=== PATIENT | female | born 1995 | race Caucasian/White ===

== ENCOUNTER 2016-10-22 15:27 | Emergency (ER) | payer MEDICAID ==
[~2016-10-22] VITALS: Ht 157.5 cm; Wt 85.3 kg
[~2016-10-22 15:27] MED LIST: ACHYD1T PO; AMOX-355 PO; AMOX500C2 PO; BCP PO; BIRTH CONTROL PO; CEPH-38 PO; DCS100C PO; FLC100T1 PO; FLUO20CA42 PO; IBP800T PO; IBUP-1780 PO; METR500T PO; NITR-65 PO; NITR100C44 PO; OXYC-202 PO; OXYC1TAB12 PO; PREN-93 PO; PREN1TAB39 PO; SULF1TAB35 PO
--- OUTSIDE RECORDS SUMMARY | 2016-10-22 15:32 | XMS REPORT | Continuity of Care Document ---
Author Author [facility] Organization [facility] Address Unknown Phone Unavailable Care Team Providers Care Transportation Department Head Name Role Phone NO, LOCAL PHYSICIAN PCP Unavailable Insurance Providers Payer Name Policy Number Subscriber Name Relationship [facility] [place] [facility] [employer] [id number] Irma Clark 17 Self / Same As Patient Advance Directives Directive Response Recorded Date/Time Advance Directives No 08/12/16 12:23am Health Care Power of Network Designer No 08/12/16 12:23am Organ Donor No 08/12/16 12:23am Resuscitation Status Full Code 08/12/16 12:23am Chief Complaint and Reason for Visit Chief Complaint Abdominal/GI Problems Reason for Visit Urinary tract infection Lower abdominal pain Constipation Problems Active Problems Medical Problem Onset Date Status Constipation Unknown Acute Lower abdominal pain Unknown Acute Menorrhagia Unknown Acute Threatened miscarriage in early Unknown Acute Threatened miscarriage in early Unknown Acute Urinary tract infection Unknown Acute Medications Current Home Medications Medication Dose Units Route Directions Days/Qty Instructions Start Date Sulfamethoxazole/Trimethoprim 1 Each 1 Each Oral Twice A Day 14 Past Home Medications Medication Directions Ordered Status Vits W-Ca,Fe,Fa(<1MG) 1 Each Tablet, 1 Each Oral 10/08/11 Discontinued Acetaminophen/Hydrocodone Bitart 1 Tab Tablet, 1 Tab Oral Every 6 Hours 12/03 Discontinued [ Control] , 1 Tab Oral Daily 09/30/12 Discontinued Amoxicillin 500 Mg Capsule, 1 Each Oral Three Times A Day 03/25/14 Discontinued Nitrofurantoin Macrocrystals 100 Mg Capsule, 1 Cap Oral Twice A Day 08/29/14 Discontinued Cephalexin Monohydrate 500 Mg Capsule, 1 Each Oral Three Times A Day Discontinued Vit/Fe Fumarate/Fa 1 Each Tablet, 1 Each Oral Daily 09/04/14 Discontinued Nitrofurantoin/Nitrofuran Mac 100 Mg Capsule, 100 Mg Oral Twice A Day Discontinued Metronidazole (Flagyl) 500 Mg Tablet, 1 Each Oral Twice A Day 12/15/14 Discontinued Docusate Sodium 100 Mg Cap, 100 Mg Oral Twice A Day 04/17/15 Discontinued Ibuprofen 800 Mg Tab, 800 Mg Oral Every 6 Hours 04/17/15 Discontinued Oxycodone Hcl/Acetaminophen 1 Tab Tablet, 1-2 Tab Oral Every 4HRS as needed for Pain 04/17/15 Discontinued Fluoxetine Hcl 20 Mg Capsule, 20 Mg Oral Daily 05/22/15 Discontinued [Bcp] , 1 Tab Oral Daily 06/17/15 Discontinued Oxycodone Hcl/Acetaminophen 1 Each Tablet, 1-2 Tab Oral Every 4HRS as needed for Pain 06/18/15 Discontinued Oxycodone Hcl/Acetaminophen 1 Each Tablet, 1-2 Tab Oral Every 4HRS as needed for Pain 07/07/15 Discontinued Ibuprofen 800 Mg Tablet, 800 Mg Oral Every 8HRS as needed for Pain 07/07/15 Discontinued Social History Social History Problem Response Recorded Date/Time Alcohol Use Denies Use 07/07/2015 6:20am Recreational Drug Use No 07/07/2015 6:20am Recent Foreign Travel No 08/12/2016 12:23am Recent Infectious Disease Exposure No 08/12/2016 12:23am Sexually Transmitted Disease No 08/12/2016 12:23am HIV/AIDS No 08/12/2016 12:23am Smoking Status Never a Smoker 08/12/2016 12:23am Do you dip or chew tobacco? No 07/07/2015 6:20am Recent Hopitalizations No 08/12/2016 12:23am Sexually Transmitted Disease No 08/12/2016 12:23am Hx Sexually Transmitted Disorders No 02/08/2013 12:46pm Query Response Start Date Stop Date Smoking Status Never a Smoker Hospital Discharge Instructions No hospital discharge instructions. Plan of Care Discharge Date 08/12/16 1:57am Disposition 01 HOME, SELF-CARE Condition at Discharge Improved Instructions/Education Provided Urinary Tract Infection, Adult (DC) Prescriptions See Medication Section Referrals NO,LOCAL PHYSICIAN - Primary Care Physician Additional Instructions/Education Drink plenty of clear liquids. Complete your antibiotics as prescribed. Follow-up on your urine culture results on Tuesday to ensure you are on appropriate antibiotics. Return to care if symptoms worsen. You may take Tylenol and ibuprofen for pain. You may use a stool softener or gentle laxative such as MiraLAX (polyethylene glycol) as needed for constipation. All discharge instructions reviewed with patient and/or family. Voiced understanding. Functional Status No functional status results. Allergies, Adverse Reactions, Alerts Allergen Type Severity Reaction Status Last Updated cefaclor ([id number]) Allergy Unknown Active 04/14/15 Levofloxacin Allergy Unknown Active 08/12/16 Immunizations No immunization records. Vital Signs Acute Vital Signs Vital Response Date/Time Temperature (Fahrenheit) 97.0 degrees F (97.6 - 99.5) 08/12/2016 12:23am Temperature (Calculated Celsius) 36.33059 degrees C (36.4 - 37.5) 08/12/2016 12:23am Temperature Source Temporal 08/12/2016 12:23am Pulse Rate (adult) 94 bpm (60 - 90) 08/12/2016 12:23am Respiratory Rate 18 bpm (12 - 24) 08/12/2016 12:23am O2 Sat by Pulse Oximetry 99 % (88 - 100) 08/12/2016 12:23am Blood Pressure 138/81 mm Hg 08/12/2016 12:23am Blood Pressure Mean 100 mm Hg 08/12/2016 12:23am Pain Numeric Pain Scale 9 08/12/2016 12:23am Height (Feet) 5 feet 08/12/2016 12:23am Height (Inches) 3 inches 08/12/2016 12:23am Height (Calculated Centimeters) 160.244636 cm 08/12/2016 12:23am Weight (Pounds) 186 pounds 08/12/2016 12:23am Weight (Ounces) 0.2 oz 08/12/2016 12:23am Weight (Calculated Grams) 75932.189 gm 08/12/2016 12:23am Weight (Calculated Kilograms) 84.592139 kilograms 08/12/2016 12:23am Calculated BMI 30.72 08/12/2016 12:23am Capillary Refill Capillary Refill Less Than 3 Seconds 08/12/2016 12:23am Results Laboratory Results Test Name Result Units Flags Reference Collection Date/Time Result Date/ Time Comments White Blood Count 9.4 10^3/uL 4.3-11.0 08/12/2016 12:35am 08/12/2016 12 :47am Red Blood Count 4.73 10^6/uL 4.35-5.85 08/12/2016 12:35am 08/12/2016 12 :47am Hemoglobin 14.5 G/DL 11.5-16.0 08/12/2016 12:35am 08/12/2016 12:47am Hematocrit 42 % 35-52 08/12/2016 12:35am 08/12/2016 12:47am Mean Corpuscular Volume 88 FL 80-99 08/12/2016 12:35am 08/12/2016 12: 47am Mean Corpuscular Hemoglobin 31 PG 25-34 08/12/2016 12:35am 08/12/2016 12:47am Mean Corpuscular Hemoglobin Concent 35 G/DL 32-36 08/12/2016 12:35am 12:47am Red Cell Distribution Width 12.7 % 10.0-14.5 08/12/2016 12:35am 2015 12:47am Platelet Count 339 10^3/uL 130-400 08/12/2016 12:35am 08/12/2016 12: 47am Mean Platelet Volume 10.7 FL H 7.4-10.4 08/12/2016 12:35am 08/12/2016 12: 47am Neutrophils (%) (Auto) 49 % 42-75 08/12/2016 12:35am 08/12/2016 12: 47am Lymphocytes (%) (Auto) 42 % 12-44 08/12/2016 12:35am 08/12/2016 12: 47am Monocytes (%) (Auto) 7 % 0-12 08/12/2016 12:35am 08/12/2016 12:47am Eosinophils (%) (Auto) 2 % 0-10 08/12/2016 12:35am 08/12/2016 12:47am Basophils (%) (Auto) 0 % 0-10 08/12/2016 12:35am 08/12/2016 12:47am Neutrophils # (Auto) 4.6 X 10^3 1.8-7.8 08/12/2016 12:35am 08/12/2016 12:47am Lymphocytes # (Auto) 3.9 X 10^3 1.0-4.0 08/12/2016 12:35am 08/12/2016 12:47am Monocytes # (Auto) 0.7 X 10^3 0.0-1.0 08/12/2016 12:35am 08/12/2016 12: 47am Eosinophils # (Auto) 0.2 10^3/uL 0.0-0.3 08/12/2016 12:35am 08/12/2016 12:47am Basophils # (Auto) 0.0 10^3/uL 0.0-0.1 08/12/2016 12:35am 08/12/2016 12 :47am Urine Color YELLOW 08/12/2016 12:28am 08/12/2016 12:46am Urine Clarity CLEAR 08/12/2016 12:28am 08/12/2016 12:46am Urine pH 5 5-9 08/12/2016 12:28am 08/12/2016 12:46am Urine Specific [place] 1.025 * 1.016-1.022 08/12/2016 12:28am 2015 12:46am Urine Protein NEGATIVE NEGATIVE 08/12/2016 12:28am 08/12/2016 12: 46am Urine Glucose (UA) NEGATIVE NEGATIVE 08/12/2016 12:28am 08/12/2016 12 :46am Urine RBC (Auto) 1+ * NEGATIVE 08/12/2016 12:28am 08/12/2016 12:46am Urine Ketones NEGATIVE NEGATIVE 08/12/2016 12:28am 08/12/2016 12: 46am Urine Nitrite NEGATIVE NEGATIVE 08/12/2016 12:28am 08/12/2016 12: 46am Urine Bilirubin NEGATIVE NEGATIVE 08/12/2016 12:28am 08/12/2016 12: 46am Urine Urobilinogen NORMAL MG/DL NORMAL 08/12/2016 12:28am 08/12/2016 12 :46am Urine Leukocyte Esterase 3+ * NEGATIVE 08/12/2016 12:28am 08/12/2016 12 :46am Urine RBC RARE /HPF 08/12/2016 12:28am 08/12/2016 12:46am Urine WBC 5-10 /HPF * 08/12/2016 12:28am 08/12/2016 12:46am Urine Bacteria FEW /HPF * 08/12/2016 12:28am 08/12/2016 12:46am Urine Squamous Epithelial Cells 5-10 /HPF 08/12/2016 12:28am 2015 12:46am Urine Crystals NONE /LPF 08/12/2016 12:28am 08/12/2016 12:46am Urine Casts NONE /LPF 08/12/2016 12:28am 08/12/2016 12:46am Urine Mucus SMALL /LPF * 08/12/2016 12:28am 08/12/2016 12:46am Urine Culture Indicated YES 08/12/2016 12:28am 08/12/2016 12:46am Sodium Level 141 MMOL/L 135-145 08/12/2016 12:35am 08/12/2016 1:02am Potassium Level 3.6 MMOL/L 3.6-5.0 08/12/2016 12:35am 08/12/2016 1: 02am Chloride Level 105 MMOL/L 98-107 08/12/2016 12:35am 08/12/2016 1:02am Carbon Dioxide Level 23 MMOL/L 21-32 08/12/2016 12:35am 08/12/2016 1: 02am Anion Gap 13 MMOL/L 5-14 08/12/2016 12:35am 08/12/2016 1:02am Blood Urea Nitrogen 8 MG/DL 7-18 08/12/2016 12:35am 08/12/2016 1:02am Creatinine 0.74 MG/DL 0.60-1.30 08/12/2016 12:35am 08/12/2016 1:02am BUN/Creatinine Ratio 08/12/2016 12:35am 08/12/2016 1:02am Estimat Glomerular Filtration Rate > 60 08/12/2016 12:35am 2015 1:02am GFR INTERPRETIVE DATA UNITS FOR ESTIMATED GFR (eGFR): mL/min/1.73 M2 REFERENCE RANGE FOR ESTIMATED GFR (eGFR) eGFR NORMAL eGFR >60 MODERATELY DECREASED eGFR 30-59 SEVERLY DECREASED eGFR 15-29 KIDNEY FAILURE <15 (OR DIALYSIS) Glucose Level 108 MG/DL H 70-105 08/12/2016 12:35am 08/12/2016 1:02am Calcium Level 9.6 MG/DL 8.5-10.1 08/12/2016 12:35am 08/12/2016 1:02am Total Bilirubin 0.4 MG/DL 0.1-1.0 08/12/2016 12:35am 08/12/2016 1:02am Alkaline Phosphatase 51 U/L 40-136 08/12/2016 12:35am 08/12/2016 1: 02am Aspartate Amino Transf (AST/SGOT) 11 U/L 5-34 08/12/2016 12:35am 2015 1:02am Alanine Aminotransferase (ALT/SGPT) 15 U/L 0-55 08/12/2016 12:35am 12/2015 1:02am Total Protein 6.6 G/DL 6.4-8.2 08/12/2016 12:35am 08/12/2016 1:02am Albumin 4.3 G/DL 3.2-4.5 08/12/2016 12:35am 08/12/2016 1:02am Procedures No known history of procedures. Encounters Encounter Location Arrival/Admit Date Discharge/Depart Date Attending Provider Registered Emergency Room [facility] 08/12/16 12:13am JOSS DAMON MD Recent Diagnosis
[2016-10-22] MEDS ORDERED: diphenhydrAMINE 50 MG/ML INJ (BENADRYL) IVP ONE (15:45)
[2016-10-22] MEDS ORDERED: KETOROLAC 30 MG/ML VIAL IVP ONE (15:45)
[2016-10-22 16:01] LABS: BASOPHILS % (AUTO) 0 % (0-10); EOSINOPHILS # (AUTO) 0.1 10^3/uL (0.0-0.3); EOSINOPHILS % (AUTO) 2 % (0-10); LYMPHOCYTES # (AUTO) 2.2 X 10^3 (1.0-4.0); LYMPHOCYTES % (AUTO) 32 % (12-44); MEAN CORPUSCULAR HEMOGLOBIN 30 PG (25-34); MEAN CORPUSCULAR HGB CONC 34 G/DL (32-36); MEAN CORPUSCULAR VOLUME 90 FL (80-99); MEAN PLATELET VOLUME 10.3 FL (7.4-10.4); MONOCYTES # (AUTO) 0.5 X 10^3 (0.0-1.0); MONOCYTES % (AUTO) 8 % (0-12); NEUTROPHILS % (AUTO) 59 % (42-75); PLATELET COUNT 369 10^3/uL (130-400); RED BLOOD COUNT 4.47 10^6/uL (4.35-5.85); WHITE BLOOD COUNT 6.9 10^3/uL (4.3-11.0)
--- NOTE | 2016-10-22 16:01 | ED General ---
General Chief Complaint: General Problems/Pain Stated Complaint: HEADACHE/SWOLLEN CALFS Nursing Triage Note: PT TO ED 9 W/ PARENT FOR C/O MARTINEZ X4-5 DAYS ET BILAT LOWER EXTREMITY SWELLING. DENIES INJURY Nursing Sepsis Screen: No Definite Risk Source of Information: Patient Exam Limitations: No Limitations History of Present Illness Time Seen by Provider: 16:00 Initial Comments To ER with an occipital and bilateral temporal headache for the past 4 days constant in nature with associated nausea but no vomiting. No photophobia. No fevers chills. No head injury. She also reports swelling to bilateral lower extremities. Denies any shortness of breath or cough. Timing/Duration: 4-5 Days Severity: Moderate Associated Systoms: Nausea/Vomiting Allergies and Home Medications Allergies Coded Allergies: cefaclor (Unverified Allergy, Unknown, 04/14/15) levofloxacin (Verified Allergy, Unknown, 08/12/16) Home Medications Amoxicillin/Potassium Clav 1 Each Tablet Unknown Dose PO (Reported) Constitutional: see HPI EENTM: see HPI Respiratory: no symptoms reported Cardiovascular: no symptoms reported Genitourinary: no symptoms reported Musculoskeletal: no symptoms reported Skin: no symptoms reported Psychiatric/Neurological: See HPI Headache Hematologic/Lymphatic: No Symptoms Reported Past Jvfyypj-Etgejy-Mwjlqa Hx Patient Social History Alcohol Use: Denies Use Recreational Drug Use: No Smoking Status: Never a Smoker Recent Foreign Travel: No Contact w/Someone Who Travel: No Recent Infectious Disease Expo: No Recent Hopitalizations: No Physical Abuse Screen: No Sexual Abuse: No Immunizations Up To Date Tetanus Booster (TDap): Unknown PED Vaccines UTD: Yes Date of Influenza Vaccine: Sep 12, 2014 Surgeries HX Surgeries: Yes (urethral stretch, d&c X2, hysteroscopy) Surgeries: Adenoidectomy, Section, Orthopedic, Tonsillectomy Respiratory Hx Respiratory Disorders: No Cardiovascular Hx Cardiac Disorders: No Neurological Hx Neurological Disorders: No Reproductive System Hx Reproductive Disorders: Yes (uterine fibroids, polp, endometroisis, ov cyst) Sexually Transmitted Disease: No HIV/AIDS: No Female Reproductive Disorders: Endometriosis, Ovarian Cyst, Polycystic Ovarian Dis 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 Genitourinary Hx Genitourinary Disorders: No Gastrointestinal Hx Gastrointestinal Disorders: No Musculoskeletal Hx Musculoskeletal Disorders: No Endocrine Hx Endocrine Disorders: No HEENT HX ENT Disorders: No Loss of Vision: Denies Hearing Impairment: Denies Cancer Hx Cancer: No Psychosocial Hx Psychiatric Problems: Yes Behavioral Health Disorders: Depression Integumentary HX Skin/Integumentary Disorder: No Blood Transfusions Hx Blood Disorders: No Adverse Reaction to a Blood Tr: No Family Medical History Significant Family History: No Pertinent Family Hx Family Medial History: Arthritis 19 FATHER, Onset:40's - 50 19 MOTHER, Onset:30's - 40 Asthma G8 BROTHER, Onset:Infancy Completed stroke 19 MOTHER, Onset:40's - 50 (4 strokes) Diabetes mellitus 19 MOTHER, Onset:40's - 50 Headache disorder 19 MOTHER, Onset:30's - 40 (migraines) Hypercholesterolemia 19 MOTHER, Onset:40's - 50 Hypertension 19 FATHER, Onset:40's - 50 19 MOTHER, Onset:30's - 40 G8 BROTHER, Onset:Adolescence Severe allergy 19 MOTHER, Onset:Childhood (PCN, EES) G8 BROTHER, Onset:Childhood (PCN) No Family History of: AIDS Abdominal aortic aneurysm Bleckley's disease Alcoholism Alzheimer's disease Aphasia Cancer of mouth Cardiovascular disease Cataracts Colon cancer Congenital disease Congenital heart disease Coronary thrombosis Cystic fibrosis Deafness or hearing loss Dementia Drug abuse Dysphasia Fibrocystic disease of breast Gastroenteritis Glaucoma Infertility Kidney disease Myocardial infarction Neoplasm Not obtainable due to adoption Osteoporosis Parkinson's disease Prostate cancer Psychosocial problem Respiratory disorder Seizure disorder Thyroid disease Tuberculosis Visual disorder Physical Exam Vital Signs Vital Sign - Last 12Hours 10/22/16 15:31 Temp 98.1 Pulse 68 Resp 20 B/P 115/76 Pulse Ox 98 O2 Delivery Room Air Capillary Refill : Less Than 3 Seconds General Appearance: No Apparent Distress WD/WN Eyes: Bilateral Eye EOMI, Bilateral Eye Normal Inspection, Bilateral Eye PERRL HEENT: PERRL/EOMI TMs Normal Neck: Full Range of Motion Normal Inspection Other (JVD) Respiratory: Lungs Clear Normal Breath Sounds No Accessory Muscle Use No Respiratory DistressNo Accessory Muscle Use, No Crackles, No Decreased Breath Sounds Cardiovascular: Regular Rate, Rhythm Normal Peripheral Pulses Gastrointestinal: Normal Bowel Sounds Non Tender Soft Extremity: Normal Capillary Refill Normal Inspection Other (there is absolutely no swelling to either lower extremity) Neurologic/Psychiatric: Alert Oriented x3 No Motor/Sensory Deficits Skin: Normal Color Warm/Dry Progress/Results/Core Measures Results/Orders Lab Results Laboratory Tests Test 10/22/16 15:52 10/22/16 16:12 Range/Units Alanine Aminotransferase (ALT/SGPT) 18 0-55 U/L Albumin 4.1 3.2-4.5 G/DL Alkaline Phosphatase 48 40-136 U/L Anion Gap 9 5-14 MMOL/L Aspartate Amino Transf (AST/SGOT) 14 5-34 U/L BUN/Creatinine Ratio 10 Basophils # (Auto) 0.0 0.0-0.1 10^3/uL Basophils (%) (Auto) 0 0-10 % Blood Urea Nitrogen 7 7-18 MG/DL Calcium Level 9.1 8.5-10.1 MG/DL Carbon Dioxide Level 24 21-32 MMOL/L Chloride Level 106 98-107 MMOL/L Creatinine 0.68 0.60-1.30 MG/DL Eosinophils # (Auto) 0.1 0.0-0.3 10^3/uL Eosinophils (%) (Auto) 2 0-10 % Estimat Glomerular Filtration Rate > 60 Glucose Level 98 70-105 MG/DL Hematocrit 40 35-52 % Hemoglobin 13.5 11.5-16.0 G/DL Lymphocytes # (Auto) 2.2 1.0-4.0 X 10^3 Lymphocytes (%) (Auto) 32 12-44 % Mean Corpuscular Hemoglobin 30 25-34 PG Mean Corpuscular Hemoglobin Concent 34 32-36 G/DL Mean Corpuscular Volume 90 80-99 FL Mean Platelet Volume 10.3 7.4-10.4 FL Monocytes # (Auto) 0.5 0.0-1.0 X 10^3 Monocytes (%) (Auto) 8 0-12 % Neutrophils # (Auto) 4.0 1.8-7.8 X 10^3 Neutrophils (%) (Auto) 59 42-75 % Platelet Count 369 130-400 10^3/uL Potassium Level 4.1 3.6-5.0 MMOL/L Red Blood Count 4.47 4.35-5.85 10^6/uL Red Cell Distribution Width 13.0 10.0-14.5 % Sodium Level 139 135-145 MMOL/L Total Bilirubin 0.8 0.1-1.0 MG/DL Total Protein 6.2 L 6.4-8.2 G/DL White Blood Count 6.9 4.3-11.0 10^3/uL Urine Bacteria LARGE H /HPF Urine Bilirubin 1+ H NEGATIVE Urine Casts NONE /LPF Urine Clarity VERY CLOUDY H Urine Color YELLOW Urine Crystals NONE /LPF Urine Culture Indicated YES Urine Glucose (UA) NEGATIVE NEGATIVE Urine Ketones 1+ H NEGATIVE Urine Leukocyte Esterase 3+ H NEGATIVE Urine Mucus LARGE H /LPF Urine Nitrite NEGATIVE NEGATIVE Urine Protein 2+ H NEGATIVE Urine RBC 0-2 /HPF Urine RBC (Auto) 1+ H NEGATIVE Urine Specific [place] 1.020 1.016-1.022 Urine Squamous Epithelial Cells 25-50 H /HPF Urine Urobilinogen 1 NORMAL MG/DL Urine WBC 10-25 H /HPF Urine pH 6 5-9 My Orders Orders-SELVIN BLANTON APRN Cbc With Automated Diff (10/22/16 15:44) Comprehensive Metabolic Panel (10/22/16 15:44) BNP (10/22/16 15:44) Ua Culture If Indicated (10/22/16 15:44) Urine Bedside (10/22/16 15:44) Saline Lock/Iv-Start (10/22/16 15:44) Diphenhydramine Injection (Benadryl Inje (10/22/16 15:45) Ketorolac Injection (Toradol Injection) (10/22/16 15:45) Thyroid Stimulating Hormone (10/22/16 16:35) Urine Culture (10/22/16 16:12) Medications Given in ED Current Medications Medications Dose Ordered Sig/Taras Route Start Time Stop Time Status Last Admin Dose Admin Diphenhydramine HCl 25 mg ONCE ONCE IVP 10/22/16 15:45 10/22/16 15:46 DC 10/22/16 16:17 25 MG Ketorolac Tromethamine 30 mg ONCE ONCE IVP 10/22/16 15:45 10/22/16 15:46 DC 10/22/16 16:17 30 MG Vital Signs/I&O Vital Sign - Last 12Hours 10/22/16 15:31 Temp 98.1 Pulse 68 Resp 20 B/P 115/76 Pulse Ox 98 O2 Delivery Room Air Blood Pressure Mean: 89 Departure Impression Impression: Primary Impression: Headache Qualified Code: R51 - Headache Additional Impression: Urinary tract infection Qualified Code: N30.00 - Acute cystitis without hematuria Disposition: 01 HOME, SELF-CARE Condition: Stable Departure-Patient Inst. Decision time for Depature: 16:35 Referrals: NO,LOCAL PHYSICIAN (PCP/Family) Primary Care Physician Patient Instructions: HEADACHE, Urinary Tract Infection, Adult (DC) Add. Discharge Instructions: 1. Return to ER for any concerns 2. Keep your feet elevated as much as possible 3. Follow-up with your doctor next week. All discharge instructions reviewed with patient and/or family. Voiced understanding. Scripts Sulfamethoxazole/Trimethoprim (Bactrim Ds Tablet)1 Each Tablet1 Each PO BID #10 TAB Prov:SELVIN BLANTON APRN 10/22/16 SELVIN BLANTON APRN Oct 22, 2016 16:01
[2016-10-22 16:20] LABS: KETONES,URINE 1+ (NEGATIVE); LEUKOCYTE ESTERASE ,URINE 3+ (NEGATIVE); NITRITE,URINE NEGATIVE (NEGATIVE); PH,URINE 6 (5-9); PROTEIN,URINE 2+ (NEGATIVE); UROBILINOGEN,URINE 1 MG/DL (NORMAL)
[2016-10-22 16:31] LABS: ALANINE AMINOTRANSFERASE 18 U/L (0-55); ALBUMIN 4.1 G/DL (3.2-4.5); ANION GAP 9 MMOL/L (5-14); ASPARTATE AMINO TRANSFERASE 14 U/L (5-34); BILIRUBIN,TOTAL 0.8 MG/DL (0.1-1.0); BLOOD UREA NITROGEN 7 MG/DL (7-18); BUN/CREATININE RATIO 10; CALCIUM 9.1 MG/DL (8.5-10.1); CARBON DIOXIDE 24 MMOL/L (21-32); CHLORIDE 106 MMOL/L (98-107); CREATININE SERUM 0.68 MG/DL (0.60-1.30); GFR ESTIMATED > 60; GLUCOSE 98 MG/DL (70-105); POTASSIUM 4.1 MMOL/L (3.6-5.0); SODIUM 139 MMOL/L (135-145); TOTAL PROTEIN 6.2 G/DL (6.4-8.2)
[2016-10-22 16:35] LABS: BILIRUBIN,URINE 1+ (NEGATIVE); SQUAMOUS EPITHELIAL CELL,UR 25-50 /HPF
[2016-10-22] MEDS ORDERED: SULF1TAB35 PO (16:38)
[2016-10-22 16:56] VITALS: BP 113/65
== END 2016-10-22 16:56 | disposition home or self-care (01) ==
LOC: EDUNIT# 15:27 → ER 15:28
DX: R51 Headache (principal); N39.0 Urinary tract infection, site not specified
CPT/HCPCS: 36415; 80053; 81000; 83880; 84443; 84703; 85025; 87088; 96374; 96375

== ENCOUNTER → 2016-11-26 | Outpatient (CLI) | payer MEDICAID ==
--- OUTSIDE RECORDS SUMMARY | 2016-11-26 13:20 | XMS REPORT | Continuity of Care Document ---
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 Vital Signs Acute Vital Signs Vital Response Date/Time Temperature (Fahrenheit) 97.0 degrees F (97.6 - 99.5) 08/12/2016 12:23am Temperature (Calculated Celsius) 36.72263 degrees C (36.4 - 37.5) 08/12/2016 12:23am [...] 3 inches 08/12/2016 12:23am Height (Calculated Centimeters) 160.882927 cm 08/12/2016 12:23am Weight (Pounds) 186 pounds 08/12/2016 12:23am Weight (Ounces) 0.2 oz 08/12/2016 12:23am Weight (Calculated Grams) 10748.189 gm 08/12/2016 12:23am Weight (Calculated Kilograms) 84.851257 kilograms 08/12/2016 12:23am Calculated BMI 30.72 08/12/2016 [...] 5-9 08/12/2016 12:28am 08/12/2016 12:46am Urine Specific [place] 1.025 * 1.016-1.022 08/12/2016 12:28am 2015 12:46am [...] Date Attending Provider Registered Emergency Room [facility] 08/12/16 12:13am JOSS DAMON MD Recent Diagnosis
--- NOTE | 2016-11-26 17:47 | Diagnostic Imaging Report ---
INDICATION: History of endometriosis and polycystic ovary syndrome. FINDINGS: The uterus measures 7.6 x 4.4 x 4.3 cm. IUD is present within the uterine cavity. There is a 5 mm hypoechoic well-circumscribed lesion in the fundus of the myometrium. The right ovary measures 3.7 x 2.2 x 1.7 cm. The left ovary measures 3.6 x 2.6 x 2.4 cm. The ovaries were not identified in the transvaginal images. No significant cystic changes are noted of the ovaries. There was blood flow to the ovaries bilaterally. IMPRESSION: 1. IUD appearing in good position. There is a small 5 mm hypoechoic lesion in the myometrium of the fundus of the uterus. This could represent a small fibroid. 2. Ovaries are visualized and symmetrical with no significant cyst demonstrated on transabdominal imaging. Dictated by: Dictated on workstation # [id number]
== END ==
LOC: RAD 13:17
PROVIDERS: ATTEND Nurse Practitioner Family
DX: Z87.42 Personal history of other diseases of the female genital tract (principal)
CPT/HCPCS: 76830; 76856

== ENCOUNTER 2017-03-15 23:02 | Emergency (ER) | payer MEDICAID ==
[~2017-03-15] VITALS: Ht 157.5 cm; Wt 85.7 kg
[2017-03-15] MEDS ORDERED: DEXAMETHASONE PF 10 MG/ML (DECADRON) VIAL IM STA (23:39)
[2017-03-15] MEDS ORDERED: diphenhydrAMINE 25 MG TAB (BENADRYL) PO ONE (23:45)
--- NOTE | 2017-03-15 23:49 | ED Integumentary General ---
General Chief Complaint: Allergic Reaction Stated Complaint: POSS ALLERGIC RXN Nursing Triage Note: TO ED AMB REPORTING RASH DEVELOPPED AT 1900. PT REPORTS FINE RASH WITH ITCHING DEVELOPED AND REPORTS ON AMOXICILLIN. PRIOR HX OF ALLERGY TO AUGMENTIN Source: patient Exam Limitations: no limitations History of Present Illness Time seen by provider: 23:32 Initial Comments Here with report of rash that started on the arms and trunk and was noted tonight. She is on her second day of amoxicillin. She has reported allergy of Augmentin. She is on the amoxicillin for mild swelling although this appears to be trauma related and not infection. Denies breathing problems, swallowing problems or abdominal pain. Timing/Duration: this evening Severity: mild Location: torso, extremities Possible Cause: no cause identified Associated Symptoms: No fever, No hives, rash Allergies and Home Medications Allergies Coded Allergies: cefaclor (Unverified Allergy, Unknown, 04/14/15) levofloxacin (Verified Allergy, Unknown, 08/12/16) Home Medications Amoxicillin/Potassium Clav 1 Each Tablet, Unknown Dose PO, (Reported) Sulfamethoxazole/Trimethoprim 1 Each Tablet, 1 EACH PO BID, #10 Prescribed by: SELVIN BLANTON on 10/22/16 1638 Constitutional: see HPI, No chills, No fever EENTM: no symptoms reported Respiratory: no symptoms reported Cardiovascular: no symptoms reported Gastrointestinal: no symptoms reported Genitourinary: no symptoms reported Musculoskeletal: no symptoms reported Skin: see HPI, rash Psychiatric/Neurological: No Symptoms Reported Past Bbzczwh-Mgeiic-Utzeel Hx Patient Social History Alcohol Use: Denies Use Recreational Drug Use: No Smoking Status: Never a Smoker 2nd Hand Smoke Exposure: No Recent Foreign Travel: No Contact w/Someone Who Travel: No Recent Infectious Disease Expo: No Recent Hopitalizations: No Immunizations Up To Date Tetanus Booster (TDap): Unknown PED Vaccines UTD: Yes Date of Influenza Vaccine: Sep 12, 2014 Seasonal Allergies Seasonal Allergies: No Surgeries HX Surgeries: Yes (urethral stretch, d&c X2, hysteroscopy) Surgeries: Adenoidectomy, Section, Orthopedic, Tonsillectomy Respiratory Hx Respiratory Disorders: No Cardiovascular Hx Cardiac Disorders: No Neurological Hx Neurological Disorders: No Reproductive System Hx Reproductive Disorders: Yes (uterine fibroids, polp, endometroisis, ov cyst) Sexually Transmitted Disease: No HIV/AIDS: No Female Reproductive Disorders: Endometriosis, Ovarian Cyst, Polycystic Ovarian Dis WELLNESS RN History: IUD Genitourinary Hx Genitourinary Disorders: No Gastrointestinal Hx Gastrointestinal Disorders: No Musculoskeletal Hx Musculoskeletal Disorders: No Endocrine Hx Endocrine Disorders: No HEENT HX ENT Disorders: No Loss of Vision: Denies Hearing Impairment: Denies Cancer Hx Cancer: No Psychosocial Hx Psychiatric Problems: Yes Behavioral Health Disorders: Depression Integumentary HX Skin/Integumentary Disorder: No Blood Transfusions Hx Blood Disorders: No Adverse Reaction to a Blood Tr: No Reviewed Nursing Assessment Reviewed/Agree w Nursing PMH: Yes Family Medical History Significant Family History: No Pertinent Family Hx Family Medial History: Arthritis 19 FATHER, Onset:40's - 50 19 MOTHER, Onset:30's - 40 Asthma G8 BROTHER, Onset:Infancy Completed stroke 19 MOTHER, Onset:40's - 50 (4 strokes) Diabetes mellitus 19 MOTHER, Onset:40's - 50 Headache disorder 19 MOTHER, Onset:30 - 40 (migraines) Hypercholesterolemia 19 MOTHER, Onset:40s - 50 Hypertension 19 FATHER, Onset:40's - 50 19 MOTHER, Onset:30s - 40 G8 BROTHER, Onset:Adolescence Severe allergy 19 MOTHER, Onset:Childhood (PCN, EES) G8 BROTHER, Onset:Childhood (PCN) No Family History of: AIDS Abdominal aortic aneurysm Vladimir's disease Alcoholism Alzheimer's disease Aphasia Cancer of mouth Cardiovascular disease Cataracts Colon cancer Congenital disease Congenital heart disease Coronary thrombosis Cystic fibrosis Deafness or hearing loss Dementia Drug abuse Dysphasia Fibrocystic disease of breast Gastroenteritis Glaucoma Infertility Kidney disease Myocardial infarction Neoplasm Not obtainable due to adoption Osteoporosis Parkinson's disease Prostate cancer Psychosocial problem Respiratory disorder Seizure disorder Thyroid disease Tuberculosis Visual disorder Physical Exam Vital Signs Vital Sign - Last 12Hours 03/15/17 23:12 Temp 98.6 Pulse 84 Resp 20 B/P (MAP) 143/81 Pulse Ox 100 O2 Delivery Room Air Capillary Refill : Less Than 3 Seconds General Appearance: WD/WN, no apparent distress HEENT: PERRL/EOMI, normal ENT inspection, TMs normal, pharynx normal, other ( popping sound and sensation to the right TMJ) Neck: full range of motion, supple Cardiovascular: regular rate, rhythm, no murmur Respiratory: lungs clear Gastrointestinal: non tender, soft Extremities: non-tender, normal inspection Skin: warm/dry, rash (fine rash noted to trunk and a lesser extent the upper extremities) Skin Problem Character: rash Progress/Results/Core Measures Results/Orders My Orders Orders - DANIELLE LOPEZ MD Dexamethasone Pf Injection (Decadron Pf (03/15/17 23:39) Diphenhydramine Tablet (Benadryl Tablet) (03/15/17 23:45) Vital Signs/I&O Vital Sign - Last 12Hours 03/15/17 23:12 Temp 98.6 Pulse 84 Resp 20 B/P (MAP) 143/81 Pulse Ox 100 O2 Delivery Room Air Blood Pressure Mean: 101 Progress Note : Progress Note Seen and evaluated. Decadron 10 mg IM and Benadryl 25 mg by mouth. Discharged home with return precautions. Patient verbalize understanding instructions and agreement with plan. Departure Impression Impression: Primary Impression: Antibiotic rash Disposition: HOME, SELF-CARE Condition: Improved Departure-Patient Inst. Decision time for Depature: 23:47 Referrals: BARRETT CHEN DO (PCP/Family) Primary Care Physician Patient Instructions: Skin Rash (DC) Add. Discharge Instructions: All discharge instructions reviewed with patient and/or family. Voiced understanding. Stop the amoxicillin. You may take thrill or the generic diphenhydramine 25 mg every 6 hours as needed for itching. You may take ibuprofen 800 mg every 8 hours as needed for the swelling and pain to your jaw. Follow-up with your doctor later this week for recheck and further evaluation. Return for worsening , fever, vomiting, weakness, breathing problems, swelling of your mouth or throat or other concerns as needed. DANIELLE LOPEZ MD Mar 15, 2017 23:49
[2017-03-15 23:51] VITALS: BP 143/81
== END 2017-03-15 23:51 | disposition home or self-care (01) ==
LOC: EDUNIT# 23:02 → ER 23:06
DX: L27.0 Generalized skin eruption due to drugs and medicaments taken internally (principal); Z88.1 Allergy status to other antibiotic agents
CPT/HCPCS: 99282

== ENCOUNTER 2017-05-19 13:03 | Outpatient (CLI) | payer MEDICAID ==
[~2017-05-19] VITALS: Ht 157.5 cm; Wt 87.5 kg
[2017-05-19 13:13] VITALS: BP 122/82
[2017-05-19] MEDS ORDERED: FLUO20CA42 PO (13:17)
[2017-05-19] MEDS ORDERED: TRAM50TA2 PO (13:17)
[2017-05-19 13:44] LABS: BASOPHILS % (AUTO) 0 % (0-10); EOSINOPHILS # (AUTO) 0.2 10^3/uL (0.0-0.3); EOSINOPHILS % (AUTO) 2 % (0-10); LYMPHOCYTES # (AUTO) 2.5 X 10^3 (1.0-4.0); LYMPHOCYTES % (AUTO) 30 % (12-44); MEAN CORPUSCULAR HEMOGLOBIN 31 PG (25-34); MEAN CORPUSCULAR HGB CONC 34 G/DL (32-36); MEAN CORPUSCULAR VOLUME 90 FL (80-99); MEAN PLATELET VOLUME 10.7 FL (7.4-10.4); MONOCYTES # (AUTO) 0.6 X 10^3 (0.0-1.0); MONOCYTES % (AUTO) 8 % (0-12); NEUTROPHILS # (AUTO) 4.9 X 10^3 (1.8-7.8); NEUTROPHILS % (AUTO) 60 % (42-75); PLATELET COUNT 344 10^3/uL (130-400); RED BLOOD COUNT 4.57 10^6/uL (4.35-5.85); RED CELL DISTRIBUTION WIDTH 12.7 % (10.0-14.5); WHITE BLOOD COUNT 8.2 10^3/uL (4.3-11.0)
== END 2017-05-19 13:30 | disposition home or self-care (01) ==
LOC: PREOP 13:03
PROVIDERS: ATTEND Obstetrics & Gynecology
DX: Z01.812 Encounter for preprocedural laboratory examination (principal); Z11.2 Encounter for screening for other bacterial diseases; N93.8 Other specified abnormal uterine and vaginal bleeding; N92.1 Excessive and frequent menstruation with irregular cycle; D64.9 Anemia, unspecified; R10.2 Pelvic and perineal pain
CPT/HCPCS: 36415; 85025; 86850; 86900; 86901; 87081

== ENCOUNTER 2017-05-27 11:32 | Day surgery (SDC) | payer MEDICAID ==
[~2017-05-27] VITALS: Ht 157.5 cm; Wt 87.5 kg
[~2017-05-27 11:32] MED LIST changes: +TRAM50TA2 PO
[2017-05-27 11:45] VITALS: BP 121/69
[2017-05-27] MEDS ORDERED: metroNIDAZOLE 500 MG/100 ML IVPB (PRE-MIX) IV ONE (11:45)
[2017-05-27] MEDS ORDERED: LEVOFLOXACIN 250 MG/D5W 50 ML (PRE-MIX) IV ONE (11:45)
[2017-05-27] MEDS ORDERED: BUP/EPI 0.5% 1:200,000 (MARCAINE) 10ML VIAL IJ ONE (11:49)
[2017-05-27] MEDS ORDERED: SCOPOLAMINE 1.5 MG (TRANSDERM-SCOP) PATCH ONE (12:10)
[2017-05-27] MEDS ORDERED: FAMOTIDINE 20MG/2ML IV (PEPCID) ONE (12:10)
[2017-05-27] MEDS ORDERED: ONDANSETRON 4 MG/2 ML (SDV) Z0FRAN ONE ×3 (12:10→14:03)
[2017-05-27] MEDS ORDERED: SCOPOLAMINE 1.5 MG (TRANSDERM-SCOP) PATCH TOP ONE (12:15)
[2017-05-27] MEDS ORDERED: ONDANSETRON 4 MG/2 ML (SDV) Z0FRAN IV ONE (12:15)
[2017-05-27] MEDS ORDERED: FAMOTIDINE 20MG/2ML IV (PEPCID) IV ONE (12:15)
[2017-05-27] MEDS: LACTATED RINGERS 1,000 ML IV PRN ×2 (12:24→14:10)
[2017-05-27] MEDS ORDERED: ROCURONIUM 50 MG/5 ML (ZEMURON) VIAL IV ONE (12:26)
[2017-05-27] MEDS ORDERED: proPOfol 200 MG/20 ML (DIPRIVAN) VIAL IV ONE (12:26)
[2017-05-27] MEDS ORDERED: LACTATED RINGERS 1,000 ML IV ONE ×2 (12:26→14:08)
[2017-05-27] MEDS ORDERED: LIDOCAINE PF 2% 5 ML (XYLOCAINE) VIAL ONE (12:26)
[2017-05-27] MEDS ORDERED: DEXAMETHASONE 10 MG/ML (DECADRON) 1 ML VIAL ONE (12:26)
[2017-05-27] MEDS ORDERED: SEVOFLURANE (ULTANE) 15 ML INHAL SOLN ONE ×5 (12:26→14:09)
[2017-05-27] MEDS ORDERED: fentaNYL INJECTION 100 MCG/2 ML AMP ONE (12:27)
[2017-05-27] MEDS ORDERED: MIDAZOLAM 2 MG/2 ML (VERSED) VIAL ONE (12:27)
[2017-05-27] MEDS ORDERED: FAMO-119 PO (12:31)
[2017-05-27] MEDS ORDERED: ATRACURIUM 50 MG/5 ML (TRACRIUM) IV ONE (12:49)
[2017-05-27] MEDS ORDERED: NS (IVPB) 250 ML ONE (12:58)
[2017-05-27] MEDS ORDERED: VANCOMYCIN 1000 MG/VIAL ONE (12:58)
[2017-05-27] MEDS ORDERED: D5 LR IV SOLUTION 1,000 ML IV SCH (13:03)
--- NOTE | 2017-05-27 13:03 | Progress Note-Pre Operative ---
Pre-Operative Progress Note H&P Reviewed The H&P was reviewed, patient examined and no changes noted. Date Seen by Provider: May 27, 2017 Time Seen by Provider: 13:03 Date H&P Reviewed: May 27, 2017 Time H&P Reviewed: 13:03 Pre-Operative Diagnosis: MACY/chronic pelvic pain/history of endometriosis/ menorrhagia/prolapse SANDRA KAPLAN MD May 27, 2017 1:03 pm
[2017-05-27] MEDS ORDERED: WATER (STERILE) FOR INJ 10 ML BTL INJ ONE (13:15)
[2017-05-27] MEDS ORDERED: ESTROGENS CONJ IV 25 MG/5 ML (PREMARIN) VIAL IVP ONE (13:15)
[2017-05-27] MEDS ORDERED: KETOROLAC 30 MG/ML VIAL IVP SCH ×2 (13:15→21:00)
[2017-05-27] MEDS ORDERED: fentaNYL INJECTION 100 MCG/2 ML AMP IVP PRN (13:15)
[2017-05-27] MEDS ORDERED: VANCOMYCIN INJECTION 1,000 MG in NS (IVPB) 250 ML IV ONE ×4 (13:15)
[2017-05-27] MEDS ORDERED: BENZOCAINE/MENTHOL (DERMOPLAST) 56 ML CAN TP PRN (13:15)
[2017-05-27] MEDS ORDERED: oxyCODONE/APAP 10/325MG (PERCOCET 10) TABLET PO PRN (13:15)
[2017-05-27] MEDS ORDERED: ONDANSETRON 4 MG/2 ML (SDV) Z0FRAN IVP PRN ×2 (13:15→15:00)
[2017-05-27] MEDS ORDERED: ESMOLOL 100 MG/10 ML (BREVIBLOC) VIAL ONE (13:29)
[2017-05-27] MEDS ORDERED: ESTROGENS CONJ IV 25 MG/5 ML (PREMARIN) VIAL ONE (14:02)
[2017-05-27] MEDS ORDERED: WATER (STERILE) FOR INJECTION 10 ML ONE (14:02)
[2017-05-27] MEDS ORDERED: morphine INJ 10 MG/ML 1ML (SYR OR VIAL) ONE (14:02)
[2017-05-27] MEDS ORDERED: MEPERIDINE (DEMEROL) INJ 50 MG/ML ONE (14:33)
[2017-05-27] MEDS ORDERED: MEPERIDINE (DEMEROL) INJ 50 MG/ML IVP PRN (15:00)
[2017-05-27] MEDS ORDERED: morphine INJ 10 MG/ML 1ML (SYR OR VIAL) IVP PRN (15:00)
[2017-05-27] MEDS ORDERED: HYDROmorphone (DILAUDID) 2 MG/ML VIAL IVP PRN (15:00)
[2017-05-27 15:40] VITALS: BP 121/80
[2017-05-27] MEDS ORDERED: NEOSTIGMINE (BLOXIVERZ ) 1 MG/1ML 10 ML VIAL ONE (15:58)
[2017-05-27] MEDS ORDERED: GLYCOPYRROLATE 0.2 MG/ML (ROBINUL) 2 ML VIAL ONE (15:58)
[2017-05-27 16:49] VITALS: BP 123/77
[2017-05-27] MEDS ORDERED: IBUP-1780 PO (19:42)
[2017-05-27] MEDS ORDERED: DOCU100C37 PO (19:42)
[2017-05-27] MEDS ORDERED: OXYC-465 PO (19:42)
[2017-05-27] MEDS ORDERED: NORG1TAB14 PO (19:42)
--- NOTE | 2017-05-27 19:43 | Discharge Instructions ---
Discharge Instructions Discharge Medications New, Converted or Re-Newed RX: RX on Chart Patient Instructions Patient Instructions: as directed Return to The Hospital For: as directed Activity & Diet Discharge Diet: No Restrictions Activity as Tolerated: No Orders-Post D/C & Referrals Follow Up Appt: return to clinic on Tuesday, May 30, 2017 at 930 a.m. for staple removal Call to make follow up appt. for patient in 4 weeks. Activity: Rest for 24 hours, than as tolerated. Wound Care: May remove Band-Aid tomorrow. Replace as desired. Keep incisions clean and dry. Wash daily with soap and water. Please call in RX to patient pharmacy. Diet: As tolerated-Clear Liquids only if nauseated. Tomorrow, may shower or tub bathe as desired. No driving for 24 hours, no alcoholic beverages for 24 hours, and nothing per vagina (no tampons, douching, or intercourse) for 8 weeks. Patient to return to the clinic as soon as possible for: Temperature greater than 101F, Severe Pain, Foul discharge from incision or vagina, Excessive Bleeding (more than a period). SANDRA KAPLAN MD May 27, 2017 7:43 pm
[2017-05-27 20:05] VITALS: BP 141/89
--- NOTE | 2017-05-28 00:27 | OPERATIVE REPORT ---
DATE OF SERVICE: 05/27/2017 PREOPERATIVE DIAGNOSES: Dysfunctional uterine bleeding, chronic pelvic pain, endometriosis and menometrorrhagia. POSTOPERATIVE DIAGNOSES: Dysfunctional uterine bleeding, chronic pelvic pain, endometriosis and menometrorrhagia, with pathology pending. OPERATIVE PROCEDURE: Total laparoscopic hysterectomy with bilateral salpingo-oophorectomy. OPERATIVE DESCRIPTION: With the patient in the supine position under satisfactory general anesthesia, she was repositioned in the dorsal lithotomy position in the [facility] and prepped and draped in the usual fashion for abdominal and vaginal surgery. The urinary bladder was drained via Bain catheter to dependent drainage. A weighted speculum was placed in the posterior fornix of the vagina. The cervix mucosa grasped anteriorly with a single-toothed tenaculum. Uterus was sounded to 11 cm with the uterine sound and the cervix was then serially dilated with Wm dilators to accommodate a uterine manipulator using a Allyn II with a 6 mm x 8 cm uterine probe and a 30 mm colpotomy ring. The instrument was affixed to the cervix with 2 sutures of #1 Vicryl placed one at 3 o'clock and one at 9 o'clock. The patient was now brought into low dorsal lithotomy position. A 12 mm incision was made 4 cm superior to the umbilicus. Veress needle was placed through that incision into the abdominal cavity. Correct placement confirmed with the water drop test. The abdomen was insufflated with 2.4 liters of carbon dioxide and then the Veress needle was removed and a 12 mm Optiview laparoscopic port placed under direct vision. The abdominal wall was transilluminated and ports of 8 mm were placed 9 cm lateral to the umbilicus on each side. All port sites were infiltrated with 0.25% Marcaine with epinephrine prior to incision. The laparoscope was placed through the umbilical port. The abdominal wall transilluminated and ports of 8 mm were placed through the incisions at those sites. The patient placed in Trendelenburg allowing the bowel to spill up out of the pelvis. There were some adhesions of the sigmoid to the left pelvic brim and the left IP ligament. There was extensive mottling of the uterus consistent with adenomyosis. There were endometriosis implants on the uterus and on both fallopian tubes. There appeared to be possibly some on the ovaries and in the ovarian fossae bilaterally. Laparoscope was rotated. The appendix was surgically absent and the upper abdomen examined and there was no abnormal pathology noted there. Using a vessel sealer on the right and a bipolar fenestrated grasper on the left, the procedure was initiated by grasping and elevating the right fallopian tube and ovary and then clamping, cauterizing, dividing first the IP ligament, then the mesovarium, the round ligament, the broad ligament and eventually the cardinal ligament. This allowed for removal of the right tube and ovary eventually with the uterus. The same procedure was performed on the left. There were some adhesions that were taken down first to free the sigmoid from its adhesions on the left pelvic brim and then the adnexa was in the same manner as the right. The anterior lower uterine segment peritoneum was exposed by retroverting the uterus. The bipolar fenestrated grasper remained in place and the other instrument was replaced with the monopolar shear. The anterior lower uterine segment peritoneum was carefully divided and then the bladder dissected bluntly down off the lower uterine segment, exposing the colpotomy ring through the vaginal wall. Colpotomy incision was made at the 12 o'clock position onto the colpotomy ring. That incision was extended circumferentially until the entire colpotomy ring was exposed, sealing all blood vessels as they were encountered. With the colpotomy complete, the uterus with the tubes and ovaries still attached was delivered through the vagina. The vaginal cuff was then closed, replacing the monopolar shear with a marychuy cut needle mixer driver and using 2 sutures of V-Loc Barbed suture starting first from the right angle of the vagina and continuing to just past the mid portion of the vaginal cuff and then doing the same thing on the left and ensuring inclusion of the uterine vessel pedicles into the closure on their respective sides. The bladder peritoneum was brought back down onto the vaginal cuff with the last couple stitches from the left side. The pelvis was then irrigated and examined for hemostasis which was complete. Both ureters were seen to peristalsis. There was no remaining abnormal pathology and no bleeding. The procedure at this point was terminated. Both operative instruments were removed under direct vision. The patient was brought out of Trendelenburg. The abdomen was evacuated of the insufflating gas in the process of removing the ports from the patient. The skin incisions were closed with neel. The fascia at the umbilical incision was closed with a hnyqax-ln-prqcd suture of 2-0 Vicryl. The speculum was replaced in the vagina. The vaginal cuff was examined and was found to be completely reapproximated and closed and completely hemostatic. Sponge and needle counts were correct at the end of the procedure. Estimated blood loss for the procedure was minimal. The patient tolerated the procedure well and was uneventfully awakened from her general anesthesia and transferred to the recovery room in stable condition with plans for discharge home after 23-hour observation. Job ID: [id number] DocumentID: [id number] Dictated Date: 05/27/2017 14:27:12 Infantryman Date: 05/28/2017 00:26:25 Dictated By: SANDRA KAPLAN MD
[2017-05-28] MEDS ORDERED: ESTRADIOL 1 MG TAB (ESTRACE) PO SCH (09:00)
[2017-05-28] MEDS ORDERED: DOCUSATE SODIUM 100 MG (COLACE) CAP PO SCH (09:00)
[2017-05-28] MEDS ORDERED: VANCOMYCIN INJECTION 1,000 MG in NS (IVPB) 250 ML IV ONE (13:15)
[2017-05-28] MEDS ORDERED: IBUPROFEN 800 MG (MOTRIN) TAB PO SCH (15:00)
== END 2017-05-27 20:15 | disposition home or self-care (01) ==
LOC: SDC 11:32 → WS 15:40 → SDC 20:15
PROVIDERS: ATTEND Obstetrics & Gynecology
DX: N93.8 Other specified abnormal uterine and vaginal bleeding (principal); N92.1 Excessive and frequent menstruation with irregular cycle; N80.0 Endometriosis of uterus; N80.2 Endometriosis of fallopian tube; D25.1 Intramural leiomyoma of uterus; N83.201 Unspecified ovarian cyst, right side; N83.202 Unspecified ovarian cyst, left side; N73.6 Female pelvic peritoneal adhesions (postinfective); R10.2 Pelvic and perineal pain; F32.9 Major depressive disorder, single episode, unspecified; K21.9 Gastro-esophageal reflux disease without esophagitis; Z79.899 Other long term (current) drug therapy
CPT/HCPCS: 84703; 94664; 96361; 96375

== ENCOUNTER 2017-09-04 18:06 | Emergency (ER) | payer SELFPAY ==
[~2017-09-04] VITALS: Ht 157.5 cm; Wt 88.9 kg
[~2017-09-04 18:06] MED LIST changes: +DOCU100C37 PO; +FAMO-119 PO; +NORG1TAB14 PO; +OXYC-465 PO
--- OUTSIDE RECORDS SUMMARY | 2017-09-04 18:11 | XMS REPORT ---
Author Author CHAMBERSRASHARD Green Organization [facility] Address [address] [place] [address] Care Team Providers Care Substation Operator Chief Name Role Phone RASHARD CHAMBERS Unavailable PROBLEMS Type Condition ICD9-CM Code [id number] Code Onset Dates Condition Status SNOMED Code Problem Encounter to establish care with new doctor Z71.89 Active 264936339 Problem Leiomyoma D21.9 Active 060814873242856 Problem Psoriasis L40.9 Active 8544814 Problem Moderate episode of recurrent major depressive disorder F33.1 Active 352143393 Problem Seasonal allergic rhinitis due to pollen J30.1 Active 00414416 Problem Recurrent major depressive disorder, in full remission F33.42 Active 884889831 Problem Obesity (BMI 30-39.9) E66.9 Active 821255664 Problem Endometriosis N80.9 Active 258759910 ALLERGIES Substance Reaction Event Type Date Status Tamiflu Unknown Drug Allergy Nov, Active Levaquin Unknown Drug Allergy Nov, Active Cefaclor Unknown Drug Allergy Nov, Active Augmentin Unknown Drug Allergy Nov, Active SOCIAL HISTORY Never Assessed PLAN OF CARE Activity Details Follow Up 2 Weeks Reason:already scheduled VITAL SIGNS Height 62 in 2016-11-30 Weight 192.4 lbs 2016-11-30 Temperature 98.2 degrees Fahrenheit 2016-11-30 Heart Rate 76 bpm 2016-11-30 Respiratory Rate 18 2016-11-30 BMI 35.19 kg/m2 2016-11-30 Blood pressure systolic 112 mmHg 2016-11-30 Blood pressure diastolic 80 mmHg 2016-11-30 MEDICATIONS No Known Medications RESULTS Name Result Date Reference Range MAGNESIUM, SERUM 2016-11-30 Magnesium, Serum 2.0 1.6-2.3 Xray : Chest (IN HOUSE) 2016-11-30 PROCEDURES Procedure Date Ordered Result Body Site EKG, TRACING (IN-HOUSE) 2016-11-30 N/A LAB NOT BILLED BY [facility] Nov 30, 2016 ELECTROCARDIOGRAM, TRACING Nov 30, 2016 CHEST X-RAY Nov 30, 2016 VENIPUNCT, ROUTINE* Nov 30, 2016 IMMUNIZATIONS No Known Immunizations MEDICAL (GENERAL) HISTORY Type Description Date Medical History depression Medical History PCOS (Polycystic Ovary Syndrome) Medical History endometriosis Medical History fibroids and Polyps Medical History Family history of heart disease Medical History History of PCOS Medical History Family history of CVA Surgical History dilatation and curettage x2 Surgical History tonsillectomy and adenoidectomy Surgical History section Surgical History hysteroscopy Surgical History urethra stretched Surgical History Glass in foot removed as a child Surgical History states Gale removed a cancerous cyst from right ovary Surgical History total hysterectomy 05/2017 Hospitalization History Surgery(s)/Childbirth(s) only
--- OUTSIDE RECORDS SUMMARY | 2017-09-04 18:11 | XMS REPORT ---
Author Author CHAMBERSRASHARD Green Organization [facility] Address [address] [place] [address] Care Team Providers Care Institutional Commodity Analyst Name Role Phone CHAMBESRRASHARD Green Unavailable PROBLEMS Type Condition ICD9-CM Code LXS61-HH Code Onset Dates Condition Status SNOMED Code Problem Encounter to establish care with new doctor Z71.89 Active 141258218 Problem Leiomyoma D21.9 Active 662138377956703 Problem Psoriasis L40.9 Active 6010809 Problem Moderate episode of recurrent major depressive disorder F33.1 Active 866706764 Problem Seasonal allergic rhinitis due to pollen J30.1 Active 59404130 Problem Recurrent major depressive disorder, in full remission F33.42 Active 247586044 Problem Obesity (BMI 30-39.9) E66.9 Active 228653263 Problem Endometriosis N80.9 Active 894072159 ALLERGIES No Information SOCIAL HISTORY Never Assessed PLAN OF CARE VITAL SIGNS MEDICATIONS No Known Medications RESULTS No Results PROCEDURES No Known procedures IMMUNIZATIONS No Known Immunizations MEDICAL (GENERAL) HISTORY [...]
--- OUTSIDE RECORDS SUMMARY | 2017-09-04 18:11 | XMS REPORT ---
Author Author ANA WATSON Organization [facility] Address [address] [place] [address] Care Team Providers Care Livestock Trucker Name Role Phone ANA WATSON Unavailable PROBLEMS Type Condition ICD9-CM Code BMT56-PY Code Onset Dates Condition Status SNOMED Code Problem Encounter to establish care with new doctor Z71.89 Active 481527547 Problem Leiomyoma D21.9 Active 437345410326812 Problem Psoriasis L40.9 Active 8359009 Problem Moderate episode of recurrent major depressive disorder F33.1 Active 430353676 Problem Seasonal allergic rhinitis due to pollen J30.1 Active 62839644 Problem Recurrent major depressive disorder, in full remission F33.42 Active 066662932 Problem Obesity (BMI 30-39.9) E66.9 Active 910985472 Problem Endometriosis N80.9 Active 977910458 ALLERGIES Substance Reaction Event Type Date Status Tamiflu Unknown Drug Allergy February, Active Levaquin Unknown Drug Allergy February, Active Cefaclor Unknown Drug Allergy February, Active Augmentin Unknown Drug Allergy February, Active SOCIAL HISTORY Never Assessed PLAN OF CARE Activity Details Follow Up prn Reason: VITAL SIGNS Height 62 in 2017-03-03 Weight 192.0 lbs 2017-03-03 Temperature 97.7 degrees Fahrenheit 2017-03-03 Heart Rate 80 bpm 2017-03-03 Respiratory Rate 20 2017-03-03 BMI 35.11 kg/m2 2017-03-03 Blood pressure systolic 122 mmHg 2017-03-03 Blood pressure diastolic 78 mmHg 2017-03-03 MEDICATIONS Medication Instructions Dosage Frequency Start Date End Date Duration Status Keyannaa () Active PredniSONE 20 MG Orally Once a day 2 tablet 24h February, February, 5 days Active Zyrtec Allergy 10 MG Orally Once a day 1 tablet 24h February, Mar, 30 day(s) Active Fluoxetine HCl 20 mg Orally Once a day 1 capsule in the morning 24h Jan 90 days Active Triamcinolone Acetonide 0.025 % Externally Twice a day 1 application to affected area 12h 19 Feb, 2017 12 months Active RESULTS No Results PROCEDURES No Known procedures [...]
--- OUTSIDE RECORDS SUMMARY | 2017-09-04 18:12 | XMS REPORT ---
Author Author CHAMBERSRASHARD Green Organization [facility] Address [address] [place] [address] Care Team Providers Care Snack Bar Cashier Name Role Phone CHAMBERSRASHARD Green Unavailable PROBLEMS Type Condition ICD9-CM Code DNK37-IZ Code Onset Dates Condition Status SNOMED Code Problem Encounter to establish care with new doctor Z71.89 Active 445090456 Problem Leiomyoma D21.9 Active 051883611834076 Problem Psoriasis L40.9 Active 3350028 Problem Moderate episode of recurrent major depressive disorder F33.1 Active 839853683 Problem Seasonal allergic rhinitis due to pollen J30.1 Active 47205813 Problem Recurrent major depressive disorder, in full remission F33.42 Active 380087060 Problem Obesity (BMI 30-39.9) E66.9 Active 200174574 Problem Endometriosis N80.9 Active 180909447 ALLERGIES No Information SOCIAL HISTORY Never Assessed [...]
--- OUTSIDE RECORDS SUMMARY | 2017-09-04 18:12 | XMS REPORT ---
Author Author CHAMBERSRASHARD Green Organization [facility] Address [address] [place] [address] Care Team Providers Care Help Desk Consultant Name Role Phone RASHARD CHAMBERS Unavailable PROBLEMS Type Condition ICD9-CM Code DFB13-DP Code Onset Dates Condition Status SNOMED Code Problem Encounter to establish care with new doctor Z71.89 Active 479145643 Problem Leiomyoma D21.9 Active 075989799436333 Problem Psoriasis L40.9 Active 7198569 Problem Moderate episode of recurrent major depressive disorder F33.1 Active 498354170 Problem Seasonal allergic rhinitis due to pollen J30.1 Active 29421129 Problem Recurrent major depressive disorder, in full remission F33.42 Active 945384188 Problem Obesity (BMI 30-39.9) E66.9 Active 584711643 Problem Endometriosis N80.9 Active 315956193 ALLERGIES No Information SOCIAL HISTORY Never Assessed PLAN OF CARE Activity Details Pending Test Ultrasound : Pelvic, COMPLETE (REFLEX CPT-08749) VITAL SIGNS MEDICATIONS No Known Medications RESULTS [...]
--- OUTSIDE RECORDS SUMMARY | 2017-09-04 18:12 | XMS REPORT ---
Author Author TRISH RASHARD Organization [facility] Address [address] [place] [address] Care Team Providers Care Shovel Operator Name Role Phone CHAMBERSRASHARD Green Unavailable PROBLEMS Type Condition ICD9-CM Code XKF25-NA Code Onset Dates Condition Status SNOMED Code Problem Encounter to establish care with new doctor Z71.89 Active 862205756 Problem Leiomyoma D21.9 Active 310737471032122 Problem Psoriasis L40.9 Active 7909505 Problem Moderate episode of recurrent major depressive disorder F33.1 Active 228555742 Problem Seasonal allergic rhinitis due to pollen J30.1 Active 92331814 Problem Recurrent major depressive disorder, in full remission F33.42 Active 117158306 Problem Obesity (BMI 30-39.9) E66.9 Active 445599120 Problem Endometriosis N80.9 Active 119951680 ALLERGIES Substance Reaction Event Type Date Status Tamiflu Unknown Drug Allergy Nov, Active Levaquin Unknown Drug Allergy Nov, Active Cefaclor Unknown Drug Allergy Nov, Active Augmentin Unknown Drug Allergy Nov, Active SOCIAL HISTORY No smoking Hx information available PLAN OF CARE VITAL SIGNS MEDICATIONS Medication Instructions Dosage Frequency Start Date End Date Duration Status Fluoxetine HCl (PMDD) 20 MG 1 capsule in the morning Active RESULTS No Results PROCEDURES No Known procedures IMMUNIZATIONS No Known Immunizations
--- OUTSIDE RECORDS SUMMARY | 2017-09-04 18:12 | XMS REPORT ---
Author Author CHAMBERSRASHARD Green Organization [facility] Address [address] [place] [address] Care Team Providers Care House Decorator Name Role Phone CHAMBERSRASHARD Green Unavailable PROBLEMS Type Condition ICD9-CM Code ITZ66-AQ Code Onset Dates Condition Status SNOMED Code Problem Encounter to establish care with new doctor Z71.89 Active 635071454 Problem Leiomyoma D21.9 Active 607268490435849 Problem Psoriasis L40.9 Active 6420859 Problem Moderate episode of recurrent major depressive disorder F33.1 Active 575996232 Problem Seasonal allergic rhinitis due to pollen J30.1 Active 76926284 Problem Recurrent major depressive disorder, in full remission F33.42 Active 360918347 Problem Obesity (BMI 30-39.9) E66.9 Active 694884185 Problem Endometriosis N80.9 Active 849795308 ALLERGIES No Information SOCIAL HISTORY Never Assessed [...]
--- OUTSIDE RECORDS SUMMARY | 2017-09-04 18:12 | XMS REPORT ---
Author Author CHAMBERSRASHARD Green Organization [facility] Address [address] [place] [address] Care Team Providers Care Coagulation Operator Name Role Phone CHAMBERSRASHARD Green Unavailable PROBLEMS Type Condition ICD9-CM Code [id number]-SL Code Onset Dates Condition Status SNOMED Code Problem Encounter to establish care with new doctor Z71.89 Active 244981353 Problem Leiomyoma D21.9 Active 343025240632567 Problem Psoriasis L40.9 Active 7978824 Problem Moderate episode of recurrent major depressive disorder F33.1 Active 938925517 Problem Seasonal allergic rhinitis due to pollen J30.1 Active 53580708 Problem Recurrent major depressive disorder, in full remission F33.42 Active 218693542 Problem Obesity (BMI 30-39.9) E66.9 Active 874321889 Problem Endometriosis N80.9 Active 027633611 ALLERGIES No Information SOCIAL HISTORY Never Assessed [...]
--- OUTSIDE RECORDS SUMMARY | 2017-09-04 18:12 | XMS REPORT ---
Author Author ANA WATSON Organization [facility] Address [address] [place] [address] Care Team Providers Care Dermatology Specialist Name Role Phone WALTER ANA Unavailable PROBLEMS Type Condition ICD9-CM Code NZZ76-[id number] Code Onset Dates Condition Status SNOMED Code Problem Encounter to establish care with new doctor Z71.89 Active 768521535 Problem Leiomyoma D21.9 Active 555929331344596 Problem Psoriasis L40.9 Active 5722118 Problem Moderate episode of recurrent major depressive disorder F33.1 Active 361221100 Problem Seasonal allergic rhinitis due to pollen J30.1 Active 85015061 Problem Recurrent major depressive disorder, in full remission F33.42 Active 624362734 Problem Obesity (BMI 30-39.9) E66.9 Active 321992501 Problem Endometriosis N80.9 Active 857612223 ALLERGIES Substance Reaction Event Type Date Status Tamiflu Unknown Drug Allergy Dec, Active Levaquin Unknown Drug Allergy Dec, Active Cefaclor Unknown Drug Allergy Dec, Active Augmentin Unknown Drug Allergy Dec, Active SOCIAL HISTORY Never Assessed PLAN OF CARE Activity Details Follow Up prn Reason: VITAL SIGNS Height 62 in 2016-12-19 Weight 198.8 lbs 2016-12-19 Temperature 98.6 degrees Fahrenheit 2016-12-19 Heart Rate 84 bpm 2016-12-19 Respiratory Rate 18 2016-12-19 BMI 36.36 kg/m2 2016-12-19 Blood pressure systolic 128 mmHg 2016-12-19 Blood pressure diastolic 68 mmHg 2016-12-19 MEDICATIONS Medication Instructions Dosage Frequency Start Date End Date Duration Status Diflucan 150 MG Orally Take one tablet today and repeat in 72 hours as directed Dec, Dec, 4 days Active RESULTS Name Result Date Reference Range PAP TEST, HPV IF ASCUS 2016-12-20 DIAGNOSIS: Specimen adequacy: Clinician provided ICD10: Performed by: . . Note: . TRICHOMONAS (IN HOUSE) 2016-12-19 TRICHOMONAS negative Control + Lot # [id number] Exp date 2017-04 UA LONG DIP (IN HOUSE) 2016-12-19 Lot # [id number] Exp date 2017-11-09 Clarity clear Color yellow Odor none GLU negative KEVYN negative KET negative SG >=1.030 BLO trace- intact pH 6.5 Protein 1+ URO 0.2 NIT negative DARLEEN negative Lot # [id number] Exp date 2017-11 PDF Report 2016-12-20 PDF Report1 LCLS BACTERIAL VAGINOSIS (IN HOUSE) 2016-12-19 RESULTS negative Control + Lot # [id number] Exp date 2017-06 CULTURE, GENITAL 2016-12-20 Genital Culture, Routine Final report Result 1 PROCEDURES Procedure Date Ordered Result Body Site GARCIA VAG, DNA, DIR PROBE December 19, 2016 CULTURE, BACTERIA, OTHER December 19, 2016 TRICHOMONAS ASSAY W/OPTIC December 19, 2016 URINALYSIS, AUTO, W/O SCOPE December 19, 2016 SPECIMEN HANDLING December 19, 2016 IMMUNIZATIONS No Known Immunizations MEDICAL (GENERAL) [...]
--- OUTSIDE RECORDS SUMMARY | 2017-09-04 18:12 | XMS REPORT ---
Author Author CHAMBERSRASHARD Green Organization [facility] Address [address] [place] [address] Care Team Providers Care Vegetable Preparer Name Role Phone RASHARD CHAMBERS Unavailable PROBLEMS Type Condition ICD9-CM Code RZZ05-MQ Code Onset Dates Condition Status SNOMED Code Problem Encounter to establish care with new doctor Z71.89 Active 908073030 Problem Leiomyoma D21.9 Active 529071732917809 Problem Psoriasis L40.9 Active 9628866 Problem Moderate episode of recurrent major depressive disorder F33.1 Active 565222665 Problem Seasonal allergic rhinitis due to pollen J30.1 Active 99118034 Problem Recurrent major depressive disorder, in full remission F33.42 Active 077866050 Problem Obesity (BMI 30-39.9) E66.9 Active 433219816 Problem Endometriosis N80.9 Active 781507741 ALLERGIES Substance Reaction Event Type Date Status Tamiflu Unknown Drug Allergy February, Active Levaquin Unknown Drug Allergy February, Active Cefaclor Unknown Drug Allergy February, Active Augmentin Unknown Drug Allergy February, Active SOCIAL HISTORY Never Assessed PLAN OF CARE Activity Details Follow Up 3 Months Reason:[facility] VITAL SIGNS Height 62 in 2017-02-25 Weight 195.5 lbs 2017-02-25 Temperature 98.0 degrees Fahrenheit 2017-02-25 Heart Rate 88 bpm 2017-02-25 Respiratory Rate 18 2017-02-25 BMI 35.75 kg/m2 2017-02-25 Blood pressure systolic 118 mmHg 2017-02-25 Blood pressure diastolic 74 mmHg 2017-02-25 MEDICATIONS Medication Instructions Dosage Frequency Start Date End Date Duration Status Fluoxetine HCl 20 mg Orally Once a day 1 capsule in the morning 24h Jan 90 days Active Triamcinolone Acetonide 0.025 % Externally Twice a day 1 application to affected area 12h February, 12 months Active Zovia (28) Active RESULTS No Results PROCEDURES No Known [...]
--- OUTSIDE RECORDS SUMMARY | 2017-09-04 18:12 | XMS REPORT ---
Author Author CHAMBERSRASHARD Green Organization [facility] Address [address] [place] [address] Care Team Providers Care Intercell Connector Placer Name Role Phone RASHARD CHAMBERS Unavailable PROBLEMS Type Condition ICD9-CM Code [id number]-[id number] Code Onset Dates Condition Status SNOMED Code Problem Encounter to establish care with new doctor Z71.89 Active 665612686 Problem Leiomyoma D21.9 Active 747601885679115 Problem Psoriasis L40.9 Active 6452168 Problem Moderate episode of recurrent major depressive disorder F33.1 Active 463330013 Problem Seasonal allergic rhinitis due to pollen J30.1 Active 25262816 Problem Recurrent major depressive disorder, in full remission F33.42 Active 064981314 Problem Obesity (BMI 30-39.9) E66.9 Active 130289867 Problem Endometriosis N80.9 Active 826707775 ALLERGIES No Information SOCIAL HISTORY Never Assessed PLAN OF CARE VITAL SIGNS MEDICATIONS No Known Medications RESULTS Name Result Date Reference Range Ultrasound : Pelvic, COMPLETE (REFLEX CPT-[id number]) 2016-11-26 PROCEDURES No Known procedures IMMUNIZATIONS No Known [...]
--- OUTSIDE RECORDS SUMMARY | 2017-09-04 18:13 | XMS REPORT ---
Author Author AMILCAR SHERMAN Organization [facility] Address [address] [place] [address] Care Team Providers Care Fiscal Clerk Name Role Phone AMILCAR SHERMAN Unavailable PROBLEMS Type Condition ICD9-CM Code YRY18-AD Code Onset Dates Condition Status SNOMED Code Problem Encounter to establish care with new doctor Z71.89 Active 111255424 Problem Leiomyoma D21.9 Active 771713653554509 Problem Psoriasis L40.9 Active 2206485 Problem Moderate episode of recurrent major depressive disorder F33.1 Active 022155311 Problem Recurrent major depressive disorder, in full remission F33.42 Active 953011363 Problem Seasonal allergic rhinitis due to pollen J30.1 Active 27357096 Problem Obesity (BMI 30-39.9) E66.9 Active 654358697 Problem Endometriosis N80.9 Active 273042824 ALLERGIES Substance Reaction Event Type Date Status Tamiflu Unknown Drug Allergy Sep, Active Levaquin Unknown Drug Allergy Sep, Active Cefaclor Unknown Drug Allergy Sep, Active Augmentin Unknown Drug Allergy Sep, Active SOCIAL HISTORY No smoking Hx information available PLAN OF CARE Activity Details Follow Up prn Reason: VITAL SIGNS Height 62 in 2016-10-05 Weight 191.8 lbs 2016-10-05 Temperature 97.2 degrees Fahrenheit 2016-10-05 Heart Rate 74 bpm 2016-10-05 Respiratory Rate 20 2016-10-05 BMI 35.08 kg/m2 2016-10-05 Blood pressure systolic 110 mmHg 2016-10-05 Blood pressure diastolic 72 mmHg 2016-10-05 MEDICATIONS Medication Instructions Dosage Frequency Start Date End Date Duration Status Zyrtec Allergy 10 MG Orally Once a day 1 tablet 24h Sep, Oct, 30 day(s) Active Cortisporin 3.5-02643-5 Otic Three times a day 4 drops into affected ear 8h Sep, 7 days Active Flonase Allergy Relief 50 MCG/ACT Nasally Once a day 1 spray in each nostril 24h Sep, 30 day(s) Active RESULTS No Results PROCEDURES Procedure Date Ordered Related Diagnosis Body Site Office Visit, Est Pt., Level 3 Oct 05, 2016 IMMUNIZATIONS No Known Immunizations
--- OUTSIDE RECORDS SUMMARY | 2017-09-04 18:13 | XMS REPORT ---
Author Author TRISH RASHARD Organization [facility] Address [address] [place] [address] Care Team Providers Care Procedure Tech Name Role Phone CHAMBERSRASHARD Green Unavailable PROBLEMS Type Condition ICD9-CM Code WCT61-SA Code Onset Dates Condition Status SNOMED Code Problem Encounter to establish care with new doctor Z71.89 Active 801027483 Problem Leiomyoma D21.9 Active 361714540525497 Problem Psoriasis L40.9 Active 7999626 Problem Moderate episode of recurrent major depressive disorder F33.1 Active 362949245 Problem Seasonal allergic rhinitis due to pollen J30.1 Active 42989829 Problem Recurrent major depressive disorder, in full remission F33.42 Active 207661194 Problem Obesity (BMI 30-39.9) E66.9 Active 585895042 Problem Endometriosis N80.9 Active 124229574 ALLERGIES Substance Reaction Event Type Date Status Tamiflu Unknown Drug Allergy Nov, Active Levaquin Unknown Drug Allergy Nov, Active Cefaclor Unknown Drug Allergy Nov, Active Augmentin Unknown Drug Allergy Nov, Active SOCIAL HISTORY Never Assessed PLAN OF CARE Activity Details Follow Up 4 Weeks Reason:f/u labs- VITAL SIGNS Height 62 in 2016-11-19 Weight 191 lbs 2016-11-19 Temperature 98.4 degrees Fahrenheit 2016-11-19 Heart Rate 80 bpm 2016-11-19 Respiratory Rate 20 2016-11-19 BMI 34.93 kg/m2 2016-11-19 Blood pressure systolic 104 mmHg 2016-11-19 Blood pressure diastolic 60 mmHg 2016-11-19 MEDICATIONS Medication Instructions Dosage Frequency Start Date End Date Duration Status Cetirizine HCl 10 mg Orally Once a day 1 tablet 24h Nov, Aug, 90 days Active Fluoxetine HCl (PMDD) 20 MG 1 capsule in the morning Active RESULTS Name Result Date Reference Range THYROID ANALYZER 2016-11-19 TSH 1.530 0.450-4.500 A1C 2016-11-19 Hemoglobin A1c 5.4 4.8-5.6 INSULIN LEVEL 2016-11-19 Insulin 18.5 2.6-24.9 CBC 2016-11-19 WBC 7.7 3.4-10.8 RBC 4.63 3.77-5.28 Hemoglobin 13.9 11.1-15.9 Hematocrit 41.1 34.0-46.6 MCV 89 79-97 MCH 30.0 26.6-33.0 MCHC 33.8 31.5-35.7 RDW 13.2 12.3-15.4 Platelets 392 150-379 Neutrophils 56 Lymphs 34 Monocytes 8 Eos 2 Basos 0 Neutrophils (Absolute) 4.3 1.4-7.0 Lymphs (Absolute) 2.6 0.7-3.1 Monocytes(Absolute) 0.6 0.1-0.9 Eos (Absolute) 0.1 0.0-0.4 Baso (Absolute) 0.0 0.0-0.2 Immature Granulocytes 0 Immature Grans (Abs) 0.0 0.0-0.1 LIPID PANEL 2016-11-19 Cholesterol, Total 139 100-199 Triglycerides 115 0-149 HDL Cholesterol 46 >39 VLDL Cholesterol Messi 23 5-40 LDL Cholesterol Calc 70 0-99 CMP 2016-11-19 Glucose, Serum 83 65-99 BUN 7 6-20 Creatinine, Serum 0.56 0.57-1.00 eGFR If NonAfricn Am 133 >59 eGFR If Africn Am 153 >59 BUN/Creatinine Ratio 13 8-20 Sodium, Serum 142 134-144 Potassium, Serum 4.2 3.5-5.2 Chloride, Serum 101 96-106 Carbon Dioxide, Total 23 18-29 Calcium, Serum 9.5 8.7-10.2 Protein, Total, Serum 6.2 6.0-8.5 Albumin, Serum 4.0 3.5-5.5 Globulin, Total 2.2 1.5-4.5 A/G Ratio 1.8 1.1-2.5 Bilirubin, Total 0.3 0.0-1.2 Alkaline Phosphatase, S 50 39-117 AST (SGOT) 12 0-40 ALT (SGPT) 16 0-32 PROCEDURES Procedure Date Ordered Result Body Site GLYCATED HEMOGLOBIN TEST Nov 19, 2016 [facility] Nov 19, 2016 VENIPUNCT, ROUTINE* Nov 19, 2016 IMMUNIZATIONS No Known Immunizations MEDICAL [...]
--- NOTE | 2017-09-04 18:29 | ED General ---
General Chief Complaint: Oral/Throat Problems Stated Complaint: RASH/THROAT PAIN Source of Information: Patient Exam Limitations: No Limitations History of Present Illness Time Seen by Provider: 18:27 Initial Comments To ER with a diffuse itchy rash for 3 days. No known cause. Sore throat since this morning. No fevers. Timing/Duration: 2-3 Days Severity: Moderate Allergies and Home Medications Allergies Coded Allergies: Penicillins (Verified Allergy, Unknown, HIVES, 05/19/17) amoxicillin (Verified Allergy, Unknown, HIVES, 05/19/17) cefaclor (Unverified Allergy, Unknown, 04/14/15) clavulanic acid (Verified Allergy, Unknown, HIVES, 05/19/17) levofloxacin (Verified Allergy, Unknown, 08/12/16) Home Medications Docusate Sodium 100 Mg Capsule, 100 MG PO BID, #60 Prescribed by: SANDRA MARTINEZ on 05/27/171941 Famotidine 20 Mg Tablet, 20 MG PO PRN, (Reported) Fluoxetine HCl 20 Mg Capsule, 20 MG PO DAILY, (Reported) Ibuprofen 800 Mg Tablet, 800 MG PO Q6H, #60 Prescribed by: SANDRA MARTINEZ on 05/27/171941 Norgestimate-Ethinyl Estradiol 1 Each Tablet, 1 EACH PO DAILY for 90 Days, #90 Ref 4 Prescribed by: SANDRA MARTINEZ on 05/27/171941 Oxycodone HCl/Acetaminophen 1 Each Tablet, 1-2 TAB PO Q4HR PRN for PAIN- MODERATE TO SEVERE, #60 Prescribed by: SANDRA MARTINEZ on 05/27/171941 Tramadol HCl 50 Mg Tablet, 50 MG PO Q6H PRN for PAIN-MILD TO MODERATE, (Reported ) Constitutional: see HPI, No chills, No fever EENTM: see HPI Respiratory: no symptoms reported, No cough Cardiovascular: no symptoms reported Genitourinary: no symptoms reported Musculoskeletal: no symptoms reported Skin: see HPI, pruritus, rash Psychiatric/Neurological: No Symptoms Reported Hematologic/Lymphatic: No Symptoms Reported Past [place]-Owygbk-Oqcvub Hx Patient Social History 2nd Hand Smoke Exposure: No Recent Foreign Travel: No Contact w/Someone Who Travel: No Recent Hopitalizations: No Immunizations Up To Date Tetanus Booster (TDap): Unknown PED Vaccines UTD: Yes Date of Influenza Vaccine: Sep 12, 2014 Seasonal Allergies Seasonal Allergies: No Surgeries History of Surgeries: Yes (urethral stretch, d&c X2, hysteroscopy) Surgeries: Adenoidectomy, Section, Orthopedic, Tonsillectomy Respiratory History of Respiratory Disorde: No Cardiovascular History of Cardiac Disorders: No Neurological History of Neurological Disord: No Reproductive System Hx Reproductive Disorders: Yes (uterine fibroids, polp, endometroisis, ov cyst) Sexually Transmitted Disease: No HIV/AIDS: No Female Reproductive Disorders: Endometriosis, Ovarian Cyst, Polycystic Ovarian Dis PRETZEL TWISTER History: IUD Genitourinary History of Genitourinary Disor: Yes (urethral stricture) Gastrointestinal History of Gastrointestinal Di: No Musculoskeletal History of Musculoskeletal Dis: No Endocrine History of Endocrine Disorders: No HEENT Loss of Vision: Denies Hearing Impairment: Denies Cancer History of Cancer: No Psychosocial History of Psychiatric Problem: Yes Behavioral Health Disorders: Depression Integumentary History of Skin or Integumenta: No Skin/Integumentary Disorders: Psoriasis Blood Transfusions History of Blood Disorders: No Adverse Reaction to a Blood Tr: No Family Medical History Significant Family History: No Pertinent Family Hx Family Medial History: Arthritis 19 FATHER, Onset:40's - 50 19 MOTHER, Onset:30's - 40 Asthma G8 BROTHER, Onset:Infancy Completed stroke 19 MOTHER, Onset:40's - 50 (4 strokes) Diabetes mellitus 19 MOTHER, Onset:40's - 50 Headache disorder 19 MOTHER, Onset:30's - 40 (migraines) Hypercholesterolemia 19 MOTHER, Onset:40's - 50 Hypertension 19 FATHER, Onset:40's - 50 19 MOTHER, Onset:30's - 40 G8 BROTHER, Onset:Adolescence Severe allergy 19 MOTHER, Onset:Childhood (PCN, EES) G8 BROTHER, Onset:Childhood (PCN) No Family History of: AIDS Abdominal aortic aneurysm Vladimir's disease Alcoholism Alzheimer's disease Aphasia Cancer of mouth Cardiovascular disease Cataracts Colon cancer Congenital disease Congenital heart disease Coronary thrombosis Cystic fibrosis Deafness or hearing loss Dementia Drug abuse Dysphasia Fibrocystic disease of breast Gastroenteritis Glaucoma Infertility Kidney disease Myocardial infarction Neoplasm Not obtainable due to adoption Osteoporosis Parkinson's disease Prostate cancer Psychosocial problem Respiratory disorder Seizure disorder Thyroid disease Tuberculosis Visual disorder Physical Exam Vital Signs Vital Sign - Last 12Hours 09/04/17 18:27 Temp 97.5 Pulse 94 Resp 18 B/P (MAP) 120/80 Pulse Ox 100 Capillary Refill : General Appearance: No Apparent Distress, WD/WN Eyes: Bilateral Eye Normal Inspection, Bilateral Eye PERRL, Bilateral Eye EOMI HEENT: PERRL/EOMI, TMs Normal, Other (there is some mild cobblestoning of the oropharynx. There is no adenopathy. Tonsils are absent.) Neck: Full Range of Motion, Normal Inspection Respiratory: No Accessory Muscle Use, No Respiratory Distress Cardiovascular: Regular Rate, Rhythm, Normal Peripheral Pulses Gastrointestinal: Normal Bowel Sounds, Non Tender, Soft Extremity: Normal Capillary Refill, Normal Inspection Neurologic/Psychiatric: Alert, Oriented x3, No Motor/Sensory Deficits, Normal Mood/Affect Skin: Normal Color, Warm/Dry, Other (diffuse faint maculopapular rash) Progress/Results/Core Measures Suspected Sepsis SIRS Temperature: Pulse: Respiratory Rate: Blood Pressure / Mean: Results/Orders Lab Results Laboratory Tests Test 09/04/17 18:22 Range/Units Group A Streptococcus Screen NEGATIVE NEGATIVE My Orders Orders - SELVIN BLANTON APRN Diphenhydramine Injection (Benadryl Inje (09/04/17 18:30) Dexamethasone Injection (Decadron Inject (09/04/17 18:30) Rapid Strep A Screen (09/04/17 18:31) Medications Given in ED Current Medications Medications Dose Ordered Sig/Taras Route Start Time Stop Time Status Last Admin Dose Admin Dexamethasone Sodium Phosphate 10 mg ONCE ONCE IM 09/04/17 18:30 09/04/17 18:31 DC 09/04/17 18:46 10 MG Diphenhydramine HCl 25 mg ONCE ONCE IM 09/04/17 18:30 09/04/17 18:31 DC 09/04/17 18:46 25 MG Vital Signs/I&O Vital Sign - Last 12Hours 09/04/17 18:27 Temp 97.5 Pulse 94 Resp 18 B/P (MAP) 120/80 Pulse Ox 100 Capillary Refill : Departure Impression Impression: Primary Impression: Viral pharyngitis Additional Impression: Rash and nonspecific skin eruption Disposition: 01 HOME, SELF-CARE Condition: Stable Departure-Patient Inst. Referrals: BARRETT CHEN DO (PCP) Primary Care Physician RASHARD CHAMBERS APRN (Family) Primary Care Physician Patient Instructions: Viral Pharyngitis (DC) SELVIN BLANTON AMBULATORY TECHNOLOGIST Sep 04, 2017 18:29
[2017-09-04] MEDS ORDERED: diphenhydrAMINE 50 MG/ML INJ (BENADRYL) IM ONE (18:30)
[2017-09-04] MEDS ORDERED: DEXAMETHASONE 10 MG/ML (DECADRON) 1 ML VIAL IM ONE (18:30)
[2017-09-04 19:06] VITALS: BP 0/0
== END 2017-09-04 19:06 | disposition home or self-care (01) ==
LOC: EDUNIT# 18:06 → ER 18:07
DX: J02.8 Acute pharyngitis due to other specified organisms (principal); R21 Rash and other nonspecific skin eruption; F32.9 Major depressive disorder, single episode, unspecified; Z87.59 Personal history of other complications of pregnancy, childbirth and the puerperium; Z87.2 Personal history of diseases of the skin and subcutaneous tissue; Z90.89 Acquired absence of other organs
CPT/HCPCS: 87430; 99284

== ENCOUNTER 2017-09-08 22:41 | Emergency (ER) | payer SELFPAY ==
[~2017-09-08] VITALS: Ht 160 cm; Wt 86.6 kg
--- NOTE | 2017-09-09 00:13 | ED EENT ---
History of Present Illness General Chief Complaint: Allergic Reaction Stated Complaint: RASH Nursing Triage Note: PATIENT C/O RASH COVERING BILAT ARMS, BACK, ABD, AND THIGHS OVER THE PAST WEEK. PATIENT WAS SEEN IN ED ABOUT A WEEK AGO IN THIS ER WHEN RASH FIRST STARTED. Source: patient, spouse Exam Limitations: no limitations History of Present Illness Time seen by provider: 00:40 Initial Comments Patient present to ER by private conveyance with chief complaint that for over a week now she's been experiencing a red itchy rash. She was seen in the ER at that time when it started and was given a shot of dexamethasone and told to take Benadryl which she did but the itching continued. She has not gotten any better the itching. Her rash is over her trunk and all 4 extremities sparing her face, genitalia, hands and feet. She's had this before but has never notified any reason why it started. She is change none of her personal hygiene items, detergents, perfumes, etc. Patient said she saw her PCP and was told to continue taking the Benadryl which she has been doing. She occasionally takes Pepcid for heartburn. She's not had any new medication changes. She has a history of psoriasis and her primary care doctor told her to use her triamcinolone on the rash but it has not made any difference in the past 3 days. Allergies and Home Medications Allergies Coded Allergies: Penicillins (Verified Allergy, Unknown, HIVES, 05/19/17) amoxicillin (Verified Allergy, Unknown, HIVES, 05/19/17) cefaclor (Unverified Allergy, Unknown, 04/14/15) clavulanic acid (Verified Allergy, Unknown, HIVES, 05/19/17) levofloxacin (Verified Allergy, Unknown, 08/12/16) Home Medications Docusate Sodium 100 Mg Capsule, 100 MG PO BID, #60 Prescribed by: SANDRA MARTINEZ on 05/27/171941 Famotidine 20 Mg Tablet, 20 MG PO PRN, (Reported) Fluoxetine HCl 20 Mg Capsule, 20 MG PO DAILY, (Reported) Ibuprofen 800 Mg Tablet, 800 MG PO Q6H, #60 Prescribed by: SANDRA MARTINEZ on 05/27/171941 Norgestimate-Ethinyl Estradiol 1 Each Tablet, 1 EACH PO DAILY for 90 Days, #90 Ref 4 Prescribed by: SANDRA MARTINEZ on 05/27/171941 Oxycodone HCl/Acetaminophen 1 Each Tablet, 1-2 TAB PO Q4HR PRN for PAIN- MODERATE TO SEVERE, #60 Prescribed by: SANDRA MARTINEZ on 05/27/171941 Tramadol HCl 50 Mg Tablet, 50 MG PO Q6H PRN for PAIN-MILD TO MODERATE, (Reported ) Review of Systems Constitutional: No chills, No diaphoresis, No fever, No malaise Eyes: Denies Blurred Vision, Denies Drainage Ears: Denies Dizziness, Denies Pain Nose: denies congestion Mouth: denies pain, denies swelling, denies bloody discharge, denies clear discharge, denies purulent discharge, denies previous injury Throat: denies pain, denies swelling Respiratory: No cough, No short of breath Cardiovascular: No chest pain, No palpitations Gastrointestinal: No abdominal pain, No constipation, No diarrhea, No nausea, No vomiting Skin: see HPI, pruritus, rash Neurological: Denies Headache, Denies Numbness, Denies Paresthesia Past [id number]-Onwtxl Hx Patient Social History 2nd Hand Smoke Exposure: No Recent Foreign Travel: No Contact w/Someone Who Travel: No Recent Infectious Disease Expo: No Recent Hopitalizations: No Immunizations Up To Date Tetanus Booster (TDap): Unknown PED Vaccines UTD: Yes Date of Influenza Vaccine: Sep 12, 2014 Seasonal Allergies Seasonal Allergies: No Surgeries History of Surgeries: Yes (urethral stretch, d&c X2, hysteroscopy) Surgeries: Adenoidectomy, Section, Hysterectomy, Orthopedic, Tonsillectomy Respiratory History of Respiratory Disorde: No Cardiovascular History of Cardiac Disorders: No Neurological History of Neurological Disord: No Reproductive System Hx Reproductive Disorders: Yes (uterine fibroids, polp, endometroisis, ov cyst) Sexually Transmitted Disease: No HIV/AIDS: No Female Reproductive Disorders: Endometriosis, Ovarian Cyst, Polycystic Ovarian Dis 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 Genitourinary History of Genitourinary Disor: Yes (urethral stricture) Gastrointestinal History of Gastrointestinal Di: No Musculoskeletal History of Musculoskeletal Dis: No Endocrine History of Endocrine Disorders: No HEENT Loss of Vision: Denies Hearing Impairment: Denies Cancer History of Cancer: No Psychosocial History of Psychiatric Problem: Yes Behavioral Health Disorders: Depression Integumentary History of Skin or Integumenta: Yes Skin/Integumentary Disorders: Psoriasis Blood Transfusions History of Blood Disorders: No Adverse Reaction to a Blood Tr: No Family Medical History Significant Family History: No Pertinent Family Hx Family Medial History: Arthritis 19 FATHER, Onset:40's - 50 19 MOTHER, Onset:30's - 40 Asthma G8 BROTHER, Onset:Infancy Completed stroke 19 MOTHER, Onset:40's - 50 (4 strokes) Diabetes mellitus 19 MOTHER, Onset:40s - 50 Headache disorder 19 MOTHER, Onset:30's - 40 (migraines) Hypercholesterolemia 19 MOTHER, Onset:40's - 50 Hypertension 19 FATHER, Onset:40's - 50 19 MOTHER, Onset:30's - 40 G8 BROTHER, Onset:Adolescence Severe allergy 19 MOTHER, Onset:Childhood (PCN, EES) G8 BROTHER, Onset:Childhood (PCN) No Family History of: AIDS Abdominal aortic aneurysm Vladimir's disease Alcoholism Alzheimer's disease Aphasia Cancer of mouth Cardiovascular disease Cataracts Colon cancer Congenital disease Congenital heart disease Coronary thrombosis Cystic fibrosis Deafness or hearing loss Dementia Drug abuse Dysphasia Fibrocystic disease of breast Gastroenteritis Glaucoma Infertility Kidney disease Myocardial infarction Neoplasm Not obtainable due to adoption Osteoporosis Parkinson's disease Prostate cancer Psychosocial problem Respiratory disorder Seizure disorder Thyroid disease Tuberculosis Visual disorder Physical Exam Vital Signs Vital Sign - Last 12Hours 09/08/17 23:23 Temp 98.1 Pulse 91 Resp 20 B/P (MAP) 143/99 (114) Pulse Ox 98 O2 Delivery Room Air General Appearance: WD/WN, no apparent distress Eyes: bilateral eye normal inspection, bilateral eye PERRL, bilateral eye EOMI Ears: bilateral ear auricle normal, bilateral ear canal normal Nose: normal inspection, No active bleeding Mouth/Throat: normal mouth inspection, pharynx normal Neck: non-tender, supple, normal inspection Respiratory: chest non-tender, lungs clear, normal breath sounds Gastrointestinal: normal bowel sounds, non tender, soft Neurologic/Psychiatric: alert, oriented x 3 Skin: rash (fine erythematous macular patches over the trunk and upper and lower extremities. A few small papular spots scattered throughout the trunk. Intensely pruritic) Progress/Results/Core Measures Results/Orders My Orders Orders - NICOLLE LINN Epinephrine 1 Mg Injection (Adrenalin I (09/09/17 00:15) Famotidine Injection (Pepcid Injection) (09/09/17 00:15) Vital Signs/I&O Vital Sign - Last 12Hours 09/08/17 23:23 Temp 98.1 Pulse 91 Resp 20 B/P (MAP) 143/99 (114) Pulse Ox 98 O2 Delivery Room Air Blood Pressure Mean: 114 Progress Note : Time: 00:52 Progress Note We'll give her a dose of Solu-Medrol and put her on a longer steroid taper. Encourage her to continue H2 antagonist as well as the second generation antihistamine. Departure Impression Impression: Primary Impression: Rash and nonspecific skin eruption Disposition: HOME, SELF-CARE Condition: Stable Departure-Patient Inst. Decision time for Depature: 00:55 Referrals: BARRETT CHEN DO (PCP) Primary Care Physician RASHARD CHAMBERS APRN (Family) Primary Care Physician Patient Instructions: Skin Rash (DC) Add. 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 Then take 3 tablets for 3 days. Then take 2 tablets for 3 days. Finally finish out 3 days of one tablet daily. Take one tablet of Zyrtec twice a day until your itching is under control. You may also take Pepcid once or twice a day in addition to the Zyrtec to help with your itching. If you're not seeing improvement by the end of your steroid taper follow-up with your primary care physician. All discharge instructions reviewed with patient and/or family. Voiced understanding. Scripts Prednisone (Prednisone) 20 Mg Tab 80 MG PO DAILY for 12 Days, #30 TAB 0 Refills 4 tablets for 3 days 3 tablets for 3 days 2 tablets for 3 days 1 tablet for 3 days Prov: NICOLLE LINN 09/09/17 Copy Copies To 1: BARRETT CHEN TITUS J Sep 09, 2017 00:12
[2017-09-09] MEDS ORDERED: FAMOTIDINE 20MG/2ML IV (PEPCID) IVP ONE (00:15)
[2017-09-09] MEDS ORDERED: EPINEPHrine INJECTION 1 MG/ML AMP IM ONE (00:15)
[2017-09-09] MEDS ORDERED: PRD20T PO (00:59)
[2017-09-09] MEDS ORDERED: methylPREDNISolone 125 MG (Solu-MEDROL) VIAL IM ONE (01:00)
[2017-09-09 01:19] VITALS: BP 153/90
== END 2017-09-09 01:19 | disposition home or self-care (01) ==
LOC: EDUNIT# 22:41 → ER 22:42
DX: R21 Rash and other nonspecific skin eruption (principal); F32.9 Major depressive disorder, single episode, unspecified; Z90.710 Acquired absence of both cervix and uterus; Z90.89 Acquired absence of other organs; Z87.448 Personal history of other diseases of urinary system; Z97.5 Presence of (intrauterine) contraceptive device

== ENCOUNTER 2017-10-16 20:43 | Emergency (ER) | payer SELFPAY ==
[~2017-10-16] VITALS: Ht 157.5 cm; Wt 90.7 kg
[~2017-10-16 20:43] MED LIST changes: +PRD20T PO
--- OUTSIDE RECORDS SUMMARY | 2017-10-16 20:51 | XMS REPORT | Continuity of Care Document ---
Author Author [facility] Organization [facility] Address Unknown Phone Unavailable Allergies Active Description Code Type Severity Reaction Onset Reported/Identified Relationship to Patient Clinical Status Yes cefaclor [id number] Drug Allergy Unknown N/A 04/14/2015 Yes levofloxacin [id number] Drug Allergy Unknown N/A 08/12/2016 Yes amoxicillin [id number] Drug Allergy Unknown HIVES 05/19/2017 Yes clavulanic acid [id number] Drug Allergy Unknown HIVES 05/19/2017 Yes Penicillins [id number] Drug Allergy Unknown HIVES 05/19/2017 Medications There is no data. Problems Date Dx Coded Attending Type Code Diagnosis Diagnosed By 10/09/2011 Ot 625.9 FEM GENITAL SYMPTOMS NOS 10/09/2011 Ot 648.93 OTH CURR COND-ANTEPARTUM 10/10/2011 Ot 640.03 THREATEN ABORT-ANTEPART 09/30/2012 Ot 276.50 VOLUME DEPLETION, UNSPECIFIED 09/30/2012 Ot 787.03 VOMITING ALONE 09/30/2012 Ot 787.91 DIARRHEA 09/30/2012 Ot 791.9 ABN URINE FINDINGS NEC 03/25/2014 SELVIN BLANTON APRN Ot 382.9 OTITIS MEDIA NOS 08/29/2014 Ot 530.81 08/29/2014 Ot 780.79 08/29/2014 Ot 786.50 08/29/2014 Ot 787.01 08/29/2014 Ot 787.91 08/29/2014 Ot 789.06 08/29/2014 Ot 640.03 08/29/2014 Ot 649.63 08/29/2014 Ot 649.63 08/29/2014 Ot 285.9 08/29/2014 Ot 632 08/29/2014 Ot 626.0 08/29/2014 Ot 626.4 08/29/2014 Ot 729.81 08/29/2014 Ot 959.5 08/29/2014 Ot E000.8 08/29/2014 Ot E928.9 08/29/2014 SANDRA KAPLAN MD Ot V72.84 08/29/2014 J LUIS GARRISON, СВЕТЛАНА Gold Ot 611.71 08/29/2014 J LUIS GARRISON, СВЕТЛАНА Gold Ot 611.72 08/29/2014 DANIELLE LOPEZ MD Ot 599.0 URIN TRACT INFECTION NOS 08/29/2014 DANIELLE LOPEZ MD Ot 640.03 THREATEN ABORT-ANTEPART 08/29/2014 DANIELLE LOPEZ MD Ot 646.63 INFECTION-ANTEPARTUM 09/04/2014 SAMEER ESCALONA Ot 640.03 THREATEN ABORT-ANTEPART 09/04/2014 SAMEER ESCALONA Ot 649.53 SPOTTING COMP , ANTEPARTUM COND 09/06/2014 SAMEER ESCALONA Ot 640.03 09/06/2014 SAMEER ESCALONA Ot 649.53 09/11/2014 Ot 530.81 09/11/2014 Ot 780.79 09/11/2014 Ot 786.50 09/11/2014 Ot 787.01 09/11/2014 Ot 787.91 09/11/2014 Ot 789.06 09/11/2014 Ot 640.03 09/11/2014 Ot 649.63 09/11/2014 Ot 649.63 09/11/2014 Ot 285.9 09/11/2014 Ot 632 09/11/2014 Ot 626.0 09/11/2014 Ot 626.4 09/11/2014 Ot 729.81 09/11/2014 Ot 959.5 09/11/2014 Ot E000.8 09/11/2014 Ot E928.9 09/11/2014 SANDRA KAPLAN MD Ot V72.84 09/11/2014 J LUIS GARRISON, СВЕТЛАНА Gold Ot 611.71 09/11/2014 J LUIS GARRISON, ВСЕТЛАНА Gold Ot 611.72 10/01/2014 СВЕТЛАНА DIETZ MD Ot 640.03 10/24/2014 СВЕТЛАНА DIETZ MD Ot 640.03 12/15/2014 Ot 646.83 PREG COMPL NEC-ANTEPART 12/15/2014 Ot 788.1 DYSURIA 04/17/2015 SANDRA KAPLAN MD Ot 621.8 DISORDERS OF UTERUS NEC 04/17/2015 SANDRA KAPLAN MD Ot 648.91 OTH CURR COND-DELIVERED 04/17/2015 SANDRA KAPLAN MD Ot 653.21 INLET CONTRACTION-DELIV 04/17/2015 SANDRA KAPLAN MD Ot 653.41 FETOPELV DISPROPOR-DELIV 04/17/2015 SANDRA KAPLAN MD Ot 660.11 BONY PELV OBSTRUCT-DELIV 04/17/2015 SANDRA KAPLAN MD Ot V06.1 [id number], COMBINED [ 04/17/2015 SANDRA KAPLAN MD Ot V27.0 DELIVER-SINGLE LIVEBORN 05/22/2015 SAMEER ESCALONA Ot 626.2 EXCESSIVE MENSTRUATION 05/22/2015 SAMEER ESCALONA Ot 648.94 OTH CURR COND- 05/22/2015 SAMEER ESCALONA Ot V45.51 PRESENCE OF INTRAUTERINE CONTRACEPTIVE D 05/23/2015 Ot 530.81 05/23/2015 Ot 780.79 05/23/2015 Ot 786.50 05/23/2015 Ot 787.01 05/23/2015 Ot 787.91 05/23/2015 Ot 789.06 05/23/2015 Ot 640.03 05/23/2015 Ot 649.63 05/23/2015 Ot 649.63 05/23/2015 Ot 285.9 05/23/2015 Ot 632 05/23/2015 Ot 626.0 05/23/2015 Ot 626.4 05/23/2015 Ot 729.81 05/23/2015 Ot 959.5 05/23/2015 Ot E000.8 05/23/2015 Ot E928.9 05/23/2015 SANDRA KAPLAN MD Ot V72.84 05/23/2015 J LUIS GARRISON, СВЕТЛАНА Gold Ot 611.71 05/23/2015 J LUIS GARRISON, СВЕТЛАНА Gold Ot 611.72 05/23/2015 J LUIS GARRISON, СВЕТЛАНА Gold Ot 640.03 06/24/2015 SANDRA KAPLAN MD Ot 625.8 06/24/2015 SANDRA KAPLAN MD Ot 626.8 06/30/2015 SANDRA KAPLAN MD Ot 285.9 06/30/2015 EUSEBIO GARRISON, SANDRA Loya Ot 625.8 06/30/2015 EUSEBIO GARRISON, SANDRA Loya Ot V72.63 06/30/2015 EUSEBIO GARRISON, SANDRA Loya Ot V74.8 06/30/2015 EUSEBIO GARRISON, SANDRA Loya Ot 625.8 06/30/2015 EUSEBIO GARRISON, SANDRA Loya Ot 626.8 07/07/2015 EUSEBIO GARRISON, SANDRA Loya Ot 218.9 UTERINE LEIOMYOMA NOS 07/07/2015 EUSEBIO GARRISON, SANDRA Loya Ot 540.9 ACUTE APPENDICITIS NOS 07/07/2015 EUSEBIO GARRISON, SANDRA Loya Ot 617.9 ENDOMETRIOSIS NOS 07/07/2015 EUSEBIO GARRISON, SANDRA Loya Ot 620.8 NONINFL DIS OVA/ADNX NEC 07/07/2015 EUSEBIO GARRISON, SANDRA Loya Ot V74.8 SCREEN-BACTERIAL DIS NEC 11/17/2015 Ot 640.03 11/17/2015 Ot 649.63 11/17/2015 Ot 649.63 11/17/2015 Ot 285.9 11/17/2015 Ot 632 11/17/2015 Ot 626.0 11/17/2015 Ot 626.4 11/17/2015 Ot 729.81 11/17/2015 Ot 959.5 11/17/2015 Ot E000.8 11/17/2015 Ot E928.9 11/17/2015 EUSEBIO GARRISON, SANDRA Loya Ot V72.84 11/17/2015 J LUIS GARRISON, СВЕТЛАНА Gold Ot 611.71 11/17/2015 J LUIS GARRISON, СВЕТЛАНА Gold Ot 611.72 11/17/2015 J LUIS GARRISON, СВЕТЛАНА Gold Ot 640.03 11/17/2015 EUSEBIO GARRISON, SANDRA Loya Ot 285.9 11/17/2015 EUSEBIO GARRISON, SANDRA Loya Ot 625.8 11/17/2015 EUSEBIO GARRISON, SANDRA Loya Ot V72.63 11/17/2015 EUSEBIO GARRISON, SANDRA Loya Ot V74.8 11/17/2015 EUSEBIO GARRISON, SANDRA Loya Ot 625.8 11/17/2015 EUSEBIO GARRISON, SANDRA Loya Ot 626.8 11/17/2015 SANDRA KAPLAN MD Ot 625.9 11/17/2015 SANDRA KAPLAN MD Ot V72.84 12/03/2015 J LUIS GARRISON, СВЕТЛАНА Gold Ot R53.83 12/03/2015 СВЕТЛАНА DIETZ MD Ot R63.5 12/03/2015 J LUIS GARRISON, СВЕТЛАНА Gold Ot S70.11XA 12/03/2015 J LUIS GARRISON, СВЕТЛАНА Gold Ot X58.XXXA 12/03/2015 J LUIS GARRISON, СВЕТАЛНА Gold Ot Y99.8 2016 Ot S99.922A 2016 Ot X58.XXXA 01/15/2016 Ot S99.922A 01/15/2016 Ot X58.XXXA 01/28/2016 Ot S99.922A UNSPECIFIED INJURY OF LEFT FOOT, INITIAL 01/28/2016 Ot X58.XXXA EXPOSURE TO OTHER SPECIFIED FACTORS, INI 08/12/2016 Ot 640.03 THREATEN ABORT-ANTEPART 08/12/2016 Ot 649.63 UTERINE SIZE DATE DISCREPANCY, ANTEPARTU 08/12/2016 Ot 649.63 UTERINE SIZE DATE DISCREPANCY, ANTEPARTU 08/12/2016 Ot 285.9 ANEMIA NOS 08/12/2016 Ot 632 MISSED 08/12/2016 Ot 626.0 ABSENCE OF MENSTRUATION 08/12/2016 Ot 626.4 IRREGULAR MENSTRUATION 08/12/2016 Ot 729.81 SWELLING OF LIMB 08/12/2016 Ot 959.5 FINGER INJURY NOS 08/12/2016 Ot E000.8 OTHER EXTERNAL CAUSE STATUS 08/12/2016 Ot E928.9 ACCIDENT NOS 08/12/2016 EUSEBIO GARRISON, SANDRA Loya Ot V72.84 EXAM PRE-OPERATIVE NOS 08/12/2016 J LUIS GARRISON, СВЕТЛАНА Gold Ot 611.71 MASTODYNIA 08/12/2016 СВЕТЛАНА DIETZ MD Ot 611.72 LUMP OR MASS IN BREAST 08/12/2016 СВЕТЛАНА DIETZ MD Ot 640.03 THREATEN ABORT-ANTEPART 08/12/2016 SANDRA KAPLAN MD Ot 285.9 ANEMIA NOS 08/12/2016 SANDRA KAPLAN MD Ot 625.8 FEM GENITAL SYMPTOMS NEC 08/12/2016 SANDRA KAPLAN MD Ot V72.63 PRE-PROCEDURAL LABORATORY EXAMINATION 08/12/2016 SANDRA KAPLAN MD Ot V74.8 SCREEN-BACTERIAL DIS NEC 08/12/2016 SANDRA KAPLAN MD Ot 625.8 FEM GENITAL SYMPTOMS NEC 08/12/2016 SANDRA KAPLAN MD Ot 626.8 MENSTRUAL DISORDER NEC 08/12/2016 SANDRA KAPLAN MD Ot 625.9 FEM GENITAL SYMPTOMS NOS 08/12/2016 SANDRA KAPLAN MD Ot V72.84 EXAM PRE-OPERATIVE NOS 08/12/2016 СВЕТЛАНА DIETZ MD Ot R53.83 OTHER FATIGUE 08/12/2016 СВЕТЛАНА DIETZ MD Ot R63.5 ABNORMAL WEIGHT GAIN 08/12/2016 СВЕТЛАНА DIETZ MD Ot S70.11XA CONTUSION OF RIGHT THIGH, INITIAL ENCOUN 08/12/2016 J LUIS GARRISON, СВЕТЛАНА Gold Ot X58.XXXA EXPOSURE TO OTHER SPECIFIED FACTORS, INI 08/12/2016 СВЕТЛАНА DIETZ MD Ot Y99.8 OTHER EXTERNAL CAUSE STATUS 08/12/2016 Ot S99.922A UNSPECIFIED INJURY OF LEFT FOOT, INITIAL 08/12/2016 Ot X58.XXXA EXPOSURE TO OTHER SPECIFIED FACTORS, INI 08/12/2016 Ot 640.03 THREATEN ABORT-ANTEPART 08/12/2016 Ot 649.63 UTERINE SIZE DATE DISCREPANCY, ANTEPARTU 08/12/2016 Ot 649.63 UTERINE SIZE DATE DISCREPANCY, ANTEPARTU 08/12/2016 Ot 285.9 ANEMIA NOS 08/12/2016 Ot 632 MISSED 08/12/2016 Ot 626.0 ABSENCE OF MENSTRUATION 08/12/2016 Ot 626.4 IRREGULAR MENSTRUATION 08/12/2016 Ot 729.81 SWELLING OF LIMB 08/12/2016 Ot 959.5 FINGER INJURY NOS 08/12/2016 Ot E000.8 OTHER EXTERNAL CAUSE STATUS 08/12/2016 Ot E928.9 ACCIDENT NOS 08/12/2016 SANDRA KAPLAN MD Ot V72.84 EXAM PRE-OPERATIVE NOS 08/12/2016 J LUIS GARRISON, СВЕТЛАНА Gold Ot 611.71 MASTODYNIA 08/12/2016 СВЕТЛАНА DIETZ MD Ot 611.72 LUMP OR MASS IN BREAST 08/12/2016 J LUIS GARRISON, СВЕТЛАНА Gold Ot 640.03 THREATEN ABORT-ANTEPART 08/12/2016 SANDRA KAPLAN MD Ot 285.9 ANEMIA NOS 08/12/2016 SANDRA KAPLAN MD Ot 625.8 FEM GENITAL SYMPTOMS NEC 08/12/2016 SANDRA KAPLAN MD Ot V72.63 PRE-PROCEDURAL LABORATORY EXAMINATION 08/12/2016 SANDRA KAPLAN MD, Ot V74.8 SCREEN-BACTERIAL DIS NEC 08/12/2016 SANDRA KAPLAN MD Ot 625.8 FEM GENITAL SYMPTOMS NEC 08/12/2016 SANDRA KAPLAN MD Ot 626.8 MENSTRUAL DISORDER NEC 08/12/2016 SANDRA KAPLAN MD Ot 625.9 FEM GENITAL SYMPTOMS NOS 08/12/2016 SANDRA KAPLAN MD Ot V72.84 EXAM PRE-OPERATIVE NOS 08/12/2016 J LUIS GARRISON, СВЕТЛАНА Gold Ot R53.83 OTHER FATIGUE 08/12/2016 J LUIS GARRISON, СВЕТЛАНА Gold Ot R63.5 ABNORMAL WEIGHT GAIN 08/12/2016 J LUIS GARRISON, СВЕТЛАНА Gold Ot S70.11XA CONTUSION OF RIGHT THIGH, INITIAL ENCOUN 08/12/2016 J LUIS GARRISON, СВЕТЛАНА Gold Ot X58.XXXA EXPOSURE TO OTHER SPECIFIED FACTORS, INI 08/12/2016 J LUIS GARRISON, СВЕТЛАНА Gold Ot Y99.8 OTHER EXTERNAL CAUSE STATUS 08/12/2016 Ot S99.922A UNSPECIFIED INJURY OF LEFT FOOT, INITIAL 08/12/2016 Ot X58.XXXA EXPOSURE TO OTHER SPECIFIED FACTORS, INI 08/12/2016 NELSON GARRISON, JOSS Nj Ot K59.00 CONSTIPATION, UNSPECIFIED 08/12/2016 NELSON GARRISON, JOSS Nj Ot M54.5 LOW BACK PAIN 08/12/2016 NELSON GARRISON, JOSS Nj Ot N39.0 URINARY TRACT INFECTION, SITE NOT SPECIF 08/12/2016 JOSS DAMON MD Ot R10.32 LEFT LOWER QUADRANT PAIN 08/12/2016 NELSON GARRISON, JOSS Nj Ot Z97.5 PRESENCE OF (INTRAUTERINE) CONTRACEPTIVE 08/13/2016 JOSS DAMON MD Ot K59.00 CONSTIPATION, UNSPECIFIED 08/13/2016 JOSS DAMON MD Ot M54.5 LOW BACK PAIN 08/13/2016 NELSON GARRISON, JOSS Nj Ot N39.0 URINARY TRACT INFECTION, SITE NOT SPECIF 08/13/2016 JOSS DAMON MD Ot R10.32 LEFT LOWER QUADRANT PAIN 08/13/2016 JOSS DAMON MD Ot Z97.5 PRESENCE OF (INTRAUTERINE) CONTRACEPTIVE 09/11/2016 SELVIN BLANTON MICROFABRICATION ENGINEER MANAGER Ot B34.9 VIRAL INFECTION, UNSPECIFIED 09/11/2016 SELVIN BLANTON MICROFABRICATION ENGINEER MANAGER Ot R59.0 LOCALIZED ENLARGED LYMPH NODES 09/13/2016 SELVIN BLANTON MICROFABRICATION ENGINEER MANAGER Ot B34.9 VIRAL INFECTION, UNSPECIFIED 09/13/2016 SELVIN BLANTON MICROFABRICATION ENGINEER MANAGER Ot R59.0 LOCALIZED ENLARGED LYMPH NODES 10/22/2016 SELVIN BLANTON APRN Ot N39.0 URINARY TRACT INFECTION, SITE NOT SPECIF 10/22/2016 SELVIN BLANTON APRN Ot R51 HEADACHE 11/29/2016 RASHARD CHAMBERS MICROFABRICATION ENGINEER MANAGER Ot Z87.42 PERSONAL HISTORY OF OTH DISEASES OF THE 11/29/2016 RASHARD CHAMBERS MICROFABRICATION ENGINEER MANAGER Ot Z87.42 PERSONAL HISTORY OF OTH DISEASES OF THE 12/13/2016 RASHARD CHAMBERS MICROFABRICATION ENGINEER MANAGER Ot Z87.42 PERSONAL HISTORY OF OTH DISEASES OF THE 03/15/2017 DANIELLE LOPEZ MD, Ot L27.0 GEN SKIN ERUPTION DUE TO DRUGS AND MEDS 03/15/2017 DANIELLE LOPEZ MD, Ot R21 RASH AND OTHER NONSPECIFIC SKIN ERUPTION 03/15/2017 DANIELLE LOPEZ MD, Ot Z88.1 ALLERGY STATUS TO OTHER ANTIBIOTIC AGENT 03/17/2017 DANIELLE LOPEZ MD, Ot L27.0 GEN SKIN ERUPTION DUE TO DRUGS AND MEDS 03/17/2017 DANIELLE LOPEZ MD, Ot R21 RASH AND OTHER NONSPECIFIC SKIN ERUPTION 03/17/2017 DANIELLE LOPEZ MD, Ot Z88.1 ALLERGY STATUS TO OTHER ANTIBIOTIC AGENT 05/19/2017 SANDRA KAPLAN MD, Ot D64.9 ANEMIA, UNSPECIFIED 05/19/2017 SANDRA KAPLAN MD, Ot N92.1 EXCESSIVE AND FREQUENT MENSTRUATION WITH 05/19/2017 SANDRA KAPLAN MD, Ot N93.8 OTHER SPECIFIED ABNORMAL UTERINE AND VAG 05/19/2017 SANDRA KAPLAN MD, Ot R10.2 PELVIC AND PERINEAL PAIN 05/19/2017 SANDRA KAPLAN MD, Ot Z01.812 ENCOUNTER FOR PREPROCEDURAL LABORATORY E 05/19/2017 SANDRA KAPLAN MD, Ot Z11.2 ENCOUNTER FOR SCREENING FOR OTHER BACTER 05/20/2017 SANDRA KAPLAN MD, Ot D64.9 ANEMIA, UNSPECIFIED 05/20/2017 SANDRA KAPLAN MD, Ot N92.1 EXCESSIVE AND FREQUENT MENSTRUATION WITH 05/20/2017 SANDRA KAPLAN MD, Ot N93.8 OTHER SPECIFIED ABNORMAL UTERINE AND VAG 05/20/2017 SANDRA KAPLAN MD, Ot R10.2 PELVIC AND PERINEAL PAIN 05/20/2017 SANDRA KAPLAN MD, Ot Z01.812 ENCOUNTER FOR PREPROCEDURAL LABORATORY E 05/20/2017 SANDRA KAPLAN MD, Ot Z11.2 ENCOUNTER FOR SCREENING FOR OTHER BACTER 05/27/2017 SANDRA KAPLAN MD, Ot D25.1 INTRAMURAL LEIOMYOMA OF UTERUS 05/27/2017 SANDRA KAPLAN MD, Ot F32.9 MAJOR DEPRESSIVE DISORDER, SINGLE EPISOD 05/27/2017 SANDRA KAPLAN MD, Ot K21.9 GASTRO-ESOPHAGEAL REFLUX DISEASE WITHOUT 05/27/2017 SANDRA KAPLAN MD Ot N73.6 FEMALE PELVIC PERITONEAL ADHESIONS (POST 05/27/2017 SANDRA KAPLAN MD, Ot N80.0 ENDOMETRIOSIS OF UTERUS 05/27/2017 SANDRA KAPLAN MD, Ot N80.2 ENDOMETRIOSIS OF FALLOPIAN TUBE 05/27/2017 SANDRA KAPLAN MD, Ot N83.201 UNSPECIFIED OVARIAN CYST, RIGHT SIDE 05/27/2017 SANDRA KAPLAN MD, Ot N83.202 UNSPECIFIED OVARIAN CYST, LEFT SIDE 05/27/2017 SANDRA KAPLAN MD, Ot N92.1 EXCESSIVE AND FREQUENT MENSTRUATION WITH 05/27/2017 SANDRA KAPLAN MD, Ot N93.8 OTHER SPECIFIED ABNORMAL UTERINE AND VAG 05/27/2017 SANDRA KAPLAN MD, Ot R10.2 PELVIC AND PERINEAL PAIN 05/27/2017 SANDRA KAPLAN MD, Ot Z79.899 OTHER HALFWAY (CURRENT) DRUG THERAPY 05/31/2017 SANDRA KAPLAN MD, Ot D25.1 INTRAMURAL LEIOMYOMA OF UTERUS 05/31/2017 SANDRA KAPLAN MD, Ot F32.9 MAJOR DEPRESSIVE DISORDER, SINGLE EPISOD 05/31/2017 SANDRA KAPLAN MD, Ot K21.9 GASTRO-ESOPHAGEAL REFLUX DISEASE WITHOUT 05/31/2017 SANDRA KAPLAN MD, Ot N73.6 FEMALE PELVIC PERITONEAL ADHESIONS (POST 05/31/2017 SANDRA KAPLAN MD, Ot N80.0 ENDOMETRIOSIS OF UTERUS 05/31/2017 SANDRA KAPLAN MD, Ot N80.2 ENDOMETRIOSIS OF FALLOPIAN TUBE 05/31/2017 SANDRA KAPLAN MD, Ot N83.201 UNSPECIFIED OVARIAN CYST, RIGHT SIDE 05/31/2017 SANDRA KAPLAN MD, Ot N83.202 UNSPECIFIED OVARIAN CYST, LEFT SIDE 05/31/2017 SANDRA KAPLAN MD, Ot N92.1 EXCESSIVE AND FREQUENT MENSTRUATION WITH 05/31/2017 SANDRA KAPLAN MD, Ot N93.8 OTHER SPECIFIED ABNORMAL UTERINE AND VAG 05/31/2017 SANDRA KAPLAN MD, Ot R10.2 PELVIC AND PERINEAL PAIN 05/31/2017 SANDRA KAPLAN MD, Ot Z79.899 OTHER APPLIED STATISTICIAN (CURRENT) DRUG THERAPY 09/04/2017 SELVIN BLANTON APRN Ot F32.9 MAJOR DEPRESSIVE DISORDER, SINGLE EPISOD 09/04/2017 SELVIN BLANTON APRN Ot J02.8 ACUTE PHARYNGITIS DUE TO OTHER SPECIFIED 09/04/2017 SELVIN BLANTON APRN Ot J02.9 ACUTE PHARYNGITIS, UNSPECIFIED 09/04/2017 SELVIN BLANTON APRN Ot R21 RASH AND OTHER NONSPECIFIC SKIN ERUPTION 09/04/2017 SELVIN BLANTON APRN Ot Z87.2 PERSONAL HISTORY OF DISEASES OF THE SKIN 09/04/2017 SELVIN BLANTON APRN Ot Z87.59 PERSONAL HISTORY OF COMP OF PREG, CHLDBR 09/04/2017 SELVIN BLANTON APRN Ot Z90.89 ACQUIRED ABSENCE OF OTHER ORGANS 09/09/2017 NICOLLE LINN MD Ot F32.9 MAJOR DEPRESSIVE DISORDER, SINGLE EPISOD 09/09/2017 NICOLLE LINN MD Ot R21 RASH AND OTHER NONSPECIFIC SKIN ERUPTION 09/09/2017 NICOLLE LINN MD Ot Z87.448 PERSONAL HISTORY OF OTHER DISEASES OF UR 09/09/2017 NICOLLE LINN MD Ot Z90.710 ACQUIRED ABSENCE OF BOTH CERVIX AND UTER 09/09/2017 NICOLLE LINN MD Ot Z90.89 ACQUIRED ABSENCE OF OTHER ORGANS 09/09/2017 NICOLLE LINN MD Ot Z97.5 PRESENCE OF (INTRAUTERINE) CONTRACEPTIVE 09/12/2017 NICOLLE LINN MD Ot F32.9 MAJOR DEPRESSIVE DISORDER, SINGLE EPISOD 09/12/2017 NICOLLE LINN MD Ot R21 RASH AND OTHER NONSPECIFIC SKIN ERUPTION 09/12/2017 NICOLLE LINN MD Ot Z87.448 PERSONAL HISTORY OF OTHER DISEASES OF UR 09/12/2017 NICOLLE LINN MD Ot Z90.710 ACQUIRED ABSENCE OF BOTH CERVIX AND UTER 09/12/2017 NICOLLE LINN MD Ot Z90.89 ACQUIRED ABSENCE OF OTHER ORGANS 09/12/2017 NICOLLE LINN MD Ot Z97.5 PRESENCE OF (INTRAUTERINE) CONTRACEPTIVE 09/14/2017 NICOLLE LINN MD Ot F32.9 MAJOR DEPRESSIVE DISORDER, SINGLE EPISOD 09/14/2017 NICOLLE LINN MD Ot R21 RASH AND OTHER NONSPECIFIC SKIN ERUPTION 09/14/2017 NICOLLE LINN MD Ot Z87.448 PERSONAL HISTORY OF OTHER DISEASES OF UR 09/14/2017 NICOLLE LINN MD Ot Z90.710 ACQUIRED ABSENCE OF BOTH CERVIX AND UTER 09/14/2017 NICOLLE LINN MD Ot Z90.89 ACQUIRED ABSENCE OF OTHER ORGANS 09/14/2017 NICOLLE LINN MD Ot Z97.5 PRESENCE OF (INTRAUTERINE) CONTRACEPTIVE Procedures Code Description Performed By Performed On 74.1 04/15/2015 Results Test Result Range Complete urinalysis with reflex to culture - 08/12/16 00:28 Urine color determination YELLOW NRG Urine clarity determination CLEAR NRG Urine pH measurement by test strip 5 5-9 Specific gravity of urine by test strip 1.025 1.016- 1.022 Urine protein assay by test strip, semi-quantitative NEGATIVE NEGATIVE Urine glucose detection by automated test strip NEGATIVE NEGATIVE Erythrocytes detection in urine sediment by light microscopy 1+ NEGATIVE Urine ketones detection by automated test strip NEGATIVE NEGATIVE Urine nitrite detection by test strip NEGATIVE NEGATIVE Urine total bilirubin detection by test strip NEGATIVE NEGATIVE Urine urobilinogen measurement by automated test strip (mass/volume) NORMAL NORMAL Urine leukocyte esterase detection by dipstick 3+ NEGATIVE Automated urine sediment erythrocyte count by microscopy (number/high power field) RARE NRG Automated urine sediment leukocyte count by microscopy (number/high power field ) [HPF] NRG Bacteria detection in urine sediment by light microscopy FEW NRG Squamous epithelial cells detection in urine sediment by light microscopy 5-10 NRG Crystals detection in urine sediment by light microscopy NONE NRG Casts detection in urine sediment by light microscopy NONE NRG Mucus detection in urine sediment by light microscopy SMALL NRG Complete urinalysis with reflex to culture YES NRG Bacterial urine culture - 08/12/16 00:28 URINE CULTURE RESULTS <10,000/ML NRG Complete blood count (CBC) with automated white blood cell (WBC) differential - 08/12/16 00:35 Blood leukocytes automated count (number/volume) 9.4 10*3/uL 4.3-11.0 Blood erythrocytes automated count (number/volume) 4.73 10*6/uL 4.35-5.85 Venous blood hemoglobin measurement (mass/volume) 14.5 g/dL 11.5-16.0 Blood hematocrit (volume fraction) 42 % 35-52 Automated erythrocyte mean corpuscular volume 88 [foz_us] 80-99 Automated erythrocyte mean corpuscular hemoglobin (mass per erythrocyte) 31 pg 25-34 Automated erythrocyte mean corpuscular hemoglobin concentration measurement ( mass/volume) 35 g/dL 32-36 Automated erythrocyte distribution width ratio 12.7 % 10.0-14.5 Automated blood platelet count (count/volume) 339 10*3/uL 130-400 Automated blood platelet mean volume measurement 10.7 [foz_us] 7.4-10.4 Automated blood neutrophils/100 leukocytes 49 % 42-75 Automated blood lymphocytes/100 leukocytes 42 % 12-44 Blood monocytes/100 leukocytes 7 % 0-12 Automated blood eosinophils/100 leukocytes 2 % 0-10 Automated blood basophils/100 leukocytes 0 % 0-10 Blood neutrophils automated count (number/volume) 4.6 10*3 1.8-7.8 Blood lymphocytes automated count (number/volume) 3.9 10*3 1.0-4.0 Blood monocytes automated count (number/volume) 0.7 10*3 0.0-1.0 Automated eosinophil count 0.2 10*3/uL 0.0-0.3 Automated blood basophil count (count/volume) 0.0 10*3/uL 0.0-0.1 Comprehensive metabolic panel - 08/12/16 00:35 Serum or plasma sodium measurement (moles/volume) 141 mmol/L 135-145 Serum or plasma potassium measurement (moles/volume) 3.6 mmol/L 3.6-5.0 Serum or plasma chloride measurement (moles/volume) 105 mmol/L 98-107 Carbon dioxide 23 mmol/L 21-32 Serum or plasma anion gap determination (moles/volume) 13 mmol/L 5-14 Serum or plasma urea nitrogen measurement (mass/volume) 8 mg/dL 7-18 Serum or plasma creatinine measurement (mass/volume) 0.74 mg/dL 0.60-1.30 Serum or plasma urea nitrogen/creatinine mass ratio 11 NRG Serum or plasma creatinine measurement with calculation of estimated glomerular filtration rate > NRG Serum or plasma glucose measurement (mass/volume) 108 mg/dL 70-105 Serum or plasma calcium measurement (mass/volume) 9.6 mg/dL 8.5-10.1 Serum or plasma total bilirubin measurement (mass/volume) 0.4 mg/dL 0.1-1.0 Serum or plasma alkaline phosphatase measurement (enzymatic activity/volume) 51 U/L 40-136 Serum or plasma aspartate aminotransferase measurement (enzymatic activity/ volume) 11 U/L 5-34 Serum or plasma alanine aminotransferase measurement (enzymatic activity/volume ) 15 U/L 0-55 Serum or plasma protein measurement (mass/volume) 6.6 g/dL 6.4-8.2 Serum or plasma albumin measurement (mass/volume) 4.3 g/dL 3.2-4.5 Complete blood count (CBC) with automated white blood cell (WBC) differential - 09/11/16 16:48 Blood leukocytes automated count (number/volume) 9.6 10*3/uL 4.3-11.0 Blood erythrocytes automated count (number/volume) 4.78 10*6/uL 4.35-5.85 Venous blood hemoglobin measurement (mass/volume) 14.5 g/dL 11.5-16.0 Blood hematocrit (volume fraction) 42 % 35-52 Automated erythrocyte mean corpuscular volume 88 [foz_us] 80-99 Automated erythrocyte mean corpuscular hemoglobin (mass per erythrocyte) 30 pg 25-34 Automated erythrocyte mean corpuscular hemoglobin concentration measurement ( mass/volume) 34 g/dL 32-36 Automated erythrocyte distribution width ratio 12.9 % 10.0-14.5 Automated blood platelet count (count/volume) 367 10*3/uL 130-400 Automated blood platelet mean volume measurement 10.5 [foz_us] 7.4-10.4 Automated blood neutrophils/100 leukocytes 66 % 42-75 Automated blood lymphocytes/100 leukocytes 27 % 12-44 Blood monocytes/100 leukocytes 6 % 0-12 Automated blood eosinophils/100 leukocytes 1 % 0-10 Automated blood basophils/100 leukocytes 0 % 0-10 Blood neutrophils automated count (number/volume) 6.3 10*3 1.8-7.8 Blood lymphocytes automated count (number/volume) 2.6 10*3 1.0-4.0 Blood monocytes automated count (number/volume) 0.6 10*3 0.0-1.0 Automated eosinophil count 0.1 10*3/uL 0.0-0.3 Automated blood basophil count (count/volume) 0.0 10*3/uL 0.0-0.1 Serum heterophile antibody titer - 09/11/16 16:48 Serum heterophile antibody titer NEGATIVE NEGATIVE Complete blood count (CBC) with automated white blood cell (WBC) differential - 10/22/16 15:52 Blood leukocytes automated count (number/volume) 6.9 10*3/uL 4.3-11.0 Blood erythrocytes automated count (number/volume) 4.47 10*6/uL 4.35-5.85 Venous blood hemoglobin measurement (mass/volume) 13.5 g/dL 11.5-16.0 Blood hematocrit (volume fraction) 40 % 35-52 Automated erythrocyte mean corpuscular volume 90 [foz_us] 80-99 Automated erythrocyte mean corpuscular hemoglobin (mass per erythrocyte) 30 pg 25-34 Automated erythrocyte mean corpuscular hemoglobin concentration measurement ( mass/volume) 34 g/dL 32-36 Automated erythrocyte distribution width ratio 13.0 % 10.0-14.5 Automated blood platelet count (count/volume) 369 10*3/uL 130-400 Automated blood platelet mean volume measurement 10.3 [foz_us] 7.4-10.4 Automated blood neutrophils/100 leukocytes 59 % 42-75 Automated blood lymphocytes/100 leukocytes 32 % 12-44 Blood monocytes/100 leukocytes 8 % 0-12 Automated blood eosinophils/100 leukocytes 2 % 0-10 Automated blood basophils/100 leukocytes 0 % 0-10 Blood neutrophils automated count (number/volume) 4.0 10*3 1.8-7.8 Blood lymphocytes automated count (number/volume) 2.2 10*3 1.0-4.0 Blood monocytes automated count (number/volume) 0.5 10*3 0.0-1.0 Automated eosinophil count 0.1 10*3/uL 0.0-0.3 Automated blood basophil count (count/volume) 0.0 10*3/uL 0.0-0.1 Comprehensive metabolic panel - 10/22/16 15:52 Serum or plasma sodium measurement (moles/volume) 139 mmol/L 135-145 Serum or plasma potassium measurement (moles/volume) 4.1 mmol/L 3.6-5.0 Serum or plasma chloride measurement (moles/volume) 106 mmol/L 98-107 Carbon dioxide 24 mmol/L 21-32 Serum or plasma anion gap determination (moles/volume) 9 mmol/L 5-14 Serum or plasma urea nitrogen measurement (mass/volume) 7 mg/dL 7-18 Serum or plasma creatinine measurement (mass/volume) 0.68 mg/dL 0.60-1.30 Serum or plasma urea nitrogen/creatinine mass ratio 10 NRG Serum or plasma creatinine measurement with calculation of estimated glomerular filtration rate > NRG Serum or plasma glucose measurement (mass/volume) 98 mg/dL 70-105 Serum or plasma calcium measurement (mass/volume) 9.1 mg/dL 8.5-10.1 Serum or plasma total bilirubin measurement (mass/volume) 0.8 mg/dL 0.1-1.0 Serum or plasma alkaline phosphatase measurement (enzymatic activity/volume) 48 U/L 40-136 Serum or plasma aspartate aminotransferase measurement (enzymatic activity/ volume) 14 U/L 5-34 Serum or plasma alanine aminotransferase measurement (enzymatic activity/volume ) 18 U/L 0-55 Serum or plasma protein measurement (mass/volume) 6.2 g/dL 6.4-8.2 Serum or plasma albumin measurement (mass/volume) 4.1 g/dL 3.2-4.5 Serum or plasma lithium measurement (moles/volume) - 10/22/16 15:52 BNP level 17.5 pg/mL <100.0 THYROID STIMULATING HORMONE - 10/22/16 15:52 THYROID STIMULATING HORMONE 0.32 u[iU]/mL 0.35-4.94 Complete urinalysis with reflex to culture - 10/22/16 16:12 Urine color determination YELLOW NRG Urine clarity determination VERY CLOUDY NRG Urine pH measurement by test strip 6 5-9 Specific gravity of urine by test strip 1.020 1.016- 1.022 Urine protein assay by test strip, semi-quantitative 2+ NEGATIVE Urine glucose detection by automated test strip NEGATIVE NEGATIVE Erythrocytes detection in urine sediment by light microscopy 1+ NEGATIVE Urine ketones detection by automated test strip 1+ NEGATIVE Urine nitrite detection by test strip NEGATIVE NEGATIVE Urine total bilirubin detection by test strip 1+ NEGATIVE Urine urobilinogen measurement by automated test strip (mass/volume) 1 mg/dL NORMAL Urine leukocyte esterase detection by dipstick 3+ NEGATIVE Automated urine sediment erythrocyte count by microscopy (number/high power field) [HPF] NRG Automated urine sediment leukocyte count by microscopy (number/high power field ) [HPF] NRG Bacteria detection in urine sediment by light microscopy LARGE NRG Squamous epithelial cells detection in urine sediment by light microscopy 25-50 NRG Crystals detection in urine sediment by light microscopy NONE NRG Casts detection in urine sediment by light microscopy NONE NRG Mucus detection in urine sediment by light microscopy LARGE NRG Complete urinalysis with reflex to culture YES NRG Bacterial urine culture - 10/22/16 16:12 URINE CULTURE RESULTS <10,000/ML NRG Methicillin resistant Staphylococcus aureus (MRSA) screening culture - 13:24 Methicillin resistant Staphylococcus aureus (MRSA) screening culture NEG NRG Complete blood count (CBC) with automated white blood cell (WBC) differential - 05/19/17 13:25 Blood leukocytes automated count (number/volume) 8.2 10*3/uL 4.3-11.0 Blood erythrocytes automated count (number/volume) 4.57 10*6/uL 4.35-5.85 Venous blood hemoglobin measurement (mass/volume) 14.0 g/dL 11.5-16.0 Blood hematocrit (volume fraction) 41 % 35-52 Automated erythrocyte mean corpuscular volume 90 [foz_us] 80-99 Automated erythrocyte mean corpuscular hemoglobin (mass per erythrocyte) 31 pg 25-34 Automated erythrocyte mean corpuscular hemoglobin concentration measurement ( mass/volume) 34 g/dL 32-36 Automated erythrocyte distribution width ratio 12.7 % 10.0-14.5 Automated blood platelet count (count/volume) 344 10*3/uL 130-400 Automated blood platelet mean volume measurement 10.7 [foz_us] 7.4-10.4 Automated blood neutrophils/100 leukocytes 60 % 42-75 Automated blood lymphocytes/100 leukocytes 30 % 12-44 Blood monocytes/100 leukocytes 8 % 0-12 Automated blood eosinophils/100 leukocytes 2 % 0-10 Automated blood basophils/100 leukocytes 0 % 0-10 Blood neutrophils automated count (number/volume) 4.9 10*3 1.8-7.8 Blood lymphocytes automated count (number/volume) 2.5 10*3 1.0-4.0 Blood monocytes automated count (number/volume) 0.6 10*3 0.0-1.0 Automated eosinophil count 0.2 10*3/uL 0.0-0.3 Automated blood basophil count (count/volume) 0.0 10*3/uL 0.0-0.1 Blood type T Indirect antibody screen panel - 05/19/17 13:25 ABO+Rh group AP NRG Blood group antibody screen NEGATIVE NRG Urine beta human chorionic gonadotropin (hCG) measurement - 05/27/17 11:33 Urine beta human chorionic gonadotropin (hCG) measurement NEGATIVE NEGATIVE Blood type T Indirect antibody screen panel - 05/27/17 11:45 ABO+Rh group AP NRG Transfusion band number [id number] NRG Blood group antibody screen NEGATIVE NRG Streptococcus pyogenes antigen detection - 09/04/17 18:22 Streptococcus pyogenes antigen detection NEGATIVE NEGATIVE Bacterial throat culture - 09/04/17 18:22 Bacterial throat culture NBS NRG Encounters ACCT No. Visit Date/Time Discharge Status Pt. 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 [facility] ER RASH/THROAT PAIN [id number] 05/27/2017 11:32:00 05/27/2017 20:15:00 DIS Outpatient [facility] DYSFUNCTIONAL UTERINE BLEEDING CHRONIC PELVIC PAIN [id number] 05/19/2017 13:03:00 05/19/2017 13:30:00 DIS Outpatient SANDRA KAPLAN MD [facility] PREOP DYSFUNCTIONAL UTERINE BLEEDING CHRONIC PELVIC PAIN [id number] 03/15/2017 23:06:00 03/15/2017 23:51:00 DIS Emergency DANIELLE LOPEZ MD [facility] ER POSS ALLERGIC RXN [id number] 11/26/2016 13:17:00 11/26/2016 23:59:59 CLS Outpatient RASHARD CHAMBERS MICROFABRICATION ENGINEER MANAGER [facility] RAD HX OF PCOS [id number] 10/22/2016 15:28:00 10/22/2016 16:56:00 DIS Emergency SELVIN BLANTON MICROFABRICATION ENGINEER MANAGER [facility] ER HEADACHE/SWOLLEN CALFS [id number] 09/11/2016 16:34:00 09/11/2016 17:38:00 DIS Emergency SELVIN BLATNON MICROFABRICATION ENGINEER MANAGER [facility] ER GLANDS SWOLLEN/LETHARGIC/ RASH [id number] 08/12/2016 00:13:00 08/12/2016 01:57:00 DIS Emergency JOSS DAMON MD [facility] ER ABD PAIN,OVARY PAIN [id number] 11/17/2015 11:07:00 11/17/2015 23:59:59 CLS Outpatient СВЕТЛАНА DIETZ MD [facility] RAD RIGHT THIGH BRUISING, WEIGHT GAIN,FATIGUE [id number] 07/07/2015 06:04:00 07/07/2015 12:42:00 DIS Outpatient SANDRA KAPLAN MD [facility] CHRONIC PELVIC PAIN [id number] 07/04/2015 05:53:00 07/04/2015 23:59:59 CLS Outpatient SANDRA KAPLAN MD [facility] PREOP CHRONIC PELVIC PAIN [id number] 06/18/2015 09:50:00 06/18/2015 23:59:59 CLS Outpatient SANDRA KAPLAN MD [facility] CHRONIC PELVIC PAIN/PELVIC MASS [id number] 06/17/2015 08:09:00 06/17/2015 23:59:59 CLS Outpatient SANDRA KAPLAN MD [facility] PREOP CHRONIC PELVIC PAIN/PELVIC MASS [id number] 05/22/2015 14:37:00 05/22/2015 16:50:00 DIS Emergency SAMEER ESCALONA [facility] ER VAG BLEEDING [id number] 04/14/2015 21:09:00 04/17/2015 12:20:00 DIS Inpatient SANDRA KAPLAN MD [facility] LDRP LABOR [id number] 09/11/2014 14:39:00 09/11/2014 23:59:59 CLS Outpatient СВЕТЛАНА DIETZ MD [facility] RAD THREATENED MISCARRIAGE [id number] 09/04/2014 18:54:00 09/04/2014 23:00:00 DIS Emergency SAMEER ESCALONA [facility] ER PASSING MUCUS AT 7 WEEKS [id number] 08/29/2014 20:09:00 08/29/2014 22:41:00 DIS Emergency DANIELLE LOPEZ MD [facility] ER ABD CRAMPING, VAGINAL BLEEDING AT 5 WEEKS [id number] 03/25/2014 20:16:00 03/25/2014 20:34:00 DIS Emergency SELVIN BLANTON APRN [facility] ER R EAR PAIN,DRAINAGE, SWELLING [id number] 05/01/2013 10:38:00 05/01/2013 23:59:59 CLS Outpatient СВЕТЛАНА DIETZ MD [facility] RAD PAINFUL LUMP IN RT BREAST -MID OUTER AREA [id number] 02/08/2013 09:49:00 02/08/2013 23:59:59 CLS Outpatient EUSEBIO GARRISON, SANDRA Loya [facility] PREOP DUB [id number] 01/09/2016 12:57:00 Document Registration [id number] 12/14/2014 23:26:00 Document Registration [id number] 12/05/2012 12:28:00 Document Registration [id number] 09/30/2012 13:46:00 Document Registration [id number] 08/16/2012 17:01:00 Document Registration [id number] 12/03/2011 16:28:00 Document Registration [id number] 12/02/2011 14:10:00 Document Registration [id number] 11/03/2011 15:06:00 Document Registration [id number] 10/12/2011 14:54:00 Document Registration [id number] 10/09/2011 23:48:00 Document Registration [id number] 10/08/2011 21:35:00 Document Registration [id number] 12/29/2009 08:13:00 Document Registration [id number] 12/26/2009 11:29:00 Document Registration
[2017-10-16] MEDS ORDERED: CODE118S2 PO (21:07)
--- NOTE | 2017-10-16 21:07 | ED Cough/URI ---
General Stated Complaint: COUGH Source: patient Exam Limitations: no limitations History of Present Illness Time seen by provider: 21:05 Initial Comments To ER with a three-day history of a nonproductive cough and general malaise. No fevers. Severity/Quality: moderate Associated Symptoms: cough Allergies and Home Medications Allergies Coded Allergies: Penicillins (Verified Allergy, Unknown, HIVES, 05/19/17) amoxicillin (Verified Allergy, Unknown, HIVES, 05/19/17) cefaclor (Unverified Allergy, Unknown, 04/14/15) clavulanic acid (Verified Allergy, Unknown, HIVES, 05/19/17) levofloxacin (Verified Allergy, Unknown, 08/12/16) Home Medications Docusate Sodium 100 Mg Capsule, 100 MG PO BID, #60 Prescribed by: SANDRA MARTINEZ on 05/27/171941 Famotidine 20 Mg Tablet, 20 MG PO PRN, (Reported) Fluoxetine HCl 20 Mg Capsule, 20 MG PO DAILY, (Reported) Ibuprofen 800 Mg Tablet, 800 MG PO Q6H, #60 Prescribed by: SANDRA MARTINEZ on 05/27/171941 Norgestimate-Ethinyl Estradiol 1 Each Tablet, 1 EACH PO DAILY for 90 Days, #90 Ref 4 Prescribed by: SANDRA MARTINEZ on 05/27/171941 Oxycodone HCl/Acetaminophen 1 Each Tablet, 1-2 TAB PO Q4HR PRN for PAIN- MODERATE TO SEVERE, #60 Prescribed by: SANDRA MARTINEZ on 05/27/171941 Prednisone 20 Mg Tab, 80 MG PO DAILY for 12 Days, #30 Ref 0 4 tablets for 3 days 3 tablets for 3 days 2 tablets for 3 days 1 tablet for 3 days Prescribed by: NICOLLE LINN on 09/09/17 0059 Promethazine HCl/Codeine 118 Ml Syrup, 5 ML PO Q6H PRN for COUGH, #60 Prescribed by: SELVIN BLANTON on 10/16/172106 Tramadol HCl 50 Mg Tablet, 50 MG PO Q6H PRN for PAIN-MILD TO MODERATE, (Reported ) Constitutional: see HPI, No chills, No fever EENTM: see HPI Respiratory: see HPI, cough, No short of breath Cardiovascular: no symptoms reported Genitourinary: no symptoms reported Musculoskeletal: no symptoms reported Skin: no symptoms reported Psychiatric/Neurological: No Symptoms Reported Past Ldbwtrb-Ukdmfw-Nbegoa Hx Patient Social History 2nd Hand Smoke Exposure: No Recent Foreign Travel: No Contact w/Someone Who Travel: No Recent Hopitalizations: No Immunizations Up To Date Tetanus Booster (TDap): Unknown PED Vaccines UTD: Yes Date of Influenza Vaccine: Sep 12, 2014 Seasonal Allergies Seasonal Allergies: No Surgeries History of Surgeries: Yes (urethral stretch, d&c X2, hysteroscopy) Surgeries: Adenoidectomy, Section, Hysterectomy, Orthopedic, Tonsillectomy Respiratory History of Respiratory Disorde: No Cardiovascular History of Cardiac Disorders: No Neurological History of Neurological Disord: No Reproductive System Hx Reproductive Disorders: Yes (uterine fibroids, polp, endometroisis, ov cyst) Sexually Transmitted Disease: No HIV/AIDS: No Female Reproductive Disorders: Endometriosis, Ovarian Cyst, Polycystic 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 Dis 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 Genitourinary History of Genitourinary Disor: Yes (urethral stricture) Gastrointestinal History of Gastrointestinal Di: No Musculoskeletal History of Musculoskeletal Dis: No Endocrine History of Endocrine Disorders: No HEENT Loss of Vision: Denies Hearing Impairment: Denies Cancer History of Cancer: No Psychosocial History of Psychiatric Problem: Yes Behavioral Health Disorders: Depression Integumentary History of Skin or Integumenta: Yes Skin/Integumentary Disorders: Psoriasis Blood Transfusions History of Blood Disorders: No Adverse Reaction to a Blood Tr: No Family Medical History Significant Family History: No Pertinent Family Hx Family Medial History: Arthritis 19 FATHER, Onset:40's - 50 19 MOTHER, Onset:30's - 40 Asthma G8 BROTHER, Onset:Infancy Completed stroke 19 MOTHER, Onset:40's - 50 (4 strokes) Diabetes mellitus 19 MOTHER, Onset:40's - 50 Headache disorder 19 MOTHER, Onset:30's - 40 (migraines) Hypercholesterolemia 19 MOTHER, Onset:40's - 50 Hypertension 19 FATHER, Onset:40's - 50 19 MOTHER, Onset:30's - 40 G8 BROTHER, Onset:Adolescence Severe allergy 19 MOTHER, Onset:Childhood (PCN, EES) G8 BROTHER, Onset:Childhood (PCN) No Family History of: AIDS Abdominal aortic aneurysm [place]'s disease Alcoholism Alzheimer's disease Aphasia Cancer of mouth Cardiovascular disease Cataracts Colon cancer Congenital disease Congenital heart disease Coronary thrombosis Cystic fibrosis Deafness or hearing loss Dementia Drug abuse Dysphasia Fibrocystic disease of breast Gastroenteritis Glaucoma Infertility Kidney disease Myocardial infarction Neoplasm Not obtainable due to adoption Osteoporosis Parkinson's disease Prostate cancer Psychosocial problem Respiratory disorder Seizure disorder Thyroid disease Tuberculosis Visual disorder Physical Exam Vital Signs Vital Sign - Last 12Hours 10/16/17 21:05 Temp 97.1 Pulse 88 Resp 18 B/P (MAP) 134/78 (96) Pulse Ox 97 O2 Delivery Room Air Capillary Refill : General Appearance: WD/WN, no apparent distress Eyes: Bilateral Eye Normal Inspection, Bilateral Eye PERRL, Bilateral Eye EOMI HEENT: PERRL/EOMI, normal ENT inspection, TMs normal, pharynx normal Neck: non-tender, full range of motion Respiratory: normal breath sounds, no respiratory distress, no accessory muscle use Cardiovascular: regular rate, rhythm, no murmur Gastrointestinal: normal bowel sounds, non tender, soft Neurologic/Psychiatric: alert, normal mood/affect, oriented x 3 Skin: normal color, warm/dry Progress/Results/Core Measures Suspected Sepsis SIRS Temperature: Pulse: Respiratory Rate: Blood Pressure / Mean: Results/Orders My Orders Orders - SELVIN BLANTON APRN Chest Pa/Lat (2 View) (10/16/17 21:05) Promethazine/ Codeine Syrup (Phenergan W (10/16/17 21:15) Diphenhydramine Injection (Benadryl Inje (10/16/17 21:45) Medications Given in ED Current Medications Medications Dose Ordered Sig/Taras Route Start Time Stop Time Status Last Admin Dose Admin Promethazine HCl/ Codeine 5 ml ONCE ONCE PO 10/16/17 21:15 10/16/17 21:16 DC 10/16/17 21:18 5 ML Vital Signs/I&O Vital Sign - Last 12Hours 10/16/17 21:05 Temp 97.1 Pulse 88 Resp 18 B/P (MAP) 134/78 (96) Pulse Ox 97 O2 Delivery Room Air Capillary Refill : Departure Communication (Admissions) Progress Notes 2147- patient reports diffuse itching there is no hives or rash. I will discontinue the Phenergan with codeine prescription and she has been given 5 mg of intramuscular Benadryl. Impression Impression: Primary Impression: Viral syndrome Disposition: 01 HOME, SELF-CARE Condition: Stable Departure-Patient Inst. Decision time for Depature: 21:06 Referrals: RASHARD CHAMBERS APRN (PCP/Family) Primary Care Physician Patient Instructions: VIRAL SYNDROME Add. Discharge Instructions: 1. SELVIN BLANTON APRN Oct 16, 2017 21:07
[2017-10-16] MEDS ORDERED: PROMETHAZINE/ CODEINE SYRUP 5 ML UDC PO ONE (21:15)
--- NOTE | 2017-10-16 21:24 | Diagnostic Imaging Report ---
EXAMINATION: PA and lateral chest. INDICATION: Cough and body aches. FINDINGS: Lungs appear clear without focal infiltrate or evidence of an effusion. There is no pneumothorax. Heart size and mediastinal contours are appropriate. Pulmonary vascularity appears within normal limits. No acute osseous abnormality is demonstrated. IMPRESSION: No radiographic evidence of an acute cardiopulmonary process. Dictated by: Dictated on workstation # [id number]
[2017-10-16] MEDS ORDERED: diphenhydrAMINE 50 MG/ML INJ (BENADRYL) ONE (21:42)
[2017-10-16] MEDS ORDERED: diphenhydrAMINE 50 MG/ML INJ (BENADRYL) IM ONE (21:45)
[2017-10-16 21:56] VITALS: BP 131/82
== END 2017-10-16 21:56 | disposition home or self-care (01) ==
LOC: EDUNIT# 20:43 → ER 20:45
DX: B34.9 Viral infection, unspecified (principal); F32.9 Major depressive disorder, single episode, unspecified; Z82.49 Family history of ischemic heart disease and other diseases of the circulatory system; Z87.59 Personal history of other complications of pregnancy, childbirth and the puerperium; Z90.710 Acquired absence of both cervix and uterus; Z90.89 Acquired absence of other organs; Z86.010 Personal history of colon polyps; Z87.448 Personal history of other diseases of urinary system; Z97.5 Presence of (intrauterine) contraceptive device
CPT/HCPCS: 71046; 96372; 99284

== ENCOUNTER 2017-11-16 09:51 | Emergency (ER) | payer SELFPAY ==
[~2017-11-16] VITALS: Ht 160 cm; Wt 90.7 kg
[~2017-11-16 09:51] MED LIST changes: +CODE118S2 PO
[2017-11-16] MEDS ORDERED: NORG1TAB30 (10:07)
--- NOTE | 2017-11-16 10:07 | ED Cough/URI ---
General Stated Complaint: FLU LIKE SYMPTOMS Source: patient Exam Limitations: no limitations History of Present Illness Date Seen by Provider: Nov 16, 2017 Time Seen by Provider: 09:59 Initial Comments Patient presents to ER by private conveyance with a chief complaint of 4-5 days of progressively worsening cough, runny nose, body aches, malaise, chills and now today nausea without vomiting and nonbloody diarrhea. Patient has no history of asthma, COPD or smoking. She says her cough is nonproductive presently. No one in her family has influenza presently. She had an appointment yesterday with her primary care physician but she said she slept in and missed it. Allergies and Home Medications Allergies Coded Allergies: Penicillins (Verified Allergy, Unknown, HIVES, 05/19/17) amoxicillin (Verified Allergy, Unknown, HIVES, 05/19/17) cefaclor (Unverified Allergy, Unknown, 04/14/15) clavulanic acid (Verified Allergy, Unknown, HIVES, 05/19/17) levofloxacin (Verified Allergy, Unknown, 08/12/16) oseltamivir (Verified Allergy, Unknown, 11/16/17) Uncoded Allergies: PROMETHAZINE WITH CODEINE (Allergy, Unknown, 10/17/17) Home Medications Norgestimate-Ethinyl Estradiol 1 Each Tablet, (Reported) Constitutional: chills, No diaphoresis, fever, malaise EENTM: nose congestion, No ear pain, No eye pain, No hoarseness, No mouth pain , No nose pain Respiratory: cough, No phlegm, No short of breath, No wheezing Gastrointestinal: No abdominal pain, No constipation, diarrhea, nausea, No vomiting Genitourinary: No discharge, No dysuria Past Apqaeqd-Yopdbi-Rybrhh Hx Patient Social History Alcohol Use: Denies Use Recreational Drug Use: No Smoking Status: Never a Smoker 2nd Hand Smoke Exposure: No Recent Foreign Travel: No Contact w/Someone Who Travel: No Recent Hopitalizations: No Immunizations Up To Date Tetanus Booster (TDap): Unknown PED Vaccines UTD: Yes Date of Influenza Vaccine: Sep 12, 2014 Seasonal Allergies Seasonal Allergies: No Surgeries History of Surgeries: Yes (urethral stretch, d&c X2, hysteroscopy) Surgeries: Adenoidectomy, Section, Hysterectomy, Orthopedic, Tonsillectomy Respiratory History of Respiratory Disorde: No Cardiovascular History of Cardiac Disorders: No Neurological History of Neurological Disord: No Reproductive System Hx Reproductive Disorders: Yes (uterine fibroids, polp, endometroisis, ov cyst) Sexually Transmitted Disease: No HIV/AIDS: No Female Reproductive Disorders: Endometriosis, Ovarian Cyst, Polycystic Ovarian Dis 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 Genitourinary History of Genitourinary Disor: Yes (urethral stricture) Gastrointestinal History of Gastrointestinal Di: No Musculoskeletal History of Musculoskeletal Dis: No Endocrine History of Endocrine Disorders: No HEENT Loss of Vision: Denies Hearing Impairment: Denies Cancer History of Cancer: No Psychosocial History of Psychiatric Problem: Yes Behavioral Health Disorders: Depression Integumentary History of Skin or Integumenta: Yes Skin/Integumentary Disorders: Psoriasis Blood Transfusions History of Blood Disorders: No Adverse Reaction to a Blood Tr: No Family Medical History Significant Family History: No Pertinent Family Hx Family Medial History: Arthritis 19 FATHER, Onset:40's - 50 19 MOTHER, Onset:30's - 40 Asthma G8 BROTHER, Onset:Infancy Completed stroke 19 MOTHER, Onset:40's - 50 (4 strokes) Diabetes mellitus 19 MOTHER, Onset:40's - 50 Headache disorder 19 MOTHER, Onset:30's - 40 (migraines) Hypercholesterolemia 19 MOTHER, Onset:40's - 50 Hypertension 19 FATHER, Onset:40's - 50 19 MOTHER, Onset:30's - 40 G8 BROTHER, Onset:Adolescence Severe allergy 19 MOTHER, Onset:Childhood (PCN, EES) G8 BROTHER, Onset:Childhood (PCN) No Family History of: AIDS Abdominal aortic aneurysm [place]'s disease Alcoholism Alzheimer's disease Aphasia Cancer of mouth Cardiovascular disease Cataracts Colon cancer Congenital disease Congenital heart disease Coronary thrombosis Cystic fibrosis Deafness or hearing loss Dementia Drug abuse Dysphasia Fibrocystic disease of breast Gastroenteritis Glaucoma Infertility Kidney disease Myocardial infarction Neoplasm Not obtainable due to adoption Osteoporosis Parkinson's disease Prostate cancer Psychosocial problem Respiratory disorder Seizure disorder Thyroid disease Tuberculosis Visual disorder Physical Exam Vital Signs Vital Signs - First Documented 11/16/17 09:56 Temp 99.4 Pulse 3 Resp 18 B/P (MAP) 144/65 (91) Pulse Ox 98 O2 Delivery Room Air Capillary Refill : General Appearance: WD/WN, no apparent distress Eyes: Bilateral Eye Normal Inspection, Bilateral Eye PERRL, Bilateral Eye EOMI HEENT: PERRL/EOMI, normal ENT inspection, TMs normal, pharynx normal, pharyngeal erythema Neck: non-tender, full range of motion, supple, normal inspection Respiratory: chest non-tender, lungs clear, normal breath sounds, no respiratory distress, no accessory muscle use Cardiovascular: normal peripheral pulses, regular rate, rhythm Neurologic/Psychiatric: alert, oriented x 3 Progress/Results/Core Measures Suspected Sepsis SIRS Temperature: Pulse: Respiratory Rate: Blood Pressure / Mean: Results/Orders Micro Results Microbiology 11/16/17 Influenza Types A,B Antigen (KAVEH) - Final, Complete My Orders Orders - NICOLLE LINN Ondansetron Oral Dissolve Tab (Zofran (11/16/17 10:15) Influenza A And B Antigens (11/16/17 10:01) Medications Given in ED Current Medications Medications Dose Ordered Sig/Taras Route Start Time Stop Time Status Last Admin Dose Admin Ondansetron HCl 4 mg ONCE ONCE PO 11/16/17 10:15 11/16/17 10:16 DC 11/16/17 10:13 4 MG Vital Signs/I&O Vital Sign - Last 12Hours 11/16/17 09:56 Temp 99.4 Pulse 3 Resp 18 B/P (MAP) 144/65 (91) Pulse Ox 98 O2 Delivery Room Air Capillary Refill : Progress Note : Time: 10:06 Progress Note Viral syndrome; influenza? Departure Impression Impression: Primary Impression: Upper respiratory infection Qualified Codes: J06.9 - Acute upper respiratory infection, unspecified Disposition: 01 HOME, SELF-CARE Condition: Stable Departure-Patient Inst. Decision time for Depature: 10:52 Referrals: [facility] [place] ([place]P) Primary Care Physician RASHARD CHAMBERS APRN (Family) Primary Care Physician Patient Instructions: Viral Upper Respiratory Infection, Adult (DC) Add. Discharge Instructions: Drink plenty of fluids and get some rest, use sports drinks such as Powerade or Gatorade. If you're unable to keep up with your drinking and then you may use Imodium 2 tablets followed by one tablet every 4 hours as needed. Use Tylenol 1000 g every 8 hours and ibuprofen 800 mg every 8 hours as needed. Copy Copies To 1: BARRETT CHEN TITUS J Nov 16, 2017 10:07
[2017-11-16] MEDS ORDERED: ONDANSETRON 4 MG (ZOFRAN) ORAL DISSOLVE TAB PO ONE (10:15)
[2017-11-16 11:03] VITALS: BP 144/65
--- OUTSIDE RECORDS SUMMARY | 2017-11-16 11:53 | XMS REPORT | Continuity of Care Document ---
Author Author [facility] Organization [facility] Address Unknown Phone Unavailable Allergies Active Description Code Type Severity Reaction Onset Reported/Identified Relationship to Patient Clinical Status Yes cefaclor [id number] Drug Allergy Unknown N/A 04/14/2015 Yes levofloxacin [id number] Drug Allergy Unknown N/A 08/12/2016 Yes amoxicillin [id number] Drug Allergy Unknown HIVES 05/19/2017 Yes clavulanic acid [id number] Drug Allergy Unknown HIVES 05/19/2017 Yes Penicillins [id number] Drug Allergy Unknown HIVES 05/19/2017 Yes PROMETHAZINE WITH CODEINE PROMETHAZINE WITH CODEINE Unknown N/A 2017 Medications There is no data. Problems Date [...] 09/11/2014 Ot E000.8 09/11/2014 Ot E928.9 09/11/2014 EUSEBIO GARRISON, SANDRA Loya Ot V72.84 09/11/2014 J LUIS GARRISON, СВЕТЛАНА Gold Ot 611.71 09/11/2014 J LUIS GARRISON, СВЕТЛАНА Gold Ot 611.72 10/01/2014 СВЕТЛАНА DIETZ MD [...] 660.11 BONY PELV OBSTRUCT-DELIV 04/17/2015 SANDRA KAPLAN MD, Ot V06.1 [id number], COMBINED [ 04/17/2015 SANDRA KAPLAN MD Ot [...] 06/24/2015 SANDRA KAPLAN MD Ot 626.8 06/30/2015 EUSEBIO GARRISON, SANDRA G Ot 285.9 06/30/2015 EUSEBIO GARRISON, SANDRA Loya [...] DIS OVA/ADNX NEC 07/07/2015 EUSEBIO GARRISON, SANDRA G Ot V74.8 SCREEN-BACTERIAL DIS NEC 11/17/2015 Ot [...] Loya Ot V72.63 11/17/2015 EUSEBIO GARRISON, SANDRA oLya Ot V74.8 11/17/2015 EUSEBIOSANDRA MONTERROSO MD Ot 625.8 11/17/2015 SANDRA KAPLAN MD Ot 626.8 11/17/2015 SANDRA KAPLAN MD Ot 625.9 11/17/2015 SANDRA KAPLAN MD Ot V72.84 12/03/2015 J LUIS GARRISON, СВЕТЛАНА Gold Ot R53.83 12/03/2015 J LUIS GARRISON, СВЕТЛАНА Gold Ot R63.5 12/03/2015 J LUIS GARRISON, СВЕТЛАНА Gold Ot S70.11XA 12/03/2015 J LUIS GARRISON, СВЕТЛАНА Gold Ot X58.XXXA 12/03/2015 J LUIS GARRISON, СВЕТЛАНА Gold Ot Y99.8 2016 Ot S99.922A 2016 [...] GARRISON, СВЕТЛАНА Gold Ot 611.71 MASTODYNIA 08/12/2016 J LUIS GARRISON, СВЕТЛАНА Gold Ot 611.72 LUMP OR MASS IN BREAST [...] СВЕТЛАНА Gold Ot R53.83 OTHER FATIGUE 08/12/2016 СВЕТЛАНА DIETZ [...] URINARY TRACT INFECTION, SITE NOT SPECIF 08/12/2016 NELSON GARRISON, JOSS Nj Ot R10.32 LEFT LOWER QUADRANT PAIN 08/12/2016 NELSON GARRISON, JOSS Nj Ot Z97.5 PRESENCE OF (INTRAUTERINE) CONTRACEPTIVE 08/13/2016 NELSON GARRISON, JOSS Nj Ot K59.00 CONSTIPATION, UNSPECIFIED 08/13/2016 JOSS DAMON MD Ot M54.5 LOW BACK PAIN 08/13/2016 JOSS DAMON MD Ot N39.0 URINARY TRACT INFECTION, SITE NOT SPECIF 08/13/2016 JOSS DAMON MD Ot R10.32 LEFT LOWER QUADRANT PAIN 08/13/2016 JOSS DAMON MD Ot Z97.5 PRESENCE OF (INTRAUTERINE) CONTRACEPTIVE 09/11/2016 SELVIN BLANTON GEOLOGICAL E LOGGER Ot B34.9 VIRAL INFECTION, UNSPECIFIED 09/11/2016 SELVIN BLANTON APRN Ot R59.0 LOCALIZED ENLARGED LYMPH NODES 09/13/2016 SELVIN BLANTON APRN Ot B34.9 VIRAL INFECTION, UNSPECIFIED 09/13/2016 SELVIN BLANTON GEOLOGICAL E LOGGER Ot R59.0 LOCALIZED ENLARGED LYMPH NODES 10/22/2016 SELVIN BLANTON APRN Ot N39.0 URINARY TRACT INFECTION, SITE NOT SPECIF 10/22/2016 SELVIN BLANTON APRN Ot R51 HEADACHE 11/29/2016 RASHARD CHAMBERS GEOLOGICAL E LOGGER Ot Z87.42 PERSONAL HISTORY OF OTH DISEASES OF THE 11/29/2016 RASHARD CHAMBERS GEOLOGICAL E LOGGER Ot Z87.42 PERSONAL HISTORY OF OTH DISEASES OF THE 12/13/2016 RASHARD CHAMBERS GEOLOGICAL E LOGGER Ot Z87.42 PERSONAL HISTORY OF OTH DISEASES OF THE 03/15/2017 DANIELLE LOPEZ MD, Ot L27.0 GEN SKIN ERUPTION DUE TO DRUGS AND MEDS 03/15/2017 DANIELLE LOPEZ MD, Ot R21 RASH AND OTHER NONSPECIFIC SKIN ERUPTION 03/15/2017 DANIELLE LOPEZ MD, Ot Z88.1 ALLERGY STATUS TO OTHER ANTIBIOTIC AGENT 03/17/2017 DANIELLE LOPEZ MD Ot L27.0 GEN SKIN ERUPTION DUE TO DRUGS AND MEDS 03/17/2017 DANIELLE LOPEZ MD, Ot R21 RASH AND OTHER NONSPECIFIC SKIN ERUPTION 03/17/2017 DANIELLE LOPEZ MD, Ot Z88.1 ALLERGY STATUS TO OTHER ANTIBIOTIC AGENT 05/19/2017 SANDRA KAPLAN MD, Ot D64.9 ANEMIA, UNSPECIFIED 05/19/2017 SANDRA KAPLAN MD Ot N92.1 EXCESSIVE AND FREQUENT MENSTRUATION WITH [...] GASTRO-ESOPHAGEAL REFLUX DISEASE WITHOUT 05/27/2017 SANDRA KAPLAN MD, Ot N73.6 FEMALE PELVIC [...] 05/27/2017 SANDRA KAPLAN MD, Ot 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448 PERSONAL HISTORY OF OTHER DISEASES OF UR 10/16/2017 SELVIN BLANTON APRN Ot Z87.59 PERSONAL HISTORY OF COMP OF PREG, CHLDBR 10/16/2017 SELVIN BLANTON APRN Ot Z90.710 ACQUIRED ABSENCE OF BOTH CERVIX AND UTER 10/16/2017 SELVIN BLANTON APRN Ot Z90.89 ACQUIRED ABSENCE OF OTHER ORGANS 10/16/2017 SELVIN BLANTON APRN Ot Z97.5 PRESENCE OF (INTRAUTERINE) CONTRACEPTIVE Procedures [...] ABO+Rh group AP NRG Transfusion band number [id number] NRG Blood group antibody screen NEGATIVE NRG Streptococcus pyogenes antigen detection - 09/04/17 18:22 Streptococcus pyogenes antigen detection NEGATIVE NEGATIVE Bacterial throat culture - 09/04/17 18:22 Bacterial throat culture NBS NRG Influenza virus A and B antigen detection - 11/16/17 09:59 FLU RESULT NEGATIVE FOR INFLUENZA A AND B ANTIGENS BY IA NRG Encounters ACCT No. Visit Date/Time Discharge Status Pt. Type Provider Facility Loc./Unit Complaint [id number] 10/16/2017 20:45:00 10/16/2017 21:56:00 DIS Emergency SELVIN BLANTON APRN [facility] ER COUGH [id number] 09/08/2017 22:42:00 09/09/2017 01:19:00 DIS Emergency NICOLLE LINN MD [facility] ER RASH [id number] 09/04/2017 18:07:00 09/04/2017 19:06:00 DIS Emergency SELVIN BLANTON APRN [facility] ER RASH/THROAT PAIN [id number] 05/27/2017 11:32:00 05/27/2017 20:15:00 DIS Outpatient SANDRA KAPLAN MD [facility] DYSFUNCTIONAL UTERINE BLEEDING CHRONIC PELVIC PAIN [id number] 05/19/2017 13:03:00 05/19/2017 13:30:00 DIS Outpatient SANDRA KAPLAN MD [facility] PREOP DYSFUNCTIONAL UTERINE BLEEDING CHRONIC PELVIC PAIN [id number] 03/15/2017 23:06:00 03/15/2017 23:51:00 DIS Emergency DANIELLE LOPEZ MD [facility] ER POSS ALLERGIC RXN [id number] 11/26/2016 13:17:00 11/26/2016 23:59:59 CLS Outpatient RASHARD CHAMBERS GEOLOGICAL E LOGGER [facility] RAD HX OF PCOS [id number] 10/22/2016 15:28:00 10/22/2016 16:56:00 DIS Emergency SELVIN BLANTON GEOLOGICAL E LOGGER [facility] ER HEADACHE/SWOLLEN CALFS [id number] 09/11/2016 16:34:00 09/11/2016 17:38:00 DIS Emergency SELVIN BLANTON GEOLOGICAL E LOGGER [facility] ER GLANDS SWOLLEN/LETHARGIC/ RASH [id number] 08/12/2016 00:13:00 08/12/2016 01:57:00 DIS Emergency JOSS DAMON MD [facility] ER ABD PAIN,OVARY PAIN [id number] 11/17/2015 11:07:00 11/17/2015 23:59:59 CLS Outpatient СВЕТЛАНА DIETZ MD [facility] RAD RIGHT THIGH BRUISING, WEIGHT GAIN,FATIGUE [id number] 07/07/2015 06:04:00 07/07/2015 12:42:00 DIS Outpatient SANDRA KAPLAN MD [facility] CHRONIC PELVIC PAIN [id number] 07/04/2015 05:53:00 07/04/2015 23:59:59 CLS Outpatient SANDRA KAPLAN MD [facility] PREOP CHRONIC PELVIC PAIN [id number] 06/18/2015 09:50:00 06/18/2015 23:59:59 CLS Outpatient SANDRA KAPLAN MD [facility] CHRONIC PELVIC PAIN/PELVIC MASS [id number] 06/17/2015 08:09:00 06/17/2015 23:59:59 CLS Outpatient SANDRA KAPLAN MD [facility] PREOP CHRONIC PELVIC PAIN/PELVIC MASS [id number] 05/22/2015 14:37:00 05/22/2015 16:50:00 DIS Emergency SAMEER ESCALONA [facility] ER VAG BLEEDING [id number] 04/14/2015 21:09:00 04/17/2015 12:20:00 DIS Inpatient SANDRA KAPLAN MD [facility] LDRP LABOR [id number] 09/11/2014 14:39:00 09/11/2014 23:59:59 CLS Outpatient СВЕТЛАНА DIETZ MD [facility] RAD THREATENED MISCARRIAGE [id number] 09/04/2014 18:54:00 09/04/2014 23:00:00 DIS Emergency SAMEER ESCALONA [facility] ER PASSING MUCUS AT 7 WEEKS [id number] 08/29/2014 20:09:00 08/29/2014 22:41:00 DIS Emergency DANIELLE LOPEZ MD [facility] ER ABD CRAMPING, VAGINAL BLEEDING AT 5 WEEKS [id number] 03/25/2014 20:16:00 03/25/2014 20:34:00 DIS Emergency SELVIN BLANTON APRN [facility] ER R EAR PAIN,DRAINAGE, SWELLING [id number] 05/01/2013 10:38:00 05/01/2013 23:59:59 CLS Outpatient СВЕТЛАНА DIETZ MD [facility] RAD PAINFUL LUMP IN RT BREAST -MID OUTER AREA [id number] 02/08/2013 09:49:00 02/08/2013 23:59:59 CLS Outpatient SANDRA KAPLAN MD [facility] PREOP DUB [id number] 11/16/2017 09:53:00 ACT Emergency NICOLLE LINN MD [facility] ER FLU LIKE SYMPTOMS [id number] 01/09/2016 12:57:00 Document Registration [id number] 12/14/2014 23:26:00 Document Registration [id number] 12/05/2012 12:28:00 Document Registration [id number] 09/30/2012 13:46:00 Document Registration [id number] 08/16/2012 17:01:00 Document Registration [id number] 12/03/2011 16:28:00 Document Registration [id number] 12/02/2011 14:10:00 Document Registration [id number] 11/03/2011 15:06:00 Document Registration [id number] 10/12/2011 14:54:00 Document Registration [id number] 10/09/2011 23:48:00 Document Registration [id number] 10/08/2011 21:35:00 Document Registration [id number] 12/29/2009 08:13:00 Document Registration [id number] 12/26/2009 11:29:00 Document Registration
== END 2017-11-16 11:03 | disposition home or self-care (01) ==
LOC: EDUNIT# 09:51 → ER 09:53
DX: J06.9 Acute upper respiratory infection, unspecified (principal); F32.9 Major depressive disorder, single episode, unspecified; Z82.49 Family history of ischemic heart disease and other diseases of the circulatory system; Z88.1 Allergy status to other antibiotic agents; Z88.0 Allergy status to penicillin; Z88.8 Allergy status to other drugs, medicaments and biological substances; Z88.5 Allergy status to narcotic agent; Z90.89 Acquired absence of other organs; Z90.710 Acquired absence of both cervix and uterus; Z87.59 Personal history of other complications of pregnancy, childbirth and the puerperium; Z87.448 Personal history of other diseases of urinary system; Z97.5 Presence of (intrauterine) contraceptive device
CPT/HCPCS: 87804; 99283

== ENCOUNTER 2019-08-26 15:54 | Emergency (ER) | payer SELFPAY ==
[~2019-08-26] VITALS: Ht 157 cm; Wt 92.7 kg
[~2019-08-26 15:54] MED LIST changes: -CODE118S2 PO; +CODE118S4 PO; +NORG1TAB30; -OXYC-202 PO
[2019-08-26] MEDS ORDERED: PRD20T PO (16:45)
--- NOTE | 2019-08-26 16:45 | ED Cough/URI ---
General Chief Complaint: Respiratory Problems Stated Complaint: SOB Nursing Triage Note: PT PRESENTS TO ED WITH C/O SOB, SORENESS IN CHEST, AND TINGLING IN LIPS. PT REPORTS HAVING A COUGH X 3 WEEKS PRIOR TO SX STARTING. PT AMB TO ROOM 09 AND APPEARS IN NO RESPIRATORY DISTRESS OR WITH LABORED BREATHING. Sepsis Screen: No Definite Risk History of Present Illness Date Seen by Provider: Aug 26, 2019 Time Seen by Provider: 16:30 Initial Comments 24-year-old female presents for a 3 week history of nonproductive cough. She has not seen her primary care provider or used any qvxg-vdu-pxzrrvf medications. No history of asthma or other chronic respiratory conditions. Timing/Duration: intermittent Severity/Quality: dry cough Prior Episodes/Possible Cause: occasional episodes Associated Symptoms: cough Allergies and Home Medications Allergies Coded Allergies: Penicillins (Verified Allergy, Unknown, HIVES, 05/19/17) amoxicillin (Verified Allergy, Unknown, HIVES, 05/19/17) cefaclor (Unverified Allergy, Unknown, 04/14/15) clavulanic acid (Verified Allergy, Unknown, HIVES, 05/19/17) levofloxacin (Verified Allergy, Unknown, 08/12/16) oseltamivir (Verified Allergy, Unknown, 11/16/17) Uncoded Allergies: PROMETHAZINE WITH CODEINE (Allergy, Unknown, 10/17/17) Home Medications Prednisone 20 Mg Tab, 40 MG PO DAILY Prescribed by: YELENA GUTIERREZ on 08/26/19 [id number] Patient Home Medication List Home Medication List Reviewed: Yes Review of Systems Review of Systems Constitutional: no symptoms reported Respiratory: see HPI, cough All Other Systems Reviewed Negative Unless Noted: Yes Past Ssrthnj-Dvsnmt-Ibdkdy Hx Past Med/Social Hx: Reviewed Nursing Past Med/Soc Hx Patient Social History Alcohol Use: Denies Use Recreational Drug Use: No 2nd Hand Smoke Exposure: No Recent Foreign Travel: No Contact w/Someone Who Travel: No Recent Infectious Disease Expo: No Recent Hopitalizations: No Immunizations Up To Date Tetanus Booster (TDap): Unknown PED Vaccines UTD: Yes Date of Influenza Vaccine: Sep 12, 2014 Seasonal Allergies Seasonal Allergies: No Past Medical History Surgeries: Yes (urethral stretch, d&c X2, hysteroscopy) Adenoidectomy, Section, Hysterectomy, Orthopedic, Tonsillectomy Respiratory: No Cardiac: No Neurological: No Reproductive Disorders: Yes (uterine fibroids, polp, endometroisis, ov cyst) Female Reproductive Disorders: Endometriosis, Ovarian Cyst, Polycystic 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 Sexually Transmitted Disease: No HIV/AIDS: No Genitourinary: Yes (urethral stricture) Gastrointestinal: No Musculoskeletal: No Endocrine: No Loss of Vision: Denies Hearing Impairment: Denies Cancer: No Psychosocial: Yes Depression Integumentary: Yes Psoriasis Blood Disorders: No Adverse Reaction/Blood Tranf: No Family Medical History Arthritis 19 FATHER, Onset:40's - 50 19 MOTHER, Onset:30's - 40 Asthma G8 BROTHER, Onset:Infancy Completed stroke 19 MOTHER, Onset:40's - 50 (4 strokes) Diabetes mellitus 19 MOTHER, Onset:40's - 50 Headache disorder 19 MOTHER, Onset: 40 (migraines) Hypercholesterolemia 19 MOTHER, Onset:40 - Hypertension 19 FATHER, Onset:40 - 19 MOTHER, Onset:30's - 40 G8 BROTHER, Onset:Adolescence Severe allergy 19 MOTHER, Onset:Childhood (PCN, EES) G8 BROTHER, Onset:Childhood (PCN) No Family History of: AIDS Abdominal aortic aneurysm Sunman's disease Alcoholism Alzheimer's disease Aphasia Cancer of mouth Cardiovascular disease Cataracts Colon cancer Congenital disease Congenital heart disease Coronary thrombosis Cystic fibrosis Deafness or hearing loss Dementia Drug abuse Dysphasia Fibrocystic disease of breast Gastroenteritis Glaucoma Infertility Kidney disease Myocardial infarction Neoplasm Not obtainable due to adoption Osteoporosis Parkinson's disease Prostate cancer Psychosocial problem Respiratory disorder Seizure disorder Thyroid disease Tuberculosis Visual disorder No Pertinent Family Hx Physical Exam Vital Signs - First Documented 08/26/19 16:11 Temp 37.0 Pulse 86 Resp 20 B/P (MAP) 132/88 (103) Pulse Ox 100 O2 Delivery Room Air Capillary Refill : Less Than 3 Seconds Height: 5'3.00" Weight: 200lbs. 0.0oz. 90.409954nz; 37.00 BMI Method:Stated General Appearance: WD/WN, no apparent distress Eyes: Bilateral Eye Normal Inspection, Bilateral Eye PERRL, Bilateral Eye EOMI HEENT: PERRL/EOMI, normal ENT inspection, TMs normal, pharynx normal, other (no maxillary or frontal sinus tenderness) Neck: non-tender, full range of motion, supple, normal inspection; No lymphadenopathy (R), No lymphadenopathy (L) Respiratory: chest non-tender, lungs clear, normal breath sounds Cardiovascular: normal peripheral pulses, regular rate, rhythm Gastrointestinal: normal bowel sounds, non tender, soft Neurologic/Psychiatric: no motor/sensory deficits, alert, normal mood/affect, oriented x 3 Skin: normal color, warm/dry Progress/Results/Core Measures Suspected Sepsis Recent Fever Within 48 Hours: No Infection Criteria Present: None New/Unexplained Altered Menta: No Sepsis Screen: No Definite Risk SIRS Temperature: Pulse: 86 Respiratory Rate: 20 Blood Pressure 132 /88 Mean: 103 Results/Orders Vital Signs/I&O 08/26/19 08/26/19 16:11 17:04 Temp 37.0 Pulse 86 71 Resp 20 18 B/P (MAP) 132/88 (103) 120/70 Pulse Ox 100 100 O2 Delivery Room Air Room Air Capillary Refill : Less Than 3 Seconds Blood Pressure Mean: 103 POS Departure Impression Primary Impression: Cough Additional Impression: Upper respiratory infection, viral Disposition: 01 HOME, SELF-CARE Condition: Improved Departure-Patient Inst. Decision time for Depature: 16:40 Referrals: [facility] (PCP) Primary Care Physician RASHARD CHAMBERS APRN (Family) Primary Care Physician Patient Instructions: Cough, Adult (DC), Viral Upper Respiratory Infection, Adult (DC) Add. Discharge Instructions: Take the prednisone as prescribed. Use Afrin nasal spray as directed for 3 days. Obtain Robitussin or Delsym intake as indicated. Follow-up with your primary care In 2-3 days if symptoms are not improving or worsen. Return to the emergency department for fever greater than 101 not relieved by Tylenol or ibuprofen, difficulty breathing, or new, urgent health care problems. All discharge instructions reviewed with patient and/or family. Voiced understanding. Scripts Prednisone (Prednisone) 20 Mg Tab 40 MG PO DAILY, #6 TAB 0 Refills Prov: YELENA GUTIERREZ 08/26/19 YELENA GUTIERREZ Aug 26, 2019 16:45 POS
[2019-08-26 17:04] VITALS: BP 120/70
== END 2019-08-26 17:03 | disposition home or self-care (01) ==
LOC: EDUNIT# 15:54 → ER 15:54
DX: J06.9 Acute upper respiratory infection, unspecified (principal); F32.9 Major depressive disorder, single episode, unspecified; I10 Essential (primary) hypertension; Z88.0 Allergy status to penicillin; Z88.1 Allergy status to other antibiotic agents; Z88.8 Allergy status to other drugs, medicaments and biological substances; Z90.89 Acquired absence of other organs; Z90.710 Acquired absence of both cervix and uterus
CPT/HCPCS: 99282

== ENCOUNTER 2019-09-15 14:16 | Emergency (ER) | payer SELFPAY ==
[~2019-09-15] VITALS: Ht 162 cm; Wt 81.0 kg
[~2019-09-15 14:16] MED LIST changes: -TRAM50TA2 PO; +TRM50T PO
[2019-09-15] MEDS ORDERED: ACET-789 PO (14:27)
--- NOTE | 2019-09-15 14:27 | ED General ---
General Stated Complaint: BLEEDING IN EYES Source of Information: Patient Exam Limitations: No Limitations History of Present Illness Date Seen by Provider: Sep 15, 2019 Time Seen by Provider: 14:24 Initial Comments To ER with c/o "bloody eyes" since this morning. Has been coughing a lot x1 month, headache x1 month. no fever no chills. Given rx for doxycycline yesterday. Timing/Duration: 1-2 Days Severity: Moderate Associated Systoms: Cough, Headaches Allergies and Home Medications Allergies Coded Allergies: Penicillins (Verified Allergy, Unknown, HIVES, 05/19/17) amoxicillin (Verified Allergy, Unknown, HIVES, 05/19/17) cefaclor (Unverified Allergy, Unknown, 04/14/15) clavulanic acid (Verified Allergy, Unknown, HIVES, 05/19/17) levofloxacin (Verified Allergy, Unknown, 08/12/16) oseltamivir (Verified Allergy, Unknown, 11/16/17) Uncoded Allergies: PROMETHAZINE WITH CODEINE (Allergy, Unknown, 10/17/17) Home Medications Prednisone 20 Mg Tab, 40 MG PO DAILY Prescribed by: YELENA GUTIERREZ on 08/26/19 [id number] Patient Home Medication List Home Medication List Reviewed: Yes Review of Systems Review of Systems Constitutional: see HPI EENTM: see HPI Respiratory: see HPI, cough Cardiovascular: no symptoms reported Genitourinary: no symptoms reported Musculoskeletal: no symptoms reported Skin: no symptoms reported Psychiatric/Neurological: No Symptoms Reported, Headache Hematologic/Lymphatic: No Symptoms Reported Immunological/Allergic: no symptoms reported Past Sfzbyuo-Nhahjm-Imqsgc Hx Patient Social History 2nd Hand Smoke Exposure: No Recent Foreign Travel: No Contact w/Someone Who Travel: No Recent Hopitalizations: No Immunizations Up To Date Tetanus Booster (TDap): Unknown PED Vaccines UTD: Yes Date of Influenza Vaccine: Sep 12, 2014 Seasonal Allergies Seasonal Allergies: No Past Medical History Surgeries: Yes (urethral stretch, d&c X2, hysteroscopy) Adenoidectomy, Section, Hysterectomy, Orthopedic, Tonsillectomy Respiratory: No Cardiac: No Neurological: No Reproductive Disorders: Yes (uterine fibroids, polp, endometroisis, ov cyst) Female Reproductive Disorders: Endometriosis, Ovarian Cyst, 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 Sexually Transmitted Disease: No HIV/AIDS: No Genitourinary: Yes (urethral stricture) Gastrointestinal: No Musculoskeletal: No Endocrine: No Loss of Vision: Denies Hearing Impairment: Denies Cancer: No Psychosocial: Yes Depression Integumentary: Yes Psoriasis Blood Disorders: No Adverse Reaction/Blood Tranf: No Family Medical History Arthritis 19 FATHER, Onset:40's - 50 19 MOTHER, Onset:30's - 40 Asthma G8 BROTHER, Onset:Infancy Completed stroke 19 MOTHER, Onset:40's - 50 (4 strokes) Diabetes mellitus 19 MOTHER, Onset:40's - 50 Headache disorder 19 MOTHER, Onset:30s 40 (migraines) Hypercholesterolemia 19 MOTHER, Onset:40s - Hypertension 19 FATHER, Onset:40's - 50 19 MOTHER, Onset:30's - 40 G8 BROTHER, Onset:Adolescence Severe allergy 19 MOTHER, Onset:Childhood (PCN, EES) G8 BROTHER, Onset:Childhood (PCN) No Family History of: AIDS Abdominal aortic aneurysm [facility] disease Alcoholism Alzheimer's disease Aphasia Cancer of mouth Cardiovascular disease Cataracts Colon cancer Congenital disease Congenital heart disease Coronary thrombosis Cystic fibrosis Deafness or hearing loss Dementia Drug abuse Dysphasia Fibrocystic disease of breast Gastroenteritis Glaucoma Infertility Kidney disease Myocardial infarction Neoplasm Not obtainable due to adoption Osteoporosis Parkinson's disease Prostate cancer Psychosocial problem Respiratory disorder Seizure disorder Thyroid disease Tuberculosis Visual disorder No Pertinent Family Hx Physical Exam Vital Signs Capillary Refill : Height, Weight, BMI Height: 5'3.00" Weight: 200lbs. 0.0oz. 90.513129mu; 37.00 BMI Method:Stated General Appearance: No Apparent Distress, WD/WN Eyes: Bilateral Eye Normal Inspection, Bilateral Eye PERRL HEENT: PERRL/EOMI, TMs Normal, Other (no hyphema, no scleral injection, there IS however a small 5-7 mm subconjunctival hemorhrage both eyes at the superior midline aspect of each eye. ) Respiratory: Normal Breath Sounds, No Accessory Muscle Use, No Respiratory Distress Cardiovascular: Regular Rate, Rhythm, Normal Peripheral Pulses Gastrointestinal: Non Tender, Soft Extremity: Normal Capillary Refill, Normal Inspection Neurologic/Psychiatric: Alert, Oriented x3 Skin: Normal Color, Warm/Dry Progress/Results/Core Measures Suspected Sepsis SIRS Temperature: Pulse: Respiratory Rate: Blood Pressure / Mean: Results/Orders Vital Signs/I&O Capillary Refill : Departure Impression Primary Impression: Subconjunctival hemorrhage of both eyes Disposition: 01 HOME, SELF-CARE Condition: Stable Departure-Patient Inst. Decision time for Depature: 14:26 Referrals: [facility] (PCP) Primary Care Physician JAM THOMPSON APRN (Family) Primary Care Physician Patient Instructions: Subconjunctival Hemorrhage Add. Discharge Instructions: This will reabsorb over the next 1-2 weeks. Return to ER for any concerns or worsening symptoms. See your doctor tuesday for recheck Scripts Acetaminophen with Codeine (Tylenol with Codeine #3 Tablet) 1 Each Tablet 1 EACH PO Q6H PRN for COUGH for 7 Days, #14 TAB Prov: SELVIN BLANTON APRN 09/15/19 SELVIN BLANTON APRN Sep 15, 2019 14:27 POS
[2019-09-15 14:33] VITALS: BP 120/80
--- OUTSIDE RECORDS SUMMARY | 2019-10-11 12:24 | XMS REPORT | Continuity of Care Document ---
Author Organization Unknown Address Unknown Phone Unavailable Allergies Active Description Code Type Severity Reaction Onset Reported/Identified Relationship to Patient Clinical Status Yes cefaclor [id number] Drug Allergy Unknown N/A 04/14/2015 Yes levofloxacin [id number] Drug Allergy Unknown N/A 08/12/2016 Yes amoxicillin [id number] Drug Aller gy Unknown HIVES 05/19/2017 Yes clavulanic acid [id number] D rug Allergy Unknown HIVES 05/19/2017 Yes Penicillins [id number] Drug Aller gy Unknown HIVES 05/19/2017 Yes PROMETHAZINE WITH CODEINE PROM ETHAZINE WITH CODEINE Unknown N/A 8 Yes oseltamivir [id number] Drug Aller gy Unknown N/A 11/16/2017 Medications There is no data. Problems Date Dx Coded Attending Type Code Diagnosis Diagnosed By 10/09/2011 Ot 625.9 FEM GENITAL SYMPTOMS NOS 10/09/2011 Ot 648.93 OTH CURR COND- ANTEPARTUM 10/10/2011 Ot 640.03 THR EATEN ABORT- ANTEPART 09/30/2012 Ot 276.50 VOL UME DEPLETION, UNSPECIFIED 09/30/2012 Ot 787.03 VOM ITING ALONE 09/30/2012 Ot 787.91 NICO RRHEA 09/30/2012 Ot 791.9 ABN URINE FINDINGS NEC 03/25/2014 SELVIN BLANTON APRN Ot 382 .9 OTITIS MEDIA NOS 08/29/2014 Ot 530.81 08/29/2014 [...] 08/29/2014 J LUIS GARRISON, СВЕТЛАНА Gold Ot 611.7 1 08/29/2014 J LUIS GARRISON, СВЕТЛАНА Gold Ot 611.7 2 08/29/2014 DANIELLE LOPEZ MD Ot 599.0 URIN [...] 09/11/2014 J LUIS GARRISON, СВЕТЛАНА Gold Ot 611.7 1 09/11/2014 СВЕТЛАНА DIETZ MD Ot 611.7 2 10/01/2014 СВЕТЛАНА DIETZ MD Ot 640.0 3 10/24/2014 СВЕТЛАНА DIETZ MD Ot 640.0 3 12/15/2014 Ot 646.83 PRE G COMPL NEC- ANTEPART 12/15/2014 Ot 788.1 DYSURIA 04/17/2015 SANDRA KAPLAN MD Ot 621.8 DISORDERS OF UTERUS NEC 04/17/2015 SANDRA KAPLAN MD Ot 648.91 OTH CURR COND-DELIVERED 04/17/2015 SANDRA KAPLAN MD Ot 653.21 INLET CONTRACTION-DELIV 04/17/2015 SANDRA KAPLAN MD Ot 653.41 FETOPELV DISPROPOR-DELIV 04/17/2015 SANDRA KAPLAN MD Ot 660.11 BONY PELV OBSTRUCT-DELIV 04/17/2015 SANDRA KAPLAN MD Ot V06.1 [id number], COMBINED [ 04/17/2015 SANDRA KAPLAN MD Ot [...] 05/23/2015 J LUIS GARRISON, СВЕТЛАНА Gold Ot 611.7 1 05/23/2015 J LUIS GARRISON, СВЕТЛАНА Gold Ot 611.7 2 05/23/2015 J LUIS GARRISON, СВЕТЛАНА Gold Ot 640.0 3 06/24/2015 EUSEBIO GARRISON, SANDRA Loya Ot 625.8 06/24/2015 EUSEBIO GARRISON, SANDRA Loya Ot 626.8 06/30/2015 EUSEBIO GARRISON, SANDRA Loya Ot 285.9 06/30/2015 EUSEBIO GARRISON, SANDRA Loya [...] 11/17/2015 J LUIS GARRISON, СВЕТЛАНА Gold Ot 611.7 1 11/17/2015 J LUIS GARRISON, СВЕТЛАНА Gold Ot 611.7 2 11/17/2015 J LUIS GARRISON, СВЕТЛАНА Gold Ot 640.0 3 11/17/2015 EUSEBIO GARRISON, SANDRA Loya Ot 285.9 11/17/2015 EUSEBIO GARRISON, SANDRA Loya Ot 625.8 11/17/2015 EUSEBIO GARRISON, SANDRA Loya Ot V72.63 11/17/2015 EUSEBIO GARRISON, SANDRA G Ot V74.8 11/17/2015 EUSEBIO GARRISON, SANDRA Vincenzo Ot 625.8 11/17/2015 EUSEBIO GARRISON, SANDRA Vincenzo Ot 626.8 11/17/2015 EUSEBIO GARRISON, SANDRA Vincenzo Ot 625.9 11/17/2015 EUSEBIO GARRISON, SANDRA Vincenzo Ot V72.84 12/03/2015 J LUIS GARRISON, СВЕТЛАНА Gold Ot R53.8 3 12/03/2015 J LUIS GARRISON, СВЕТЛАНА Gold Ot R63.5 12/03/2015 J LUIS GARRISON, СВЕТЛАНА Gold Ot S70.11XA 12/03/2015 J LUIS GARRISON, СВЕТЛАНА Gold Ot X58.XXXA 12/03/2015 J LUIS GARRISON, СВЕТЛАНА Gold Ot Y99.8 2016 Ot S99.922A 2016 Ot X58.XXXA 01/15/2016 Ot S99.922A 01/15/2016 Ot X58.XXXA 01/28/2016 Ot S99.922A U NSPECIFIED INJURY OF LEFT FOOT, INITIAL 01/28/2016 Ot X58.XXXA E XPOSURE TO OTHER SPECIFIED FACTORS, INI 08/12/2016 Ot 640.03 THR EATEN ABORT- ANTEPART 08/12/2016 Ot 649.63 LITTLE TRAVERSE RINE SIZE DATE DISCREPANCY, ANTEPARTU 08/12/2016 Ot 649.63 LITTLE TRAVERSE RINE SIZE DATE DISCREPANCY, ANTEPARTU 08/12/2016 Ot 285.9 ANEM IA NOS 08/12/2016 Ot 632 MISSED 08/12/2016 Ot 626.0 ABSE NCE OF MENSTRUATION 08/12/2016 Ot 626.4 IRRE GULAR MENSTRUATION 08/12/2016 Ot 729.81 SWE LLING OF LIMB 08/12/2016 Ot 959.5 FING ER INJURY NOS 08/12/2016 Ot E000.8 OTH ER EXTERNAL CAUSE STATUS 08/12/2016 Ot E928.9 ACC IDENT NOS 08/12/2016 EUSEBIO GARRISON, SANDRA Loya Ot V72.84 EXAM PRE-OPERATIVE NOS 08/12/2016 J LUIS GARRISON, СВЕТЛАНА Gold Ot 611.7 1 MASTODYNIA 08/12/2016 J LUIS GARRISON, СВЕТЛАНА Gold Ot 611.7 2 LUMP OR MASS IN BREAST 08/12/2016 J LUIS GARRISON, СВЕТЛАНА Gold Ot 640.0 3 THREATEN ABORT-ANTEPART 08/12/2016 SANDRA KAPLAN MD Ot [...] 08/12/2016 J LUIS GARRISON, СВЕТЛАНА Gold Ot R53.8 3 OTHER FATIGUE 08/12/2016 J LUIS GARRISON, СВЕТЛАНА Gold Ot R63.5 ABNORMAL WEIGHT GAIN 08/12/2016 J LUIS GARRISON, СВЕТЛАНА Gold Ot S70.11XA CONTUSION OF RIGHT THIGH, INITIAL ENCOUN 08/12/2016 J LUIS GARRISON, СВЕТЛАНА Gold Ot X58.XXXA EXPOSURE TO OTHER SPECIFIED FACTORS, INI 08/12/2016 J LUIS GARRISON, СВЕТЛАНА Gold Ot Y99.8 OTHER EXTERNAL CAUSE STATUS 08/12/2016 Ot S99.922A U NSPECIFIED INJURY OF LEFT FOOT, INITIAL 08/12/2016 Ot X58.XXXA E XPOSURE TO OTHER SPECIFIED FACTORS, INI 08/12/2016 Ot 640.03 THR EATEN ABORT- ANTEPART 08/12/2016 Ot 649.63 LITTLE TRAVERSE RINE SIZE DATE DISCREPANCY, ANTEPARTU 08/12/2016 Ot 649.63 LITTLE TRAVERSE RINE SIZE DATE DISCREPANCY, ANTEPARTU 08/12/2016 Ot 285.9 ANEM IA NOS 08/12/2016 Ot 632 MISSED 08/12/2016 Ot 626.0 ABSE NCE OF MENSTRUATION 08/12/2016 Ot 626.4 IRRE GULAR MENSTRUATION 08/12/2016 Ot 729.81 SWE LLING OF LIMB 08/12/2016 Ot 959.5 FING ER INJURY NOS 08/12/2016 Ot E000.8 OTH ER EXTERNAL CAUSE STATUS 08/12/2016 Ot E928.9 ACC IDENT NOS 08/12/2016 SANDRA KAPLAN MD Ot V72.84 EXAM PRE-OPERATIVE NOS 08/12/2016 СВЕТЛАНА DIETZ MD Ot 611.7 1 MASTODYNIA 08/12/2016 СВЕТЛАНА DIETZ MD Ot 611.7 2 LUMP OR MASS IN BREAST 08/12/2016 СВЕТЛАНА DIETZ MD Ot 640.0 3 THREATEN ABORT-ANTEPART 08/12/2016 SANDRA KAPLAN MD Ot [...] PRE-OPERATIVE NOS 08/12/2016 СВЕТЛАНА DIETZ MD Ot R53.8 3 OTHER FATIGUE 08/12/2016 СВЕТЛАНА DIETZ MD Ot R63.5 ABNORMAL WEIGHT GAIN 08/12/2016 СВЕТЛАНА DIETZ MD Ot S70.11XA CONTUSION OF RIGHT THIGH, INITIAL ENCOUN 08/12/2016 СВЕТЛАНА DIETZ MD Ot X58.XXXA EXPOSURE TO OTHER SPECIFIED FACTORS, INI 08/12/2016 СВЕТЛАНА DIETZ MD Ot Y99.8 OTHER EXTERNAL CAUSE STATUS 08/12/2016 Ot S99.922A U NSPECIFIED INJURY OF LEFT FOOT, INITIAL 08/12/2016 Ot X58.XXXA E XPOSURE TO OTHER SPECIFIED FACTORS, INI 08/12/2016 NELSON GARRISON, JOSS Nj Ot K59.00 CONSTIPATION, UNSPECIFIED 08/12/2016 NELSON GARRISON, JOSS Nj Ot M54.5 LOW BACK PAIN 08/12/2016 JOSS DAMON MD Ot N39.0 URINARY TRACT INFECTION, SITE NOT SPECIF 08/12/2016 JOSS DAMON MD Ot R10.32 LEFT LOWER QUADRANT PAIN 08/12/2016 JOSS DAMON MD Ot Z97.5 PRESENCE OF (INTRAUTERINE) CONTRACEPTIVE 08/13/2016 JOSS DAMON MD Ot K59.00 CONSTIPATION, UNSPECIFIED 08/13/2016 JOSS DAMON MD Ot M54.5 LOW BACK PAIN 08/13/2016 JOSS DAMON MD Ot N39.0 URINARY TRACT INFECTION, SITE NOT SPECIF 08/13/2016 JOSS DAMON MD Ot R10.32 LEFT LOWER QUADRANT PAIN 08/13/2016 JOSS DAMON MD Ot Z97.5 PRESENCE OF (INTRAUTERINE) CONTRACEPTIVE 09/11/2016 SELVIN BLANTON WANT AD CLERK Ot B34 .9 VIRAL INFECTION, UNSPECIFIED 09/11/2016 SELVIN BLANTON WANT AD CLERK Ot R59 .0 LOCALIZED ENLARGED LYMPH NODES 09/13/2016 SELVIN BLATNON WANT AD CLERK Ot B34 .9 VIRAL INFECTION, UNSPECIFIED 09/13/2016 SELVIN BLANTON WANT AD CLERK Ot R59 .0 LOCALIZED ENLARGED LYMPH NODES 10/22/2016 SELVIN BLANTON APRN Ot N39 .0 URINARY TRACT INFECTION, SITE NOT SPECIF 10/22/2016 SELVIN BLANTON WANT AD CLERK Ot R51 HEADACHE 11/29/2016 RASHARD CHAMBERS WANT AD CLERK Ot Z87.42 PERSONAL HISTORY OF OTH DISEASES OF THE 11/29/2016 RASHARD CHAMBERS WANT AD CLERK Ot Z87.42 PERSONAL HISTORY OF OTH DISEASES OF THE 12/13/2016 RASHARD CHAMBERS WANT AD CLERK Ot Z87.42 PERSONAL HISTORY OF OTH DISEASES OF THE 03/15/2017 DANIELLE LOPEZ MD Ot L27.0 GEN SKIN ERUPTION DUE TO DRUGS AND MEDS 03/15/2017 DANIELLE LOPEZ MD Ot R21 RASH AND OTHER NONSPECIFIC SKIN ERUPTION 03/15/2017 DANIELLE LOPEZ MD Ot Z88.1 ALLERGY STATUS TO OTHER ANTIBIOTIC AGENT 03/17/2017 DANIELLE LOPZE MD, Ot L27.0 GEN SKIN ERUPTION DUE TO DRUGS AND MEDS 03/17/2017 DANIELLE LOPEZ MD Ot R21 RASH AND OTHER NONSPECIFIC SKIN ERUPTION 03/17/2017 DANIELLE LOPEZ MD Ot Z88.1 ALLERGY STATUS TO OTHER ANTIBIOTIC [...] 05/27/2017 SANDRA KAPLAN MD, Ot 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 05/31/2017 SANDRA KAPLAN MD, [...] OTHER SPECIFIED ABNORMAL UTERINE AND VAG 05/31/2017 SANDAR KAPLAN MD, Ot R10.2 PELVIC AND PERINEAL PAIN 05/31/2017 SANDRA KAPLAN MD, Ot Z79.899 OTHER PRISON (CURRENT) DRUG THERAPY 09/04/2017 SELVIN BLANTON APRN Ot F32 .9 MAJOR DEPRESSIVE DISORDER, SINGLE EPISOD 09/04/2017 SELVIN BLANTON APRN Ot J02 .8 ACUTE PHARYNGITIS DUE TO OTHER SPECIFIED 09/04/2017 SELVIN BLANTON APRN Ot J02 .9 ACUTE PHARYNGITIS, UNSPECIFIED 09/04/2017 SELVIN BLANTON APRN Ot R21 RASH AND OTHER NONSPECIFIC SKIN ERUPTION 09/04/2017 SELVIN BLANTON APRN Ot Z87 .2 PERSONAL HISTORY OF DISEASES OF THE SKIN 09/04/2017 SELVIN BLANTON WANT AD CLERK Ot Z87.59 PERSONAL HISTORY OF COMP OF PREG, CHLDBR 09/04/2017 SELVIN BLANTON APRN Ot Z90.89 ACQUIRED ABSENCE OF OTHER ORGANS 09/09/2017 NICOLLE LINN MD Ot F32. 9 MAJOR DEPRESSIVE DISORDER, SINGLE EPISOD 09/09/2017 NICOLLE LINN MD Ot R21 RASH AND OTHER NONSPECIFIC SKIN ERUPTION 09/09/2017 NICOLLE LINN MD Ot Z87.448 PERSONAL HISTORY OF OTHER DISEASES OF UR 09/09/2017 NICOLLE LINN MD Ot Z90.710 ACQUIRED ABSENCE OF BOTH CERVIX AND UTER 09/09/2017 NICOLLE LINN MD Ot Z90. 89 ACQUIRED ABSENCE OF OTHER ORGANS 09/09/2017 NICOLLE ILNN MD Ot Z97. 5 PRESENCE OF (INTRAUTERINE) CONTRACEPTIVE 09/12/2017 NICOLLE LINN MD Ot F32. 9 MAJOR DEPRESSIVE DISORDER, SINGLE EPISOD 09/12/2017 NICOLLE LINN MD Ot R21 RASH AND OTHER NONSPECIFIC SKIN ERUPTION 09/12/2017 NICOLLE LINN MD Ot Z87.448 PERSONAL HISTORY OF OTHER DISEASES OF UR 09/12/2017 NICOLLE LINN MD Ot Z90.710 ACQUIRED ABSENCE OF BOTH CERVIX AND UTER 09/12/2017 NICOLLE LINN MD Ot Z90. 89 ACQUIRED ABSENCE OF OTHER ORGANS 09/12/2017 NICOLLE LINN MD Ot Z97. 5 PRESENCE OF (INTRAUTERINE) CONTRACEPTIVE 09/14/2017 NICOLLE LINN MD Ot F32. 9 MAJOR DEPRESSIVE DISORDER, SINGLE EPISOD 09/14/2017 NICOLLE LINN MD Ot R21 RASH AND OTHER NONSPECIFIC SKIN ERUPTION 09/14/2017 NICOLLE LINN MD Ot Z87.448 PERSONAL HISTORY OF OTHER DISEASES OF UR 09/14/2017 NICOLLE LINN MD Ot Z90.710 ACQUIRED ABSENCE OF BOTH CERVIX AND UTER 09/14/2017 NICOLLE LINN MD Ot Z90. 89 ACQUIRED ABSENCE OF OTHER ORGANS 09/14/2017 NICOLLE LINN MD Ot Z97. 5 PRESENCE OF (INTRAUTERINE) CONTRACEPTIVE 10/16/2017 SELVIN BLANTON APRN Ot B34 .9 VIRAL INFECTION, UNSPECIFIED 10/16/2017 SELVIN BLANTON APRN Ot F32 .9 MAJOR DEPRESSIVE DISORDER, SINGLE EPISOD 10/16/2017 SELVIN [...] OTHER ORGANS 10/16/2017 SELVIN BLANTON APRN Ot Z97 .5 PRESENCE OF (INTRAUTERINE) CONTRACEPTIVE 11/16/2017 NICOLLE LINN MD Ot F32. 9 MAJOR DEPRESSIVE DISORDER, SINGLE EPISOD 11/16/2017 NICOLLE LINN MD Ot J06. 9 ACUTE UPPER RESPIRATORY INFECTION, UNSPE 11/16/2017 NICOLLE LINN MD Ot R05 COUGH 11/16/2017 NICOLLE LINN MD Ot Z82. 49 FAMILY HX OF ISCHEM HEART DIS AND OTH DI 11/16/2017 NICOLLE LINN MD Ot Z87.448 PERSONAL HISTORY OF OTHER DISEASES OF UR 11/16/2017 NICOLLE LINN MD Ot Z87. 59 PERSONAL HISTORY OF COMP OF PREG, CHLDBR 11/16/2017 NICOLLE LINN MD Ot Z88. 0 ALLERGY STATUS TO PENICILLIN 11/16/2017 NICOLLE LINN MD Ot Z88. 1 ALLERGY STATUS TO OTHER ANTIBIOTIC AGENT 11/16/2017 NICOLLE LINN MD Ot Z88. 5 ALLERGY STATUS TO NARCOTIC AGENT STATUS 11/16/2017 NICOLLE LINN MD Ot Z88. 8 ALLERGY STATUS TO OTH DRUG/MEDS/BIOL SUB 11/16/2017 NICOLLE LINN MD Ot Z90.710 ACQUIRED ABSENCE OF BOTH CERVIX AND UTER 11/16/2017 NICOLLE LINN MD Ot Z90. 89 ACQUIRED ABSENCE OF OTHER ORGANS 11/16/2017 NICOLLE LINN MD Ot Z97. 5 PRESENCE OF (INTRAUTERINE) CONTRACEPTIVE 11/18/2017 NICOLLE LINN MD Ot F32. 9 MAJOR DEPRESSIVE DISORDER, SINGLE EPISOD 11/18/2017 NICOLLE LINN MD Ot J06. 9 ACUTE UPPER RESPIRATORY INFECTION, UNSPE 11/18/2017 NICOLLE LINN MD Ot R05 COUGH 11/18/2017 NICOLLE LINN MD Ot Z82. 49 FAMILY HX OF ISCHEM HEART DIS AND OTH DI 11/18/2017 NICOLLE LINN MD Ot Z87.448 PERSONAL HISTORY OF OTHER DISEASES OF UR 11/18/2017 NICOLLE LINN MD Ot Z87. 59 PERSONAL HISTORY OF COMP OF PREG, CHLDBR 11/18/2017 NICOLLE LINN MD Ot Z88. 0 ALLERGY STATUS TO PENICILLIN 11/18/2017 NICOLLE LINN MD Ot Z88. 1 ALLERGY STATUS TO OTHER ANTIBIOTIC AGENT 11/18/2017 NICOLLE LINN MD Ot Z88. 5 ALLERGY STATUS TO NARCOTIC AGENT STATUS 11/18/2017 NICOLLE LINN MD Ot Z88. 8 ALLERGY STATUS TO OTH DRUG/MEDS/BIOL SUB 11/18/2017 NICOLLE LINN MD Ot Z90.710 ACQUIRED ABSENCE OF BOTH CERVIX AND UTER 11/18/2017 NICLOLE LINN MD Ot Z90. 89 ACQUIRED ABSENCE OF OTHER ORGANS 11/18/2017 NICOLLE LINN MD Ot Z97. 5 PRESENCE OF (INTRAUTERINE) CONTRACEPTIVE 11/22/2017 NICOLLE LINN MD Ot F32. 9 MAJOR DEPRESSIVE DISORDER, SINGLE EPISOD 11/22/2017 NICOLLE LINN MD Ot J06. 9 ACUTE UPPER RESPIRATORY INFECTION, UNSPE 11/22/2017 NICOLLE LINN MD Ot R05 COUGH 11/22/2017 NICOLLE LINN MD Ot Z82. 49 FAMILY HX OF ISCHEM HEART DIS AND OTH DI 11/22/2017 NICOLLE LINN MD Ot Z87.448 PERSONAL HISTORY OF OTHER DISEASES OF UR 11/22/2017 NICOLLE LINN MD Ot Z87. 59 PERSONAL HISTORY OF COMP OF PREG, CHLDBR 11/22/2017 NICOLLE LINN MD Ot Z88. 0 ALLERGY STATUS TO PENICILLIN 11/22/2017 NICOLLE LINN MD Ot Z88. 1 ALLERGY STATUS TO OTHER ANTIBIOTIC AGENT 11/22/2017 NICOLLE LINN MD Ot Z88. 5 ALLERGY STATUS TO NARCOTIC AGENT STATUS 11/22/2017 NICOLLE LINN MD Ot Z88. 8 ALLERGY STATUS TO OTH DRUG/MEDS/BIOL SUB 11/22/2017 NICOLLE LINN MD Ot Z90.710 ACQUIRED ABSENCE OF BOTH CERVIX AND UTER 11/22/2017 NICOLLE LINN MD Ot Z90. 89 ACQUIRED ABSENCE OF OTHER ORGANS 11/22/2017 NICOLLE LINN MD Ot Z97. 5 PRESENCE OF (INTRAUTERINE) CONTRACEPTIVE 08/26/2019 YELENA GUTIERREZ PRODUCTION TEAM MEMBER Ot F32.9 MAJOR DEPRESSIVE DISORDER, SINGLE EPISOD 08/26/2019 MATT, YELENA PRODUCTION TEAM MEMBER Ot I10 ESSENTIAL (PRIMARY) HYPERTENSION 08/26/2019 MATT YELENA PRODUCTION TEAM MEMBER Ot J06.9 ACUTE UPPER RESPIRATORY INFECTION, UNSPE 08/26/2019 MATT YELENA PRODUCTION TEAM MEMBER Ot R05 COUGH 08/26/2019 MATT, YELENA PRODUCTION TEAM MEMBER Ot Z88.0 ALLERGY STATUS TO PENICILLIN 08/26/2019 MATT, YELENA PRODUCTION TEAM MEMBER Ot Z88.1 ALLERGY STATUS TO OTHER ANTIBIOTIC AGENT 08/26/2019 MATT YELENA PRODUCTION TEAM MEMBER Ot Z88.8 ALLERGY STATUS TO OTH DRUG/MEDS/BIOL SUB 08/26/2019 MATT YELENA PRODUCTION TEAM MEMBER Ot Z90.710 ACQUIRED ABSENCE OF BOTH CERVIX AND UTER 08/26/2019 MATT YELENA PRODUCTION TEAM MEMBER Ot Z90.89 ACQUIRED ABSENCE OF OTHER ORGANS Procedures Code Description Performed By Per formed On 74.1 04/15/2015 Results Test Result Range Complete urinalysis with reflex to cultu re - 08/12/16 00:28 Urine color determination YELLOW NRG Urine clarity determination CLEAR NR G Urine pH measurement by test strip 5 5-9 Specific gravity of urine by test strip 1.025 1.016-1.022 Urine protein assay by test strip, semi-quantitative NEGATIVE NEGATIVE Urine glucose detection by automated test strip NE GATIVE NEGATIVE Erythrocytes detection in urine sediment by light micr oscopy 1+ NEGATIVE Urine ketones detection by automated test strip NE GATIVE NEGATIVE Urine nitrite detection by test strip NEGATIVE NEGATIVE Urine total bilirubin detection by test strip NEGA TIVE NEGATIVE Urine urobilinogen measurement by automated test strip (mass/volume) NORMAL NORMAL Urine leukocyte esterase detection by dipstick 3+ NEGATIVE Automated urine sediment erythrocyte cou nt by microscopy (number/high power field) RARE NRG Automated urine sediment leukocyte count by microscopy (number/high power field) [HPF] NRG Bacteria detection in urine sediment by light microsco py FEW NRG Squamous epithelial cells detection in u rine sediment by light microscopy 5-10 NRG Crystals detection in urine sediment by light microsco py NONE NRG Casts detection in urine sediment by light microscopy NONE NRG Mucus detection in urine sediment by light microscopy SMALL NRG Complete urinalysis with reflex to culture YES NRG Bacterial urine culture - 08/12/16 00:28 URINE CULTURE RESULTS <10,000/ML NRG Complete blood count (CBC) with automate d white blood cell (WBC) differential - 08/12/16 00:35 Blood leukocytes automated count (number/volume) 9.4 10*3/uL 4.3-11.0 Blood erythrocytes automated count (number/volume) 4.73 10*6/uL 4.35-5.85 Venous blood hemoglobin measurement (mass/volume) 14.5 g/dL 11.5-16.0 Blood hematocrit (volume fraction) 42 % 35-52 Automated erythrocyte mean corpuscular volume 88 [ foz_us] 80-99 Automated erythrocyte mean corpuscular h emoglobin (mass per erythrocyte) 31 pg 25-34 Automated erythrocyte mean corpuscular h emoglobin concentration measurement (mass/volume) 35 g/dL 32-36 Automated erythrocyte distribution width ratio 12. 7 % 10.0- 14.5 Automated blood platelet count (count/volume) 339 10*3/uL [...] 10*3 1.0-4.0 Blood monocytes automated count (number/volume) 0. 7 10*3 0.0-1.0 Automated eosinophil count 0.2 10*3/uL 0 .0-0.3 Automated blood basophil count (count/volume) 0.0 10*3/uL 0.0-0.1 Comprehensive metabolic panel - 08/12/16 00:35 Serum or plasma sodium measurement (moles/volume) 141 mmol/L 135-145 Serum or plasma potassium measurement (moles/volume) 3.6 mmol/L 3.6-5.0 Serum or plasma chloride measurement (moles/volume) 105 mmol/L 98-107 Carbon dioxide 23 mmol/L 21-32 Serum or plasma anion gap determination (moles/volume) 13 mmol/L 5-14 Serum or plasma urea nitrogen measurement (mass/volume ) 8 mg/dL 7-18 Serum or plasma creatinine measurement (mass/volume) 0.74 mg/dL 0.60-1.30 Serum or plasma urea nitrogen/creatinine mass ratio 11 NRG Serum or plasma creatinine measurement w ith calculation of estimated glomerular filtration rate > NRG Serum or plasma glucose measurement (mass/volume) 108 mg/dL 70-105 Serum or plasma calcium measurement (mass/volume) 9.6 mg/dL 8.5-10.1 Serum or plasma total bilirubin measurement (mass/volu me) 0.4 mg/dL 0.1-1.0 Serum or plasma alkaline phosphatase pretty surement (enzymatic activity/volume) 51 U/L 40-136 Serum or plasma aspartate aminotransfera se measurement (enzymatic activity/volume) 11 U/L 5-34 Serum or plasma alanine aminotransferase measurement (enzymatic activity/volume) 15 U/L 0-55 Serum or plasma protein measurement (mass/volume) 6.6 g/dL 6.4-8.2 Serum or plasma albumin measurement (mass/volume) 4.3 g/dL 3.2-4.5 Complete blood count (CBC) with automate d white blood cell (WBC) differential - 09/11/16 16:48 Blood leukocytes automated count (number/volume) 9.6 10*3/uL 4.3-11.0 Blood erythrocytes automated count (number/volume) 4.78 10*6/uL 4.35-5.85 Venous blood hemoglobin measurement (mass/volume) 14.5 g/dL 11.5-16.0 Blood hematocrit (volume fraction) 42 % 35-52 Automated erythrocyte mean corpuscular volume 88 [ foz_us] 80-99 Automated erythrocyte mean corpuscular h emoglobin (mass per erythrocyte) 30 pg 25-34 Automated erythrocyte mean corpuscular h emoglobin concentration measurement (mass/volume) 34 g/dL 32-36 Automated erythrocyte distribution width ratio 12. 9 % 10.0- 14.5 Automated blood platelet count (count/volume) 367 10*3/uL [...] 10*3 1.0-4.0 Blood monocytes automated count (number/volume) 0. 6 10*3 0.0-1.0 Automated eosinophil count 0.1 10*3/uL 0 .0-0.3 Automated blood basophil count (count/volume) 0.0 10*3/uL 0.0-0.1 Serum heterophile antibody titer - 09/11 16:48 Serum heterophile antibody titer NEGATIVE NEGATIVE Complete blood count (CBC) with automate d white blood cell (WBC) differential - 10/22/16 15:52 Blood leukocytes automated count (number/volume) 6.9 10*3/uL 4.3-11.0 Blood erythrocytes automated count (number/volume) 4.47 10*6/uL 4.35-5.85 Venous blood hemoglobin measurement (mass/volume) 13.5 g/dL 11.5-16.0 Blood hematocrit (volume fraction) 40 % 35-52 Automated erythrocyte mean corpuscular volume 90 [ foz_us] 80-99 Automated erythrocyte mean corpuscular h emoglobin (mass per erythrocyte) 30 pg 25-34 Automated erythrocyte mean corpuscular h emoglobin concentration measurement (mass/volume) 34 g/dL 32-36 Automated erythrocyte distribution width ratio 13. 0 % 10.0- 14.5 Automated blood platelet count (count/volume) 369 10*3/uL [...] 10*3 1.0-4.0 Blood monocytes automated count (number/volume) 0. 5 10*3 0.0-1.0 Automated eosinophil count 0.1 10*3/uL 0 .0-0.3 Automated blood basophil count (count/volume) 0.0 10*3/uL 0.0-0.1 Comprehensive metabolic panel - 10/22/16 15:52 Serum or plasma sodium measurement (moles/volume) 139 mmol/L 135-145 Serum or plasma potassium measurement (moles/volume) 4.1 mmol/L 3.6-5.0 Serum or plasma chloride measurement (moles/volume) 106 mmol/L 98-107 Carbon dioxide 24 mmol/L 21-32 Serum or plasma anion gap determination (moles/volume) 9 mmol/L 5-14 Serum or plasma urea nitrogen measurement (mass/volume ) 7 mg/dL 7-18 Serum or plasma creatinine measurement (mass/volume) 0.68 mg/dL 0.60-1.30 Serum or plasma urea nitrogen/creatinine mass ratio 10 NRG Serum or plasma creatinine measurement w ith calculation of estimated glomerular filtration rate > NRG Serum or plasma glucose measurement (mass/volume) 98 mg/dL 70-105 Serum or plasma calcium measurement (mass/volume) 9.1 mg/dL 8.5-10.1 Serum or plasma total bilirubin measurement (mass/volu me) 0.8 mg/dL 0.1-1.0 Serum or plasma alkaline phosphatase pretty surement (enzymatic activity/volume) 48 U/L 40-136 Serum or plasma aspartate aminotransfera se measurement (enzymatic activity/volume) 14 U/L 5-34 Serum or plasma alanine aminotransferase measurement (enzymatic activity/volume) 18 U/L 0-55 Serum or plasma protein measurement (mass/volume) 6.2 g/dL 6.4-8.2 Serum or plasma albumin measurement (mass/volume) 4.1 g/dL 3.2-4.5 Serum or plasma lithium measurement (mol es/volume) - 10/22/16 15:52 BNP level 17.5 pg/mL <100.0 THYROID STIMULATING HORMONE - 10/22/16 1 5:52 THYROID STIMULATING HORMONE 0.32 u[iU]/mL 0.35-4.94 Complete urinalysis with reflex to cultu re - 10/22/16 16:12 Urine color determination YELLOW NRG Urine clarity determination VERY CLOUDY NRG Urine pH measurement by test strip 6 5-9 Specific gravity of urine by test strip 1.020 1.016-1.022 Urine protein assay by test strip, semi-quantitative 2+ NEGATIVE Urine glucose detection by automated test strip NE GATIVE NEGATIVE Erythrocytes detection in urine sediment by light micr oscopy 1+ NEGATIVE Urine ketones detection by automated test strip 1+ NEGATIVE Urine nitrite detection by test strip NEGATIVE NEGATIVE Urine total bilirubin detection by test strip 1+ NEGATIVE Urine urobilinogen measurement by automated test strip (mass/volume) 1 mg/dL NORMAL Urine leukocyte esterase detection by dipstick 3+ NEGATIVE Automated urine sediment erythrocyte cou nt by microscopy (number/high power field) [HPF] NRG Automated urine sediment leukocyte count by microscopy (number/high power field) [HPF] NRG Bacteria detection in urine sediment by light microsco py LARGE NRG Squamous epithelial cells detection in u rine sediment by light microscopy 25-50 NRG Crystals detection in urine sediment by light microsco py NONE NRG Casts detection in urine sediment by light microscopy NONE NRG Mucus detection in urine sediment by light microscopy LARGE NRG Complete urinalysis with reflex to culture YES NRG Bacterial urine culture - 10/22/16 16:12 URINE CULTURE RESULTS <10,000/ML NRG Methicillin resistant Staphylococcus aur eus (MRSA) screening culture - 05/19/17 13:24 Methicillin resistant Staphylococcus aureus (MRSA) scr eening culture NEG NRG Complete blood count (CBC) with automate d white blood cell (WBC) differential - 05/19/17 13:25 Blood leukocytes automated count (number/volume) 8.2 10*3/uL 4.3-11.0 Blood erythrocytes automated count (number/volume) 4.57 10*6/uL 4.35-5.85 Venous blood hemoglobin measurement (mass/volume) 14.0 g/dL 11.5-16.0 Blood hematocrit (volume fraction) 41 % 35-52 Automated erythrocyte mean corpuscular volume 90 [ foz_us] 80-99 Automated erythrocyte mean corpuscular h emoglobin (mass per erythrocyte) 31 pg 25-34 Automated erythrocyte mean corpuscular h emoglobin concentration measurement (mass/volume) 34 g/dL 32-36 Automated erythrocyte distribution width ratio 12. 7 % 10.0- 14.5 Automated blood platelet count (count/volume) 344 10*3/uL [...] 10*3 1.0-4.0 Blood monocytes automated count (number/volume) 0. 6 10*3 0.0-1.0 Automated eosinophil count 0.2 10*3/uL 0 .0-0.3 Automated blood basophil count (count/volume) 0.0 10*3/uL 0.0-0.1 Blood type T Indirect antibody screen pa counts include 234 beds at the [facility] - 05/19/17 13:25 ABO+Rh group AP NRG Blood group antibody screen NEGATIVE NR G Urine beta human chorionic gonadotropin (hCG) measurement - 05/27/17 11:33 Urine beta human chorionic gonadotropin (hCG) measurem ent NEGATIVE NEGATIVE Blood type T Indirect antibody screen pa counts include 234 beds at the [facility] - 05/27/17 11:45 ABO+Rh group AP NRG Transfusion band number [id number] NRG Blood group antibody screen NEGATIVE NR G Streptococcus pyogenes antigen detection - 09/04/17 18:22 Streptococcus pyogenes antigen detection NEGATIVE NEGATIVE Bacterial throat culture - 09/04/17 18:2 2 Bacterial throat culture NBS NRG Influenza virus A and B antigen detectio n - 11/16/17 09:59 FLU RESULT NEGATIVE FOR INFLUENZA A AND B ANTIGENS BY IA NRG TSH - 03/13/19 10:22 TSH 1.40 mIU/L NRG Encounters ACCT No. Visit Date/Time Discharge Status Pt. Type Provider Facility Loc./Unit Complaint [id number] 05/01/2019 08:30:00 05/01/2019 23:59:5 9 CLS Outpatient JAM THOMPSON [facility] [id number] 03/13/2019 09:00:00 Document Registration [id number] 09/15/2019 14:17:00 14:34:00 DIS Emergency SELVIN BLANTON APRN Via [facility] ER BLEEDING IN EYES [id number] 08/26/2019 15:54:00 019 17:03:00 DIS Emergency YELENA GUTIERREZ [facility] ER SOB [id number] 11/16/2017 09:53:00 018 11:03:00 DIS Emergency NICOLLE LINN MD Via [facility] ER FLU LIKE SYMPTOMS [id number] 10/16/2017 20:45:00 018 21:56:00 DIS Emergency SELVIN BLANTON APRN Via [facility] ER COUGH [id number] 09/08/2017 22:42:00 017 01:19:00 DIS Emergency NICOLLE LINN MD Via [facility] ER RASH [id number] 09/04/2017 18:07:00 017 19:06:00 DIS Emergency SELVIN BLANTON APRN Via [facility] ER RASH/THROAT PAIN [id number] 05/27/2017 11:32:00 017 20:15:00 DIS Outpatient [facility] TERINE BLEEDING CHRONIC PELVIC PAIN [id number] 05/19/2017 13:03:00 017 13:30:00 DIS Outpatient SANDRA KAPLAN MD Via [facility] PREOP DYSFUNCTIONAL U TERINE BLEEDING CHRONIC PELVIC PAIN [id number] 03/15/2017 23:06:00 017 23:51:00 DIS Emergency JOHN GARRISON, DANIELLE Milian Via [facility] ER POSS ALLERGIC R XN [id number] 11/26/2016 13:17:00 017 23:59:59 CLS Outpatient RASHARD CHAMEBRS WANT AD CLERK Via [facility] RAD HX OF PCOS [id number] 10/22/2016 15:28:00 017 16:56:00 DIS Emergency SELVIN BLANTON WANT AD CLERK Via [facility] ER HEADACHE/SWOLLEN CALFS [id number] 09/11/2016 16:34:00 016 17:38:00 DIS Emergency SELVIN BLANTON WANT AD CLERK Via [facility] ER GLANDS SWOLLEN/LETHARGI C/RASH [id number] 08/12/2016 00:13:00 016 01:57:00 DIS Emergency NELSON GARRISON, JOSS Nj Via [facility] ER ABD PAIN,OVARY PAIN [id number] 11/17/2015 11:07:00 016 23:59:59 CLS Outpatient СВЕТЛАНА DIETZ MD Via [facility] RAD RIGHT THIGH BRUISING,WE IGHT GAIN,FATIGUE [id number] 07/07/2015 06:04:00 015 12:42:00 DIS Outpatient SANDRA KAPLAN MD Via [facility] CHRONIC PELVIC PAIN [id number] 07/04/2015 05:53:00 015 23:59:59 CLS Outpatient SANDRA KAPLAN MD Via [facility] PREOP CHRONIC PELVIC PAIN [id number] 06/18/2015 09:50:00 23:59:59 CLS Outpatient SANDRA KAPLAN MD Via [facility] CHRONIC PELVIC PAIN/PELVIC MASS [id number] 06/17/2015 08:09:00 015 23:59:59 CLS Outpatient SANDRA KAPLAN MD [facility] PREOP CHRONIC PELVIC PAIN/PELVIC MASS [id number] 05/22/2015 14:37:00 015 16:50:00 DIS Emergency SAMEER ESCALONA [facility] ER VAG BLEEDING [id number] 04/14/2015 21:09:00 015 12:20:00 DIS Inpatient SANDRA KAPLAN MD Via [facility] LDRP LABOR [id number] 09/11/2014 14:39:00 014 23:59:59 CLS Outpatient СВЕТЛАНА DIETZ MD [facility] RAD THREATENED MISCARRIAGE [id number] 09/04/2014 18:54:00 014 23:00:00 DIS Emergency SAMEER ESCALONA Via [facility] ER PASSING MUCUS AT 7 WEE [place] [id number] 08/29/2014 20:09:00 014 22:41:00 DIS Emergency DANIELLE LOPEZ MD Via [facility] ER ABD CRAMPING, V AGINAL BLEEDING AT 5 WEEKS [id number] 03/25/2014 20:16:00 014 20:34:00 DIS Emergency SELVIN BLANTON APRN Via [facility] ER R EAR PAIN,DRAINAGE,SWE LLING [id number] 05/01/2013 10:38:00 013 23:59:59 CLS Outpatient СВЕТЛАНА DIETZ MD [facility] RAD PAINFUL LUMP IN RT [facility] [id number] 02/08/2013 09:49:00 013 23:59:59 CLS Outpatient SANDRA KAPLAN MD [facility] PREOP DUB [id number] 01/09/2016 12:57:00 Document Registration [id number] 12/14/2014 23:26:00 Document Registration [id number] 12/05/2012 12:28:00 Document Registration [id number] 09/30/2012 13:46:00 Document Registration [id number] 08/16/2012 17:01:00 Document Registration [id number] 12/03/2011 16:28:00 Document Registration [id number] 12/02/2011 14:10:00 Document Registration [id number] 11/03/2011 15:06:00 Document Registration [id number] 10/12/2011 14:54:00 Document Registration [id number] 10/09/2011 23:48:00 Document Registration [id number] 10/08/2011 21:35:00 Document Registration [id number] 12/29/2009 08:13:00 Document Registration [id number] 12/26/2009 11:29:00 Document Registration
== END 2019-09-15 14:34 | disposition home or self-care (01) ==
LOC: EDUNIT# 14:16 → ER 14:17
DX: H11.33 Conjunctival hemorrhage, bilateral (principal); F32.9 Major depressive disorder, single episode, unspecified; Z88.0 Allergy status to penicillin; Z88.1 Allergy status to other antibiotic agents; Z88.8 Allergy status to other drugs, medicaments and biological substances; Z90.89 Acquired absence of other organs; Z90.710 Acquired absence of both cervix and uterus; Z82.49 Family history of ischemic heart disease and other diseases of the circulatory system
CPT/HCPCS: 99282

== ENCOUNTER 2019-11-13 23:15 | Emergency (ER) | payer SELFPAY ==
[~2019-11-13] VITALS: Ht 160 cm; Wt 89.5 kg
[~2019-11-13 23:15] MED LIST changes: +ACET-789 PO
--- NOTE | 2019-11-13 23:39 | ED Abdominal Pain ---
General Chief Complaint: Abdominal/GI Problems Stated Complaint: LOWER BACK & KIDNEY PAIN, ABDOMINAL PAIN Source of Information: Patient History of Present Illness Date Seen by Provider: Nov 13, 2019 Time Seen by Provider: 23:38 Initial Comments PT ARRIVES VIA POV WITH MOTHER, WHO IS ALSO BEING SEEN TONIGHT FOR UNRELATED COMPLAINT PT C/O LOW BACK PAIN AND EFT FLANK PAIN AND GENERALIZED ABDOMINAL PAIN FOR 4 DAYS STATES " LIKE SOMEONE HITTING ME OR STABBING ME" STATES SHE HAS NOT TAKEN ANYTHING FOR PAIN AT ANY TIME, AND PAIN IS NOT BAD NOW. STATES "I WAS PEEING BLOOD"--BEGAN TUESDAY OR FRIDAY 11/10 OR 11/11., AND YESTERDAY AND STATES SHE HAD BLOOD IN HER URINE THIS AM STATES SHE WENT TO [facility] YESTERDAY AND URINE WAS CLEAR. NO ADDITIONAL TESTS. NO RX PT STATES SHE HAS A FOLLOW UP APPOINTMENT TODAY 11/14/19 AT 2:00 PM FOR FOLLOW UP OF THIS PROBLEM STATES SHE HAS NAUSEA WHEN THE PAIN IS BAD, BUT NO NAUSEA NOW. HAS CHRONIC PAIN IN RIGHT GROIN--STATES "THEY SAID I HAD A HERNIA" BUT HAS NOT HAD ANY TESTS FOR THAT AND HAS NOT BEEN REFERRED TO SURGEON. SYMPTOMS NO DIFFERENT TONIGHT--JUST DECIDED TO CHECK IN BECAUSE HER MOM IS HERE TOO. LMP--PT HAS HAD A HYSTERECTOMY AT AGE 22. PCP: KAMI-JUAN Allergies and Home Medications Allergies Coded Allergies: Penicillins (Verified Allergy, Unknown, HIVES, 05/19/17) amoxicillin (Verified Allergy, Unknown, HIVES, 05/19/17) cefaclor (Unverified Allergy, Unknown, 04/14/15) clavulanic acid (Verified Allergy, Unknown, HIVES, 05/19/17) levofloxacin (Verified Allergy, Unknown, 08/12/16) oseltamivir (Verified Allergy, Unknown, 11/16/17) Uncoded Allergies: PROMETHAZINE WITH CODEINE (Allergy, Unknown, 10/17/17) Home Medications Acetaminophen with Codeine 1 Each Tablet, 1 EACH PO Q6H PRN for COUGH Prescribed by: SELVIN BLANTON on 09/15/19 5057 Prednisone 20 Mg Tab, 40 MG PO DAILY Prescribed by: YELENA GUTIERREZ on 08/26/19 [id number] Patient Home Medication List Home Medication List Reviewed: Yes Review of Systems Review of Systems Constitutional: no symptoms reported; No chills, No diaphoresis, No fever EENTM: No Symptoms Reported Respiratory: No Symptoms Reported Cardiovascular: No Symptoms Reported Gastrointestinal: See HPI, Abdominal Pain; Denies Constipated, Denies Diarrhea; Nausea; Denies Poor Appetite, Denies Poor Fluid Intake, Denies Vomiting Genitourinary: See HPI, Flank Pain, Hematuria Musculoskeletal: see HPI, back pain Skin: no symptoms reported Psychiatric/Neurological: No Symptoms Reported Endocrine: No Symptoms Reported Hematologic/Lymphatic: No Symptoms Reported Past Yridhdj-Ngigzc-Hasovg Hx Past Med/Social Hx: Reviewed and Corrections made Patient Social History Alcohol Use: Denies Use Recreational Drug Use: No Smoking Status: Never a Smoker 2nd Hand Smoke Exposure: No Recent Foreign Travel: No Contact w/Someone Who Travel: No Recent Hopitalizations: No Immunizations Up To Date Tetanus Booster (TDap): Unknown PED Vaccines UTD: Yes Date of Influenza Vaccine: Sep 12, 2014 Seasonal Allergies Seasonal Allergies: No Past Medical History Surgeries: Yes (URETHRAL DILATION; HYST/BSO 2016) Adenoidectomy, Section, Hysterectomy, Oophorectomy, Orthopedic, Tonsillectomy Respiratory: No Cardiac: No Neurological: No Reproductive Disorders: Yes (UTERINE FIBROIDS, POLYPS, ENDOMETRIOSIS, OVARIAN CYSTS; HYST/BSO 2016) Female Reproductive Disorders: Endometriosis, Ovarian Cyst, Polycystic Ovarian Dis [employer] History: Hysterectomy, IUD Sexually Transmitted Disease: No HIV/AIDS: No Genitourinary: Yes (URETHRAL STRICTURE) Gastrointestinal: No Musculoskeletal: No Endocrine: No HEENT: No Loss of Vision: Denies Hearing Impairment: Denies Cancer: No Psychosocial: Yes Depression Integumentary: Yes Psoriasis Blood Disorders: No Adverse Reaction/Blood Tranf: No Family Medical History Arthritis 19 FATHER, Onset:40's - 19 MOTHER, Onset:30's - Asthma G8 BROTHER, Onset:Infancy Completed stroke 19 MOTHER, Onset:40's - 50 (4 strokes) Diabetes mellitus 19 MOTHER, Onset:40's - 50 Headache disorder 19 MOTHER, Onset:30's - 40 (migraines) Hypercholesterolemia 19 MOTHER, Onset:40's - 50 Hypertension 19 FATHER, Onset:40's - 19 MOTHER, Onset:30's - 40 G8 BROTHER, Onset:Adolescence Severe allergy 19 MOTHER, Onset:Childhood (PCN, EES) G8 BROTHER, Onset:Childhood (PCN) No Family History of: AIDS Abdominal aortic aneurysm Rockcastle's disease Alcoholism Alzheimer's disease Aphasia Cancer of mouth Cardiovascular disease Cataracts Colon cancer Congenital disease Congenital heart disease Coronary thrombosis Cystic fibrosis Deafness or hearing loss Dementia Drug abuse Dysphasia Fibrocystic disease of breast Gastroenteritis Glaucoma Infertility Kidney disease Myocardial infarction Neoplasm Not obtainable due to adoption Osteoporosis Parkinson's disease Prostate cancer Psychosocial problem Respiratory disorder Seizure disorder Thyroid disease Tuberculosis Visual disorder Physical Exam Vital Signs Vital Signs - First Documented 11/13/19 23:31 Temp 36.9 Pulse 86 Resp 18 B/P (MAP) 135/83 (100) Pulse Ox 100 O2 Delivery Room Air Capillary Refill : Height/Weight/BMI Height: 5'3.00" Weight: 200lbs. 0.0oz. 90.818809yy; 30.00 BMI Method:Stated General Appearance: WD/WN, no apparent distress, other (WALKS UPRIGHT AND MOVES WITHOUT DIFFICULTY. DOES NOT APPEAR TO BE IN AND DISCOMFORT OR DISTRESS) HEENT: PERRL/EOMI Neck: normal inspection Respiratory: normal breath sounds, no respiratory distress Cardiovascular: regular rate, rhythm, no murmur Gastrointestinal: normal bowel sounds, soft, no organomegaly, no pulsatile mass; No distended, No guarding, No rebound; tenderness (MILD RIGHT INGUINAL TENDERNESS--PT STATES IT IS ALWAYS SORE. NO MASSES OR HERNIA, OR ADENOPATHY OR SKIN CHANGES TO THE AREA. ); No hernia, No mass Extremities: normal range of motion, non-tender, normal inspection, no pedal edema, no calf tenderness, normal capillary refill Back: normal inspection, no CVA tenderness, no vertebral tenderness Neurologic/Psychiatric: skein yard drier II-XII nml as tested, no motor/sensory deficits, alert, normal mood/affect, oriented x 3 Skin: normal color, warm/dry; No rash; tattoos/piercings (MULTIPLE TATTOOS) Progress/Results/Core Measures Results/Orders Lab Results Laboratory Tests Test 11/13/19 23:30 11/14/19 00:22 Range/Units Urine Color YELLOW Urine Clarity CLEAR Urine pH 7.0 5-9 Urine Specific Munith 1.020 1.016-1.022 Urine Protein NEGATIVE NEGATIVE Urine Glucose (UA) NEGATIVE NEGATIVE Urine Ketones NEGATIVE NEGATIVE Urine Nitrite NEGATIVE NEGATIVE Urine Bilirubin NEGATIVE NEGATIVE Urine Urobilinogen 0.2 < = 1.0 MG/DL Urine Leukocyte Esterase NEGATIVE NEGATIVE Urine RBC (Auto) NEGATIVE NEGATIVE Urine RBC RARE /HPF Urine WBC NONE /HPF Urine Squamous Epithelial Cells 0-2 /HPF Urine Crystals NONE /LPF Urine Bacteria TRACE /HPF Urine Casts NONE /LPF Urine Mucus SMALL H /LPF Urine Culture Indicated NO White Blood Count 9.3 4.3-11.0 10^3/uL Red Blood Count 4.45 4.35-5.85 10^6/uL Hemoglobin 13.4 11.5-16.0 G/DL Hematocrit 40 35-52 % Mean Corpuscular Volume 89 80-99 FL Mean Corpuscular Hemoglobin 30 25-34 PG Mean Corpuscular Hemoglobin Concent 34 32-36 G/DL Red Cell Distribution Width 12.6 10.0-14.5 % Platelet Count 368 130-400 10^3/uL Mean Platelet Volume 10.2 7.4-10.4 FL Neutrophils (%) (Auto) 46 42-75 % Lymphocytes (%) (Auto) 44 12-44 % Monocytes (%) (Auto) 8 0-12 % Eosinophils (%) (Auto) 2 0-10 % Basophils (%) (Auto) 0 0-10 % Neutrophils # (Auto) 4.3 1.8-7.8 X 10^3 Lymphocytes # (Auto) 4.0 1.0-4.0 X 10^3 Monocytes # (Auto) 0.7 0.0-1.0 X 10^3 Eosinophils # (Auto) 0.2 0.0-0.3 10^3/uL Basophils # (Auto) 0.0 0.0-0.1 10^3/uL Sodium Level 141 135-145 MMOL/L Potassium Level 3.6 3.6-5.0 MMOL/L Chloride Level 105 98-107 MMOL/L Carbon Dioxide Level 29 21-32 MMOL/L Anion Gap 7 5-14 MMOL/L Blood Urea Nitrogen 12 7-18 MG/DL Creatinine 0.74 0.60-1.30 MG/DL Estimat Glomerular Filtration Rate > 60 BUN/Creatinine Ratio 16 Glucose Level 71 70-105 MG/DL Calcium Level 9.5 8.5-10.1 MG/DL Corrected Calcium 9.3 8.5-10.1 MG/DL Total Bilirubin 0.3 0.1-1.0 MG/DL Aspartate Amino Transf (AST/SGOT) 17 5-34 U/L Alanine Aminotransferase (ALT/SGPT) 31 0-55 U/L Alkaline Phosphatase 49 40-136 U/L Total Protein 6.8 6.4-8.2 GM/DL Albumin 4.3 3.2-4.5 GM/DL Amylase Level 99 25-125 U/L Lipase 33 8-78 U/L My Orders Orders - WILLIAN MACHADO DO Ua Culture If Indicated (11/13/19 23:38) Ct Abd/Pelvis Wo(Kidney Stone) (11/14/19 00:00) Acute Abd Series (11/14/19 00:00) Amylase (11/14/19 00:00) Cbc With Automated Diff (11/14/19 00:00) Comprehensive Metabolic Panel (11/14/19 00:00) Lipase (11/14/19 00:00) Ondansetron Oral Dissolve Tab (Zofran (11/14/19 01:30) Hyoscyamine Sl Tablet (Levsin Sl Tablet) (11/14/19 01:30) Cyclobenzaprine Tablet (Flexeril Tablet) (11/14/19 01:30) Vital Signs/I&O 11/13/19 11/14/19 23:31 01:34 Temp 36.9 36.9 Pulse 86 86 Resp 18 18 B/P (MAP) 135/83 (100) 130/80 (100) Pulse Ox 100 100 O2 Delivery Room Air Progress Progress Note : Progress Note UNEVENTFUL ER STAY OFFERED SHOTS FOR PAIN, MUSCLE RELAXANT, AND PT DECLINES. Diagnostic Imaging Comments ABDOMEN XRAYS--NO ACUTE PROCESS, FECAL LOADING, C/W CONSTIPATION, PENDING RADIOLOGIST REVIEW CT ABDOMEN/PELVIS--MILD SPLENOMEGALY, OTHERWISE NO ACUTE PROCESS, PER [facility] VIA FAX AT 0111 Reviewed: Reviewed by Me Departure Impression Primary Impression: Abdominal pain Additional Impression: Left flank pain Disposition: HOME, SELF-CARE Condition: Improved Departure-Patient Inst. Referrals: [facility] (PCP) Primary Care Physician JAM THOMPSON APRN (Family) Primary Care Physician Patient Instructions: Acute Abdomen (Belly Pain), Adult (DC), Flank Pain (DC) Add. Discharge Instructions: CLEAR LIQUIDS--WATER, BROTH, JELLO, GATORADE, POPSICLES KEEP YOUR APPOINTMENT TODAY AT [facility] SCHEDULED All discharge instructions reviewed with patient and/or family. Voiced understanding. WILLIAN MACHADO DO Nov 13, 2019 23:39
[2019-11-13 23:45] LABS: BILIRUBIN,URINE NEGATIVE (NEGATIVE); CLARITY,URINE CLEAR; COLOR,URINE YELLOW; GLUCOSE, URINE (UA) NEGATIVE (NEGATIVE); KETONES,URINE NEGATIVE (NEGATIVE); LEUKOCYTE ESTERASE ,URINE NEGATIVE (NEGATIVE); NITRITE,URINE NEGATIVE (NEGATIVE); PROTEIN,URINE NEGATIVE (NEGATIVE)
[2019-11-13 23:54] LABS: BACTERIA,URINE TRACE /HPF; RBC,URINE RARE /HPF; SQUAMOUS EPITHELIAL CELL,UR 0-2 /HPF
[2019-11-14 00:36] LABS: BASOPHILS % (AUTO) 0 % (0-10); EOSINOPHILS # (AUTO) 0.2 10^3/uL (0.0-0.3); EOSINOPHILS % (AUTO) 2 % (0-10); HEMATOCRIT 40 % (35-52); HEMOGLOBIN 13.4 G/DL (11.5-16.0); LYMPHOCYTES % (AUTO) 44 % (12-44); MEAN CORPUSCULAR HEMOGLOBIN 30 PG (25-34); MEAN CORPUSCULAR HGB CONC 34 G/DL (32-36); MEAN CORPUSCULAR VOLUME 89 FL (80-99); MEAN PLATELET VOLUME 10.2 FL (7.4-10.4); MONOCYTES # (AUTO) 0.7 X 10^3 (0.0-1.0); MONOCYTES % (AUTO) 8 % (0-12); NEUTROPHILS # (AUTO) 4.3 X 10^3 (1.8-7.8); NEUTROPHILS % (AUTO) 46 % (42-75); PLATELET COUNT 368 10^3/uL (130-400); RED CELL DISTRIBUTION WIDTH 12.6 % (10.0-14.5); WHITE BLOOD COUNT 9.3 10^3/uL (4.3-11.0)
[2019-11-14 00:53] LABS: ALANINE AMINOTRANSFERASE 31 U/L (0-55); ALBUMIN 4.3 GM/DL (3.2-4.5); ALKALINE PHOSPHATASE 49 U/L (40-136); AMYLASE 99 U/L (25-125); BILIRUBIN,TOTAL 0.3 MG/DL (0.1-1.0); BUN/CREATININE RATIO 16; CALCIUM 9.5 MG/DL (8.5-10.1); CARBON DIOXIDE 29 MMOL/L (21-32); CHLORIDE 105 MMOL/L (98-107); CREATININE SERUM 0.74 MG/DL (0.60-1.30); GFR ESTIMATED > 60; GLUCOSE 71 MG/DL (70-105); LIPASE 33 U/L (8-78); POTASSIUM 3.6 MMOL/L (3.6-5.0); SODIUM 141 MMOL/L (135-145); TOTAL PROTEIN 6.8 GM/DL (6.4-8.2)
[2019-11-14] MEDS ORDERED: HYOSCYAMINE 0.125 MG (LEVSIN) TAB PO ONE (01:30)
[2019-11-14] MEDS ORDERED: CYCLOBENZAPRINE 10 MG (FLEXERIL) TAB PO SCH (01:30)
[2019-11-14] MEDS ORDERED: ONDANSETRON 4 MG (ZOFRAN) ORAL DISSOLVE TAB PO ONE (01:30)
[2019-11-14 01:34] VITALS: BP 130/80
--- NOTE | 2019-11-14 06:17 | Diagnostic Imaging Report ---
INDICATION: Constipation. Comparison with 08/12/2016 abdomen. FINDINGS: The lungs are clear. Upright and supine abdomen shows normal stool and gas pattern throughout the colon. There is no evidence of constipation. There is no impacted stool in the rectal vault. The stomach and small bowel are not distended. There is no organomegaly. No pathologic calcification. IMPRESSION: Normal abdomen series. Dictated by: Dictated on workstation # [id number]
--- NOTE | 2019-11-14 06:19 | Diagnostic Imaging Report ---
PROCEDURE: CT urinary tract, rule out kidney stone. TECHNIQUE: Multiple contiguous axial images were obtained through the abdomen and pelvis without the use of intravenous contrast. Auto Exposure Controls were utilized during the CT exam to meet ALARA standards for radiation dose reduction. INDICATION: Left flank pain. FINDINGS: Kidneys show no evidence of obstruction. There are no calculi. Kidneys are symmetrical with no perinephric fluid. Ureters are not dilated. The bladder appears normal. Uterus is absent. There are no pelvic masses. Bowel gas pattern is normal without evidence of constipation. The appendix is absent. Stomach and small bowel are not distended. Lung bases are clear. Liver appears normal. Gallbladder and bile ducts are normal. Pancreas and spleen are normal. Adrenal glands are normal. No bony abnormalities. IMPRESSION: Normal abdomen series without contrast. These findings are concordant with the preliminary report. Dictated by: Dictated on workstation # [id number]
== END 2019-11-14 01:35 | disposition home or self-care (01) ==
LOC: EDUNIT# 23:15 → ER 23:17
DX: R10.9 Unspecified abdominal pain (principal); Z88.0 Allergy status to penicillin; Z88.1 Allergy status to other antibiotic agents; Z88.8 Allergy status to other drugs, medicaments and biological substances; Z79.52 Long term (current) use of systemic steroids; Z82.49 Family history of ischemic heart disease and other diseases of the circulatory system
CPT/HCPCS: 36415; 74022; 74176; 80053; 81000; 82150; 83690; 85025

== ENCOUNTER 2020-01-02 23:23 | Emergency (ER) | payer SELFPAY ==
[~2020-01-02] VITALS: Ht 160 cm; Wt 91.0 kg
[2020-01-02] MEDS ORDERED: LACTATED RINGERS 1,000 ML IV ONE (23:31)
[2020-01-03 00:32] LABS: BASOPHILS % (AUTO) 0 % (0-10); EOSINOPHILS # (AUTO) 0.2 10^3/uL (0.0-0.3); EOSINOPHILS % (AUTO) 2 % (0-10); HEMATOCRIT 44 % (35-52); HEMOGLOBIN 14.7 G/DL (11.5-16.0); LYMPHOCYTES # (AUTO) 3.4 X 10^3 (1.0-4.0); LYMPHOCYTES % (AUTO) 40 % (12-44); MEAN CORPUSCULAR HEMOGLOBIN 30 PG (25-34); MEAN CORPUSCULAR HGB CONC 34 G/DL (32-36); MEAN CORPUSCULAR VOLUME 90 FL (80-99); MEAN PLATELET VOLUME 10.4 FL (7.4-10.4); MONOCYTES # (AUTO) 0.6 X 10^3 (0.0-1.0); MONOCYTES % (AUTO) 7 % (0-12); NEUTROPHILS # (AUTO) 4.3 X 10^3 (1.8-7.8); NEUTROPHILS % (AUTO) 51 % (42-75); PLATELET COUNT 407 10^3/uL (130-400); RED CELL DISTRIBUTION WIDTH 12.9 % (10.0-14.5); WHITE BLOOD COUNT 8.6 10^3/uL (4.3-11.0)
[2020-01-03 00:50] LABS: INR 0.9 (0.8-1.4); PROTHROMBIN TIME PATIENT 12.1 SEC (12.2-14.7)
[2020-01-03 00:50] LABS: BILIRUBIN,URINE NEGATIVE (NEGATIVE); CLARITY,URINE SL CLOUDY; COLOR,URINE YELLOW; GLUCOSE, URINE (UA) NEGATIVE (NEGATIVE); KETONES,URINE TRACE (NEGATIVE); LEUKOCYTE ESTERASE ,URINE NEGATIVE (NEGATIVE); NITRITE,URINE NEGATIVE (NEGATIVE); PH,URINE 6.5 (5-9); PROTEIN,URINE NEGATIVE (NEGATIVE)
[2020-01-03 01:02] LABS: ALANINE AMINOTRANSFERASE 22 U/L (0-55); ALBUMIN 4.2 GM/DL (3.2-4.5); ALKALINE PHOSPHATASE 64 U/L (40-136); BILIRUBIN,TOTAL 0.3 MG/DL (0.1-1.0); BUN/CREATININE RATIO 11; CALCIUM 9.3 MG/DL (8.5-10.1); CARBON DIOXIDE 26 MMOL/L (21-32); CHLORIDE 104 MMOL/L (98-107); CREATININE SERUM 0.75 MG/DL (0.60-1.30); GFR ESTIMATED > 60; GLUCOSE 109 MG/DL (70-105); MAGNESIUM 2.1 MG/DL (1.6-2.4); POTASSIUM 3.8 MMOL/L (3.6-5.0); SODIUM 142 MMOL/L (135-145)
[2020-01-03 01:07] LABS: AMPHETAMINE SCREEN, URINE NEGATIVE (NEGATIVE); BACTERIA,URINE MODERATE /HPF; BENZODIAZEPINES SCREEN URINE NEGATIVE (NEGATIVE); COCAINE SCREEN URINE NEGATIVE (NEGATIVE); METHAMPHETAMINE SCREEN URINE S NEGATIVE (NEGATIVE); WBC,URINE 0-2 /HPF
[2020-01-03 01:08] LABS: BARBITURATE SCREEN URINE NEGATIVE (NEGATIVE); CANNABINOID SCREEN, URINE NEGATIVE (NEGATIVE); METHADONE STAT NEGATIVE (NEGATIVE); OPIATE SCREEN URINE NEGATIVE (NEGATIVE); OXYCODONE STAT NEGATIVE (NEGATIVE); PROPOXYPHENE STAT NEGATIVE (NEGATIVE); TRICYCLIC ANTIDEPRESSANTS SCRE NEGATIVE (NEGATIVE)
[2020-01-03] MEDS ORDERED: AZIT500T PO (01:17)
[2020-01-03] MEDS ORDERED: GUAI1TBM19 PO (01:17)
[2020-01-03] MEDS ORDERED: NITR-65 PO (01:17)
[2020-01-03] MEDS ORDERED: BENZ100C18 PO (01:17)
--- NOTE | 2020-01-03 01:17 | ED Cough/URI ---
General Chief Complaint: Cough/Cold/Flu Symptoms Stated Complaint: POSS PNEUMONIA Nursing Triage Note: TO ED VIA POV AND AMBULATORY TO ROOM 10 WITH COVID-19 AIRBORNE/DROPLET/CONTACT PRECAUTIONS INITIATED. PT STATES SHE HAS HAD COUGH AND FEVER SINCE LAST TUESDAY WHEN SHE PRESENTED TO [facility] AND FLU TEST WAS NEGATIVE, SHE IS ALLERGIC TO TAMIFLU AND WAS TOLD TO USE OTC SUPPORTIVE MEDICATIONS. TODAY HAS CONTINUED FEVER, COUGH, AND SOA WITH EXERTION AND WENT BACK TO [facility] WHERE SHE WAS AGAIN TESTED FOR FLU WHICH WAS NEGATIVE AND THEN SWABBED FOR COVID 19. 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 Sepsis Screen: Possible Severe Sepsis Risk Source: patient History of Present Illness Date Seen by Provider: Jan 02, 2020 Time Seen by Provider: 23:32 Initial Comments PT ARRIVES VIA POV FROM HOME PT STATES SHE HAS HAD COUGH, FEVER AND SHORTNESS OF BREATH SINCE Tuesday12/27/19 COUGH IS NON-PRODUCTIVE SHORTNESS OF BREATH IS ONLY WITH WALKING FOR A LITTLE DISTANCE TEMP UP TO 102.3--TEMP WAS TAKEN THIS AM. HAS NOT CHECKED IT SINCE THEN. TOOK TYLENOL AT 2100 TONIGHT NO CHEST PAIN NO SWELLING NO HEADACHE OR BODY ACHES NO GI SYMPTOMS STATES SHE WENT TO [facility] LAST TUESDAY FOR ROUTINE APPOINTMENT, BUT THEN HAD THESE COMPLAINTS, AND WAS TESTED FOR FLU AND IT WAS NEGATIVE--STATES SHE WAS TOLD THAT SHE "HAD THE FLU" BUT IS ALLERGIC TO TAMIFLU, SO NO RX WAS GIVEN STATES SHE WENT BACK TO [facility] YESTERDAY-HAD A SCHEDULED APPOINTMENT, AND BECAUSE SHE FELT HER SYMPTOMS WERE GETTING WORSE--SHE STATES THEY MADE HER STAY IN HER VEHICLE, AND DID TESTING FOR FLU, WHICH WAS NEGATIVE, SO SHE WAS TESTED FOR COVID-19--TEST RESULTS ARE NOT KNOWN AT THIS TIME PT STATES SHE HAS NOT HAD ANY KNOWN EXPOSURES TO FLU OR CORONAVIRUS/COVID 19. NO TRAVEL. STATES HER CHILD AND MALE S.O. ARE NOT ILL. PT STATES SHE HAD PNEUMONIA IN SEPTEMBER AND THIS FEELS THE SAME. NO OTHER HISTORY OF RESPIRATORY PROBLEMS PT IS NON-SMOKER, BUT HAS HAD SECOND HAND SMOKE WITH HER PARENTS. PCP: [facility] Allergies and Home Medications Allergies Coded Allergies: Penicillins (Verified Allergy, Unknown, HIVES, 05/19/17) amoxicillin (Verified Allergy, Unknown, HIVES, 05/19/17) cefaclor (Unverified Allergy, Unknown, 04/14/15) clavulanic acid (Verified Allergy, Unknown, HIVES, 05/19/17) levofloxacin (Verified Allergy, Unknown, 08/12/16) oseltamivir (Verified Allergy, Unknown, 11/16/17) Uncoded Allergies: PROMETHAZINE WITH CODEINE (Allergy, Unknown, 10/17/17) Home Medications Acetaminophen with Codeine 1 Each Tablet, 1 EACH PO Q6H PRN for COUGH Prescribed by: SELVIN BLANTON on 09/15/19 1427 Azithromycin 500 Mg Tablet, 500 MG PO DAILY Prescribed by: WILLIAN MACHADO on 01/03/20116 Benzonatate 100 Mg Capsule, 100 MG PO TID Prescribed by: WILLIAN MACHADO on 01/03/20116 Guaifenesin/Dextromethorphan 1 Each Tbmp.12hr, 1 EACH PO BID Prescribed by: WILLIAN MACHADO on 01/03/20116 Nitrofurantoin Monohyd/M-Cryst 100 Mg Capsule, 1 TAB PO BID Prescribed by: WILLIAN MACHADO on 01/03/20116 Prednisone 20 Mg Tab, 40 MG PO DAILY Prescribed by: YELENA GUTIERREZ on 08/26/19 1645 Patient Home Medication List Home Medication List Reviewed: Yes Review of Systems Review of Systems Constitutional: see HPI, fever EENTM: no symptoms reported; No ear pain, No nose congestion, No throat pain Respiratory: see HPI, cough, dyspnea on exertion; No orthopnea, No phlegm, No wheezing Cardiovascular: no symptoms reported; No chest pain Gastrointestinal: no symptoms reported; No abdominal pain, No diarrhea, No loss of appetite, No nausea, No vomiting Genitourinary: no symptoms reported : No (S/P HYSTERECTOMY) Musculoskeletal: no symptoms reported Skin: no symptoms reported Psychiatric/Neurological: No Symptoms Reported; Denies Headache Hematologic/Lymphatic: No Symptoms Reported Immunological/Allergic: no symptoms reported Past Dueaiev-Tzabht-Djsyep Hx Past Med/Social Hx: Reviewed and Corrections made Patient Social History Alcohol Use: Denies Use Recreational Drug Use: No Smoking Status: Never a Smoker 2nd Hand Smoke Exposure: Yes Recent Foreign Travel: No Contact w/Someone Who Travel: No Recent Infectious Disease Expo: No Recent Hopitalizations: No Physical Abuse: No Sexual Abuse: No Mistreated: No Fear: No Immunizations Up To Date Tetanus Booster (TDap): Unknown PED Vaccines UTD: Yes Date of Influenza Vaccine: Jul 10, 2019 Seasonal Allergies Seasonal Allergies: No Past Medical History Surgeries: Yes (URETHRAL DILATION) Adenoidectomy, Section, Hysterectomy, Oophorectomy, Orthopedic, Tonsillectomy Respiratory: No Cardiac: No Neurological: No Reproductive Disorders: Yes (UTERINE FIBROIDS, POLYPS, ENDOMETRIOSIS, OVARIAN CYSTS; HYST/BSO 2016) Female Reproductive Disorders: Endometriosis, Ovarian Cyst, 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, 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 Sexually Transmitted Disease: No HIV/AIDS: No Genitourinary: Yes (URETHRAL STRICTURE) Gastrointestinal: No Musculoskeletal: No Endocrine: No HEENT: No Loss of Vision: Denies Hearing Impairment: Denies Cancer: No Psychosocial: Yes (POST DEPRESSION) Anxiety, Depression Integumentary: Yes Psoriasis Blood Disorders: No Adverse Reaction/Blood Tranf: No Family Medical History Arthritis 19 FATHER, Onset:40's - 50 19 MOTHER, Onset:30's - 40 Asthma G8 BROTHER, Onset:Infancy Completed stroke 19 MOTHER, Onset:40's - 50 (4 strokes) Diabetes mellitus 19 MOTHER, Onset:40's - 50 Headache disorder 19 MOTHER, Onset:30's - 40 (migraines) Hypercholesterolemia 19 MOTHER, Onset:40's - 50 Hypertension 19 FATHER, Onset:40's - 50 19 MOTHER, Onset:30's - 40 G8 BROTHER, Onset:Adolescence Severe allergy 19 MOTHER, Onset:Childhood (PCN, EES) G8 BROTHER, Onset:Childhood (PCN) No Family History of: AIDS Abdominal aortic aneurysm Tippah's disease Alcoholism Alzheimer's disease Aphasia Cancer of mouth Cardiovascular disease Cataracts Colon cancer Congenital disease Congenital heart disease Coronary thrombosis Cystic fibrosis Deafness or hearing loss Dementia Drug abuse Dysphasia Fibrocystic disease of breast Gastroenteritis Glaucoma Infertility Kidney disease Myocardial infarction Neoplasm Not obtainable due to adoption Osteoporosis Parkinson's disease Prostate cancer Psychosocial problem Respiratory disorder Seizure disorder Thyroid disease Tuberculosis Visual disorder Physical Exam Vital Signs - First Documented 01/02/20 01/03/20 23:45 02:10 Temp 36.7 Pulse 107 Resp 18 B/P (MAP) 141/74 (96) Pulse Ox 98 O2 Delivery Room Air Capillary Refill : Less Than 3 Seconds Height: 5'3.00" Weight: 200lbs. 0.0oz. [id number]; 35.00 BMI Method:Stated General Appearance: WD/WN, no apparent distress, other (SMILING, TALKS IN FULL SENTENCES, SITTING -STYLE, WALKS UPRIGHT AND MOVES WITHOUT DIFFICULTY. DOES NOT APPEAR ILL OR TO BE IN ANY DISCOMFORT OR DISTRESS. NO COUGH NOTED AT ANY TIME. O2 SAT 100% ON ROOM AIR, IMMEDIATELY AFTER WALKING INTO ER AND NO DYSPNEA NOTED. ) HEENT: PERRL/EOMI, normal ENT inspection, TMs normal, pharynx normal, other (NO NASAL CONGESTION) Neck: non-tender, full range of motion, supple, normal inspection Respiratory: normal breath sounds, no respiratory distress, no accessory muscle use Cardiovascular: normal peripheral pulses, regular rate, rhythm, no edema, no JVD, no murmur Gastrointestinal: normal bowel sounds, non tender, soft Extremities: normal inspection, no pedal edema, no calf tenderness, normal capillary refill Neurologic/Psychiatric: justice of the peace II-XII nml as tested, no motor/sensory deficits, alert, normal mood/affect, oriented x 3 Skin: normal color, warm/dry; No rash Focused Exam Lactate Level 01/03/20 00:10: Lactic Acid Level 1.73 Lactic Acid Level Laboratory Tests Test 01/03/20 00:10 Lactic Acid Level 1.73 MMOL/L (0.50-2.00) Progress/Results/Core Measures Suspected Sepsis Recent Fever Within 48 Hours: Yes Infection Criteria Present: Suspected New Infection New/Unexplained Altered Menta: No Sepsis Screen: Possible Severe Sepsis Risk SIRS Temperature: Pulse: 107 Respiratory Rate: 18 Laboratory Tests 01/03/20 00:10: White Blood Count 8.6 Blood Pressure 141 /74 Mean: 96 01/03/20 00:10: Lactic Acid Level 1.73 Laboratory Tests 01/03/20 00:10: Creatinine 0.75, INR Comment 0.9, Platelet Count 407H, Total Bilirubin 0.3 Results/Orders Lab Results Laboratory Tests Test 01/03/20 00:10 01/03/20 00:32 Range/Units White Blood Count 8.6 4.3-11.0 10^3/uL Red Blood Count 4.86 4.35-5.85 10^6/uL Hemoglobin 14.7 11.5-16.0 G/DL Hematocrit 44 35-52 % Mean Corpuscular Volume 90 80-99 FL Mean Corpuscular Hemoglobin 30 25-34 PG Mean Corpuscular Hemoglobin Concent 34 32-36 G/DL Red Cell Distribution Width 12.9 10.0-14.5 % Platelet Count 407 H 130-400 10^3/uL Mean Platelet Volume 10.4 7.4-10.4 FL Neutrophils (%) (Auto) 51 42-75 % Lymphocytes (%) (Auto) 40 12-44 % Monocytes (%) (Auto) 7 0-12 % Eosinophils (%) (Auto) 2 0-10 % Basophils (%) (Auto) 0 0-10 % Neutrophils # (Auto) 4.3 1.8-7.8 X 10^3 Lymphocytes # (Auto) 3.4 1.0-4.0 X 10^3 Monocytes # (Auto) 0.6 0.0-1.0 X 10^3 Eosinophils # (Auto) 0.2 0.0-0.3 10^3/uL Basophils # (Auto) 0.0 0.0-0.1 10^3/uL Prothrombin Time 12.1 L 12.2-14.7 SEC INR Comment 0.9 0.8-1.4 Activated Partial Thromboplast Time 27 24-35 SEC Sodium Level 142 135-145 MMOL/L Potassium Level 3.8 3.6-5.0 MMOL/L Chloride Level 104 98-107 MMOL/L Carbon Dioxide Level 26 21-32 MMOL/L Anion Gap 12 5-14 MMOL/L Blood Urea Nitrogen 8 7-18 MG/DL Creatinine 0.75 0.60-1.30 MG/DL Estimat Glomerular Filtration Rate > 60 BUN/Creatinine Ratio 11 Glucose Level 109 H 70-105 MG/DL Lactic Acid Level 1.73 0.50-2.00 MMOL/L Calcium Level 9.3 8.5-10.1 MG/DL Corrected Calcium 9.1 8.5-10.1 MG/DL Magnesium Level 2.1 1.6-2.4 MG/DL Total Bilirubin 0.3 0.1-1.0 MG/DL Aspartate Amino Transf (AST/SGOT) 17 5-34 U/L Alanine Aminotransferase (ALT/SGPT) 22 0-55 U/L Alkaline Phosphatase 64 40-136 U/L Total Protein 7.0 6.4-8.2 GM/DL Albumin 4.2 3.2-4.5 GM/DL Serum Test, Qualitative NEGATIVE NEGATIVE Monoscreen NEGATIVE NEGATIVE Group A Streptococcus Screen NEGATIVE NEGATIVE Urine Color YELLOW Urine Clarity SL CLOUDY Urine pH 6.5 5-9 Urine Specific [place] 1.025 H 1.016-1.022 Urine Protein NEGATIVE NEGATIVE Urine Glucose (UA) NEGATIVE NEGATIVE Urine Ketones TRACE H NEGATIVE Urine Nitrite NEGATIVE NEGATIVE Urine Bilirubin NEGATIVE NEGATIVE Urine Urobilinogen 1.0 < = 1.0 MG/DL Urine Leukocyte Esterase NEGATIVE NEGATIVE Urine RBC (Auto) NEGATIVE NEGATIVE Urine RBC NONE /HPF Urine WBC 0-2 /HPF Urine Squamous Epithelial Cells 10-25 H /HPF Urine Crystals NONE /LPF Urine Bacteria MODERATE H /HPF Urine Casts NONE /LPF Urine Mucus MODERATE H /LPF Urine Culture Indicated CULTURE PENDING Urine Opiates Screen NEGATIVE NEGATIVE Urine Oxycodone Screen NEGATIVE NEGATIVE Urine Methadone Screen NEGATIVE NEGATIVE Urine Propoxyphene Screen NEGATIVE NEGATIVE Urine Barbiturates Screen NEGATIVE NEGATIVE Ur Tricyclic Antidepressants Screen NEGATIVE NEGATIVE Urine Phencyclidine Screen NEGATIVE NEGATIVE Urine Amphetamines Screen NEGATIVE NEGATIVE Urine Methamphetamines Screen NEGATIVE NEGATIVE Urine Benzodiazepines Screen NEGATIVE NEGATIVE Urine Cocaine Screen NEGATIVE NEGATIVE Urine Cannabinoids Screen NEGATIVE NEGATIVE Micro Results Microbiology 01/03/20 Influenza Types A,B Antigen (KAVEH) - Final, Complete My Orders Orders - WILLIAN MACHADO DO Ed Iv/Invasive Line Start (01/02/20 23:31) Ekg Tracing (01/02/20 23:31) O2 (01/02/20 23:31) Monitor-Rhythm Ecg Trace Only (01/02/20 23:31) Cbc With Automated Diff (01/02/20 23:31) Comprehensive Metabolic Panel (01/02/20 23:31) Blood Culture (01/02/20 23:31) Sputum Culture (01/02/20 23:31) Urinalysis (01/02/20 23:31) Urine Culture (01/02/20 23:31) Protime With Inr (01/02/20 23:31) Partial Thromboplastin Time (01/02/20 23:31) Ed Iv/Invasive Line Start (01/02/20 23:31) Ed Iv/Invasive Line Start (01/02/20 23:31) Vital Signs Adult Sepsis Patie Q15M (01/02/20 23:31) O2 (01/02/20 23:31) Remove Rings In Anticipation O (01/02/20 23:31) Lactic Acid Analyzer (01/02/20 23:31) Influenza A And B Antigens (01/02/20 23:31) Drug Screen Stat (Urine) (01/02/20 23:31) Hcg,Qualitative Serum (01/02/20 23:31) Magnesium (01/02/20 23:31) Monotest (01/02/20 23:31) Rapid Strep A Screen (01/02/20 23:31) Ed Iv/Invasive Line Start (01/02/20 23:31) Lactated Ringers (Lr 1000 Ml Iv Solution (01/02/20 23:31) Chest 1 View, Ap/Pa Only (01/03/20 00:01) Azithromycin Tablet (Zithromax Tablet) (01/03/20 02:00) Medications Given in ED Current Medications Medications Dose Ordered Sig/Taras Route Start Time Stop Time Status Last Admin Dose Admin Azithromycin 500 mg ONCE ONCE PO 01/03/20 02:00 01/03/20 02:01 DC 01/03/20 02:05 500 MG Lactated Ringer's 1,000 ml @ 0 mls/hr Q0M ONCE IV 01/02/20 23:31 01/02/20 23:35 DC 01/03/20 00:19 999 MLS/HR Vital Signs/I&O 01/02/20 01/02/20 01/03/20 01/03/20 23:45 23:45 01:13 02:10 Temp 36.7 36.7 36.0 Pulse 107 77 88 Resp 18 18 18 B/P (MAP) 141/74 (96) 107/69 115/84 (82) Pulse Ox 98 O2 Delivery Room Air Room Air Room Air Room Air Capillary Refill : Less Than 3 Seconds Blood Pressure Mean: 96 Progress Note : Progress Note PPE DONNED AND FOLLOWED ALL COVID-19/CORONAVIRUS PRECAUTIONS THROUGHOUT ENTIRE ER STAY NO COUGH NOTED AT ANY TIME NO DYSPNEA AT ANY TIME NO FEVER AT ANY TIME ALL VITALS STABLE O2 SATS REMAIN 100% ON ROOM AIR AT ALL TIMES PT ADVISED THAT SHE AND ENTIRE HOUSEHOLD REMAIN ON SELF-QUARANTINE FOR THE NEXT 14 DAYS. ECG Initial ECG Impression Date: Jan 03, 2020 Initial ECG Impression Time: 00:27 Initial ECG Rate: 79 Initial ECG Rhythm: Normal Sinus Initial ECG Impression: Normal Diagnostic Imaging Comments CXR--NO ACUTE PROCESS, PENDING RADIOLOGIST REVIEW Reviewed: Reviewed by Me Departure Impression Primary Impression: Upper respiratory infection Additional Impression: Urinary tract infection Disposition: 01 HOME, SELF-CARE Condition: Stable Departure-Patient Inst. Referrals: [facility] (PCP) Primary Care Physician JAM THOMPSON APRN (Family) Primary Care Physician Patient Instructions: COVID19, Urinary Tract Infection, Adult (DC), Viral Upper Respiratory Infection, Adult (DC) Add. Discharge Instructions: LOTS OF CLEAR LIQUIDS TYLENOL NEEDED FOR PAIN OR FEVER OVER 101 SELF QUARANTINE YOURSELF AND ALL HOUSEHOLD MEMBERS FOR THE NEXT 14 DAYS All discharge instructions reviewed with patient and/or family. Voiced understanding. Scripts Guaifenesin/Dextromethorphan (Mucinex Dm ER 1,200-60 mg Tab) 1 Each Tbmp.12hr 1 EACH PO BID, #20 EA Prov: WILLIAN MACHADO DO 01/03/20 Benzonatate (TESSALON PERLES) 100 Mg Capsule 100 MG PO TID, #30 CAP Prov: WILLIAN MACHADO DO 01/03/20 Nitrofurantoin Monohyd/M-Cryst (Macrobid 100 mg Capsule) 100 Mg Capsule 1 TAB PO BID, #20 CAP Prov: WILLIAN MACHADO DO 01/03/20 Azithromycin (Zithromax) 500 Mg Tablet 500 MG PO DAILY for 5 Days, #5 TAB Prov: WILLIAN MACHADO DO 01/03/20 WILLIAN MACHADO DO Jan 03, 2020 01:17
--- OUTSIDE RECORDS SUMMARY | 2020-01-03 01:20 | XMS REPORT ---
Author Author Lamiecco. Organization [facility] Address [address] [address] Care Team Providers Care Engraver Picture Name Role Phone ANA WATSON Unavailable NO, LOCAL PHYSICIAN Unavailable Unavailable СВЕТЛАНА DIETZ Unavailable СВЕТЛАНА DIETZ Unavailable SANDRA KAPLAN Unavailable CHAMBERS, RASHARD R SUPERVISOR SEWING ROOM Unavailable AMILCAR SHERMAN Unavailable CHAMBERS, RASHARD Unavailable CHAMBERS, RASHARD Unavailable CHAMBERS, RASHARD Unavailable WATSONANA Unavailable CHAMBERS, RASHARD Unavailable CHAMBERS, RASHRAD Unavailable WATSON, ANA Unavailable CHAMBERS, RASHARD Unavailable BARRETT CHEN Unavailable [facility] Unavailable [phone] CHAMBERS, RASHARD Unavailable REX Webster Unavailable CHAMBERS, RASHARD Unavailable CHAMBERS, RASHARD Unavailable TAMELA WATSONISTIN Unavailable CHAMBERS, RASHARD Unavailable CHAMBERS, RASHARD Unavailable CHAMBERS, RASHARD Unavailable CHAMBERS, RASHARD Unavailable SANDRA KAPLAN MD Unavailable Unavailable SELVIN BLANTON SUPERVISOR SEWING ROOM Unavailable Unavailable JAIMIE GARRISON, KRIS Julien Unavailable Unavailable JOHN GARRISON, DANIELLE Milian Unavailable Unavailable JAM THOMPSON Unavailable Unavailable CHAMBERS, RASHARD R SUPERVISOR SEWING ROOM Unavailable Unavailable [facility] PCP [phone] YELENA GUTIERREZ Unavailable Unavailable NICOLLE LINN Unavailable Unavailable SELVIN BLANTON APRN Unavailable Unavailable NIKO GARRISON, COCO Young Unavailable Unavailable Unavailable Unavailable WILLIAN MACHADO DO Unavailable Unavailable Allergies Normalized Allergy Reported Date of Reaction(s) Care Provider Facility Allergy Type classification allergen Allergy Onset Drug Allergy Clavulanate Clavulanate 05-19-2017 - Urticaria [facility] (2 sources.) [place] [address] ([address]) DA (19 Unclassified clavulanic 05-19-2017 - HIVES SANDRA Not Available sources.) delores KAPLAN ([address]) Drug allergy promethazine promethazine 10-24-2017 - rash, rash [facility] (4 sources.) Translations: [address] [place] [address] [ [facility], [facility]] [place] ([address]) Medications Current Medications Medication Ingredient Drug Dose Dates Status Sig Sig Care Class(es) (Normalized) (Original) Provid er erythromyci erythromyci Macrolide, 02-11-20 Active no Erythr omycin no n 0.005 n Macrolide 18 - information 5 MG/GM name mg/mg Translation Antimicrobi 02-18-20 Ophthalmic 2 (no ophthalmic s: [ al 18 times a day phone) ointment (1 Erythromyci apply 1/2 source.) n 5 MG/GM] inch ribbon to left eye 12h February, February, 07 days Active Completed/Discontinued Medications Medication Ingredient Drug Dose Dates Status Sig Sig Care Class(es) (Normalized) (Original) Provid er acetaminoph Acetaminoph Opioid 09-15-20 Complete no Acetamin ophe no en 300 mg / en / Agonist 19 - d information n With nam e codeine Codeine 09-22-20 Codeine (no phosphate 19 Discontinued phone) 30 mg oral 1 ORAL Every tablet (1 6 Hours as source.) needed for Cough 14 7 September 15, 2019 2:27pm September 22, 2019 no Bcp no 08-12-20 Complete no Bcp no information information 16 d information Disconti nued name (2 1 ORAL Daily (no sources.) August phone) 2015 no no 09-04-20 Complete no no information Control information 14 d information Contro l name (2 Discontinued (no sources.) 1 ORAL Daily phone) September 04, 2014 no Docusate no 04-17-20 Complete no Docusate no information Sodium information 15 - d information Sodium name (2 05-22-20 Discontinued (no sources.) 15 100 ORAL phone) Twice A Day 60 April 17, 2015 7:25am May 22, 2015 nitrofurant NITROFURANT Nitrofuran 08-30-20 Complete no Nitr ofuranto no oin, OIN, Antibacteri 14 - d information in name macrocrysta MACROCRYSTA al 09-04-20 Macrocrystal (no ls 25 mg / LS / 14 s phone) nitrofurant Nitrofurant Discontinued oin, oin, 1 ORAL Twice monohydrate Monohydrate A Day 14 75 mg oral November capsule (2013 sources.) 10:38pm September 04, 2014 no Nitrofurant no 12-16-19 Complete no Nitrofuranto no information oin/Nitrofu information 15 - d information in /Nitrofura name (2 ran Mac 04-14-20 n Mac (no sources.) 15 Discontinued phone) 100 ORAL Twice A Day 7 December 15, 2014 12:55am April 14, 2015 no Oxycodone no 07-07-20 Complete no Oxycodone no information Hcl/Acetami information 15 - d information Hc l/Acetamin name (4 nophen 08-12-20 ophen (no sources.) 16 Discontinued phone) 1-2 ORAL Every 4HRS as needed for Pain 60 July 07, 2015 7:04am August 12, 2016 06-18-2015 Completed no Oxycodon no name - inform e (no 08-12-2016 ation Hcl/Acet phone) aminophe n Disconti nued 1-2 ORAL Every 4HRS as needed for Pain 60 2014 12:53pm August 12, 2016 no no 12-03-19 Complete no no information Vits information 12 d information Vits name (2 W-Ca,Fe,Fa( W-Ca,Fe,Fa( (no sources.) <1MG) Discontinued phone) 1 ORAL December 03, 2011 Problems Active Problems Problem Normalized Date of Normalized Normalized Provider Fac ility Classification Problem(s) Problem Problem Problem Sta tus Onset/Resoluti Duration on Residual Acquired Episodic Active NICOLLE LINN [facility] codes; absence of Janie unclassified both cervix Hospital - (6 sources.) and uterus [place] ([address]) Residual Acquired Episodic Active SELVIN BLANTON [facility] Via codes; absence of Janie unclassified other organs Hospital - (7 sources.) [place] ([address]) Other upper Allergic Chronic Active RASHARD CHAMBERS Communi ty respiratory rhinitis due [address] [place] [address] disease (2 to pollen of [facility] sources.) Translations: [place] ([address]) [ - Seasonal allergic rhinitis due to pollen J30.1] Other eye Bilateral Episodic Active [facility] a disorders (1 subconjunctiva [facility] Janie source.) l hemorrhage [address] [place] [address] ([address]) Unclassified Body mass Chronic Active RASHARD Devineu nity (2 sources.) index (BMI) [address] [place] [address] 36.0-36.9, of [place] adult [place] ([address]) Translations: [ - Body mass index (BMI) of 36.0-36.9 in adult Z68.36] Other lower Cough Episodic Active SELVIN BLANTON [facility] respiratory [place]ie disease (10 Hospital - sources.) [place] ([address]) Other lower Cough Episodic Active [facility] [place] ia respiratory [facility] Janie disease (2 [address] Hospital sources.) ([address]605) Other skin Eruption Episodic Active [facility] a disorders (4 [facility] Janie sources.) [address] [place] [address] ([address]) Essential Essential Chronic Active YELENA GUTIERREZ [facility] Via hypertension (primary) Janie (3 sources.) hypertension [facility] [place] ([address]) Residual Family history 11-15-2019 - Episodic Active SELVIN VALDIVIA [facility] Via codes; of ischemic Janie unclassified heart disease Hospital - (4 sources.) and other [place] diseases of ([address]) the circulatory system Esophageal Gastro-esophag Chronic Active SANDRA Not Av ailable disorders (3 eal reflux [place] , ([address]05) sources.) disease MD without esophagitis Other group home 11-15-2019 - Episodic Active WILLIAN MACHADO , DO [facility] Via aftercare (2 (current) use Janie sources.) of systemic Hospital - steroids [place] ([address]) Other Obesity Chronic Active RASHARD CHAMBERS [facility] nutritional; Translations: [address] [place] [address] endocrine; and [ Other of [facility] metabolic obesity due to [place] ([address]) disorders (1 excess source.) calories] Other Obesity, Chronic Active RASHARD CHAMBERS Community nutritional; unspecified [address] [place] [address] endocrine; and Translations: of [facility] metabolic [ - Obesity [place] ([address]) disorders (2 (BMI 30-39.9) sources.) E66.9, - Obesity (BMI 30.0-34.9) E66.9] Other Other obesity Chronic Active RASHARD CHAMBERS [facility] nutritional; due to excess [address] [place] [address] endocrine; and calories of [facility] metabolic Translations: [place] ([address]) disorders (1 [ - Other source.) obesity due to excess calories E66.09] Other female Other Chronic Active SANDRA Not Availa ble genital specified [place] , ([address]) disorders (5 abnormal MD sources.) uterine and vaginal bleeding Other and Personal Episodic Active PETER BLANTON [facility] Via unspecified history of Janie benign colonic polyps Hospital - neoplasm (4 [place] sources.) (60677) Other skin Personal Episodic Active PETER BLANTON [facility] Via disorders (6 history of Janie sources.) diseases of Hospital - the skin and [place] subcutaneous (11218) tissue Residual Personal Episodic Active PETER BLANTON [facility] Via codes; history of Janie unclassified other Hospital - (3 sources.) complications [place] of , ([address]) childbirth and the puerperium Other female Personal Episodic Active RASHARD CHAMBERS Not Av ailable genital history of (25559) disorders (4 other diseases sources.) of the female genital tract Translations: [ - History of PCOS Z87.42] Contraceptive Presence of Episodic Active NICOLLE KAVEH [facility] Via and (intrauterine) Janie procreative contraceptive Hospital - management (15 device [place] sources.) ([address]) Other Psoriasis, Chronic Active RASHARD CHAMBERS Communi ty inflammatory unspecified [address] [place] [address] condition of Translations: of [facility] skin (1 [ - Psoriasis [place] ([address]) source.) L40.9] Other skin Rash and other Episodic Active DANIELLE Not Av ailable disorders (17 nonspecific MD JOHN (75532) sources.) skin eruption Hemorrhage Threatened Episodic Active [facility] [place] during miscarriage in [facility] ; first [address] [place] [address] abruptio trimester (68624) placenta; placenta previa (4 sources.) Other ear and Unspecified Episodic Active RASHARD CHAMBERS [facility] [address] [facility] disorders (1 noninfective of [facility] source.) otitis [place] ([address]) externa, left ear Translations: [ - Acute otitis externa of left ear, unspecified type H60.502] Past or Other Problems Problem Normalized Date of Normalized Normalized Provider Fac ility Classification Problem(s) Problem Problem Problem Sta tus Onset/Resoluti Duration on Deficiency and Anemia, Episodic Completed SANDRA Not Avai lable other anemia unspecified [place] , (33583) (2 sources.) Inflammatory Female pelvic Episodic Completed SANDRA Not A vailable diseases of peritoneal [place] , ([address]60) female pelvic adhesions MD organs (3 (postinfective sources.) ) Benign Intramural Episodic Completed SANDRA Not Availab le neoplasm of leiomyoma of [place] , (54542) uterus (3 uterus MD sources.) Mood disorders Major no information no information SANDRA Not Available (20 sources.) depressive [place] , (40113) disorder, single episode, unspecified Other Other long Episodic Completed SANDRA Not Availab le aftercare (3 term (current) [place] , (08015) sources.) drug therapy Abdominal pain Pelvic and no information no information SANDRA Not Available (5 sources.) perineal pain [place] (02648) Ovarian cyst Unspecified no information no information SANDRA Not Available (6 sources.) ovarian cyst, [place] , (01335) left side Translations: [ UNSPECIFIED OVARIAN CYST, RIGHT SIDE] Procedures Procedure Normalized Procedure Procedure Result Performer Facility Date 10-25-2017 Heterophile antibodies no information no name (no p andrea) [facility] 10-25-2017 [place] ([address]) - 10-25-2017 10-24-2017 Influenza assay no information no name (no phone) [facility] w/optic [facility] 10-24-2017 [place] ([address]) - 10-24-2017 10-25-2017 Strep a assay w/optic no information no name (no ph one) [facility] 10-25-2017 [place] ([address]) - 10-25-2017 Immunizations Normalized Immunization Date Notes Care Provider Facili ty Immunization tetanus toxoid, 04-16-2015 no information no name [facility] diphtheria [facility] toxoid, and [facility] acellular pertussis (14825) vaccine, adsorbed varicella virus 04-24-2019 no information no name [facility] vaccine [facility] (73297) varicella virus 03-19-2019 no information no name [facility] vaccine [facility] (10328) no information 08-26-2019 - no information [facility] [place] [facility] 08-26-2019 [address] [facility] (72795) Results Test Name Value Interpretation Reference Range Date Time Fa cility (Normalized) (Normalized) (Medline Reference) strep a (in house) on null STREP A (IN 417e11 (no code) [facility]) [facility] (53500) STREP A (IN 2018 11 30 (no code) [facility]) [facility] (91445) mono test (in house) on null MONO TEST (IN 319864 (no code) [facility]) [facility] (24116) MONO TEST (IN 2018 07 (no code) [facility]) [facility] (84174) influenza a & b (in house) on null INFLUENZA A & B [id number] (no code) [facility] (IN HOUSE) [facility] (99416) INFLUENZA A & B 12/20/2019 (no code) [facility] (IN HOUSE) [facility] (05658) No panel information on null Date injected 04/03/19 (no code) [facility] (53383) INDURATION (mm) 0 (no code) [facility] (67232) Lot # [id number] (no code) [facility] (76435) Lot # [id number] (no code) [facility] (72322) Read by no information (no code) [facility] (15776) Site LFA (no code) [facility] (63042) Site 03/19/19~12:35~RF (no code) [facility] (79969) Time Injected 1051 (no code) [facility] Healt [facility] (39508) Time Read 05/29~AWoods~04/05 (no code) [facility] Hea lth /~11:30pm [facility] (74313) Time Read 04/18~KS~03/21/19 (no code) [facility] ~1:10pm [facility] (57787) No panel information on 2019-12-27 Control no information (no code) [facility] (51694) Exp date 07/2022 (no code) [facility] (15260) KET 12/2020~clear~ye (no code) [facility] llow~none~negati [facility] ve~negative~nega [facility] tive (41866) Lot # [id number] (no code) [facility] (62714) Lot # [id number] (no code) [facility] (79072) pH (Bld) 5.5 [pH] (no code) 7.38 - 7.42 [pH] [facility] (72972) Protein (U) no information (no code) 0 - 20 mg/dL [facility] [Mass/Vol] [facility] (65449) SG 1.025 (no code) [facility] (74530) URO 0.2 (no code) [facility] (60850) No panel information on 2019-11-12 Bacteria SEE NOTE (no code) [facility]alt identified Cx [facility] Nom (U) [facility] (13226) BLO no information (no code) [facility] Healt h [facility] (93598) KET 10/30~clear~dark (no code) [facility] yellow~none~neg~ [facility] neg~neg [facility] (79746) DARLEEN neg~neg (no code) [facility] () Lot # [id number] (no code) [facility] () pH (Bld) 7.5 [pH] (no code) 7.38 - 7.42 [pH] [facility] () Protein (U) no information (no code) 0 - 20 mg/dL [facility] Health [Mass/Vol] [facility] () SG 1.015 (no code) [facility] () URO 0.2 (no code) [facility] () No panel information on 2019-04-11 TCA [id number]~11/29 (no code) [facility] 20~+~NEGATIVE~NE [facility] GATIVE~NEGATIVE~ [facility] NEGATIVE~NEGATIV () E~NEGATIVE~NEGAT TAMICA~NEGATIVE~NEG ATIVE~NEGATIVE~N EGATIVE~NEGATIVE ~NEGATIVE No panel information on 2019-03-13 Albumin 4.3 g/dL (N) 3.4 - 5.4 g/dL [facility] [Mass/Vol] [facility] () Albumin/Globulin 1.8 {ratio} (N) 1 - 2.5 {ratio} [facility] [Mass ratio] [facility] () ALP [Catalytic 56 U/L (N) 44 - 147 U/L [facility] activity/Vol] [facility] () ALT [Catalytic 13 U/L (N) 4 - 40 U/L [facility] ealth activity/Vol] [facility] () AST [Catalytic 13 U/L (N) 10 - 34 U/L [facility] Health activity/Vol] [facility] () Bilirubin 0.2 mg/dL (N) 0.1 - 1.2 mg/dL [facility] [Mass/Vol] [facility] () Calcium 9.5 mg/dL (N) 8.5 - 10.2 mg/dL [facility] [Mass/Vol] [facility] (75023) Chloride 105 mmol/L (N) 95 - 106 mmol/L [facility] [Moles/Vol] [facility] (60190) Cholesterol 174 mg/dL (N) 180 - 200 mg/dL [facility] [Mass/Vol] [facility] (70930) Cholesterol in 60 mg/dL (N) [facility] HDL [Mass/Vol] [facility] (81503) Cholesterol in 93 mg/dL (N) 0 - 100 mg/dL [facility] LDL [Mass/Vol] [facility] (35023) Cholesterol non 114 mg/dL (N) [facility] HDL [Mass/Vol] [facility] (64890) Cholesterol.tota 2.9 {ratio} (N) [facility] l/Cholesterol in [facility] HDL [Mass ratio] [facility] (24050) CO2 [Moles/Vol] 29 mmol/L (N) 23 - 29 mmol/L [facility] (82009) Creatinine 0.66 mg/dL (N) [facility] [Mass/Vol] [facility] (88341) GFR/1.73 sq M 142 (N) 90 - 120 [facility] predicted among mL/min/{1.73_m2} mL/min/{1.73_m2} [facility] [place] MDRD [facility] (S/P/Bld) [Vol (27032) rate/Area] GFR/1.73 sq 123 (N) 90 - 120 [facility] M.predicted MDRD mL/min/{1.73_m2} mL/min/{1.73_m2} [facility] (S/P/Bld) [Vol [facility] rate/Area] (43222) Globulin (S) 2.4 g/dL (N) 2 - 3.5 g/dL [facility] ealth [Mass/Vol] [facility] (39358) Glucose 94 mg/dL (N) 60 - 125 mg/dL [facility] [Mass/Vol] [facility] (84502) Potassium 4.1 mmol/L (N) 3.7 - 5.2 mmol/L [facility] [Moles/Vol] [facility] (60124) Protein 6.7 g/dL (N) 6.4 - 8.3 g/dL [facility] [Mass/Vol] [facility] (51594) Sodium 139 mmol/L (N) 135 - 145 mmol/L [facility] [Moles/Vol] [facility] (25087) Triglyceride 115 mg/dL (N) 0 - 150 mg/dL [facility] [Mass/Vol] [facility] (11464) TSH Qn 1.40 m[IU]/L (N) 0.4 - 4 m[IU]/L [facility] (39855) Urea nitrogen 10 mg/dL (N) 7 - 20 mg/dL [facility] [Mass/Vol] [facility] (28323) Urea NOT APPLICABLE (no code) [facility] nitrogen/Creatin [facility] [place] [facility] (97573) No panel information on 2017-10-25 Exp date no information (no code) [facility] (50415) Exp date 2018 04 (no code) [facility] (04811) Lot # [id number] (no code) [facility] (39293) No panel information on 2017-10-24 Control no information (no code) [facility] (49587) Exp date 12/20/2019 (no code) [facility] (71295) Lot # [id number] (no code) [facility] (51072) No panel information on 2016-12-23 Bacteria Note (no code) 12-23-2016 Not Available identified Aer 10:35-0400 (98742) cx Nom (Genital specimen) No panel information on 2016-12-22 [employer] Comment (no code) 12-22-2016 Not Availa ble stain Nom 16:36-0400 (69022) (Cvx/Vag) [ID] Diagnosis ICD Comment (no code) 12-22-2016 Not Availabl e code 16:36-0400 (54174) [Identifier] Microscopic . (no code) 12-22-2016 Not Available observation 16:360400 (76220) Other stain Nom (Unsp spec) Note: Comment (no code) 12-22-2016 Not Available 16:360400 (13791) Pathology report Comment (no code) 12-22-2016 Not Avail able final diagnosis 16:360400 (76135) Narrative Statement of Comment (no code) 12-22-2016 Not Available adequacy Cyto 16:360400 (29585) stain (Cvx/Vag) [Interp] no information Comment (no code) 12-22-2016 Not Availab le 16:360 (18272) No panel information on 2016-12-01 Magnesium 2.0 mg/dL (no code) 1.7 - 2.2 mg/dL 12-01-2016 Not Av ailable [Mass/Vol] 09:330500 (74489) No panel information on 2016-11-20 Albumin 4.0 g/dL (no code) 3.4 - 5.4 g/dL 11-20-2016 Not Magdalene ilable [Mass/Vol] 09:0 (40996) Albumin/Globulin 1.8 {ratio} (no code) 1 - 2.5 {ratio} 7 Not Available [Mass ratio] 09:0500 (95308) ALP [Catalytic 50 U/L (no code) 44 - 147 U/L 11-20-2016 Not Available activity/Vol] 09:330500 (44182) ALT [Catalytic 16 U/L (no code) 4 - 40 U/L 11-20-2016 Not Av ailable activity/Vol] 09:0500 (26065) AST [Catalytic 12 U/L (no code) 10 - 34 U/L 11-20-2016 Not A vailable activity/Vol] 09:0500 (58306) Basophils (Bld) 0.0 10*3/uL (no code) 0 - 0.3 10*3/uL 11-20-2016 Not Available [#/Vol] 07:100500 (11948) Basophils/100 0 % (no code) 0.5 - 1 % 02-11-2017 Not Avai lable WBC (Bld) 07: (94917) Bilirubin 0.3 mg/dL (no code) 0.1 - 1.2 mg/dL 11-20-2016 Not Av ailable [Mass/Vol] 09:050 (76635) Calcium 9.5 mg/dL (no code) 8.5 - 10.2 mg/dL 11-20-2016 Not A vailable [Mass/Vol] 09:0500 (93122) Chloride 101 mmol/L (no code) 95 - 106 mmol/L 11-20-2016 Not A vailable [Moles/Vol] 09: (99306) Cholesterol 139 mg/dL (no code) 180 - 200 mg/dL 11-20-2016 Not Available [Mass/Vol] 09: (82505) Cholesterol in 46 mg/dL (no code) 11-20-2016 Not Availab le HDL [Mass/Vol] 09:330500 (33841) Cholesterol in 70 mg/dL (no code) 0 - 100 mg/dL 11-20-2016 Not Available LDL [Mass/Vol] 09:330500 (43839) Cholesterol in 23 mg/dL (no code) 11-20-2016 Not Availab le VLDL [Mass/Vol] 09:0500 (51314) CO2 [Moles/Vol] 23 mmol/L (no code) 23 - 29 mmol/L 11-20-2016 N ot Available 09: (40154) Creatinine 0.56 mg/dL (L) 11-20-2016 Not Available [Mass/Vol] 09:0500 (74891) Eosinophils 0.1 10*3/uL (no code) 0.05 - 0.5 11-20-2016 Not Magdalene ilable (Bld) [#/Vol] 10*3/uL 07: (99501) Eosinophils/100 2 % (no code) 1 - 4 % 11-20-2016 Not Av ailable WBC (Bld) 07: (12411) Erythrocyte 13.2 % (no code) 11.6 - 14.6 % 11-20-2016 Not Av ailable distribution 07: (79109) width (RBC) [Ratio] GFR/1.73 sq M 153 (no code) 90 - 120 11-20-2016 Not Avai lable predicted among mL/min/{1.73_m2} mL/min/{1.73_m2} 09: (55333) blacks MDRD (S/P/Bld) [Vol rate/Area] GFR/1.73 sq M 133 (no code) 90 - 120 11-20-2016 Not Avai lable predicted among mL/min/{1.73_m2} mL/min/{1.73_m2} 09: (19138) non-blacks MDRD (S/P/Bld) [Vol rate/Area] Globulin (S) 2.2 g/dL (no code) 2 - 3.5 g/dL 11-20-2016 Not Av ailable [Mass/Vol] 09: () Glucose 83 mg/dL (no code) 60 - 125 mg/dL 11-20-2016 Not Magdalene ilable [Mass/Vol] 09: (53372) HbA1c (Bld) 5.4 % (no code) 0 - 5.7 % 11-20-2016 Not Availa ble [Mass fraction] 10: (27482) Hematocrit (Bld) 41.1 % (no code) 36.1 - 50.3 % 11-20-2016 N ot Available [Volume 07: () fraction] Hemoglobin (Bld) 13.9 g/dL (no code) 12.1 - 17.2 g/dL 11-20-2016 Not Available [Mass/Vol] 07: (14771) Immature 0.0 10*3/uL (no code) 0 - 0.2 10*3/uL 11-20-2016 Not Available granulocytes 07: (19144) (Bld) [#/Vol] Immature 0 % (no code) 0 - 0.5 % 11-20-2016 Not Availabl e granulocytes/100 07: (65635) WBC (Bld) Insulin Qn 18.5 u[IU]/mL (no code) 2.6 - 24.9 11-20-2016 Not Av ailable u[IU]/mL 09:45-0500 ([id number]) Lymphocytes 2.6 10*3/uL (no code) 0.9 - 2.9 11-20-2016 Not Avai lable (Bld) [#/Vol] 10*3/uL 07:10-0500 ([id number]) Lymphocytes/100 34 % (no code) 20 - 40 % 11-20-2016 Not Av ailable WBC (Bld) 07:100500 (28840) MCH (RBC) 30.0 pg (no code) 27 - 31 pg 11-20-2016 Not Availab le [Entitic mass] 07:100500 (64248) MCHC (RBC) 33.8 g/dL (no code) 32 - 36 g/dL 11-20-2016 Not Avai lable [Mass/Vol] 07:100500 (59021) MCV (RBC) 89 fL (no code) 80 - 100 fL 11-20-2016 Not Availa ble [Entitic vol] 07:100500 (72671) Monocytes (Bld) 0.6 10*3/uL (no code) 0.3 - 0.9 11-20-2016 Not Available [#/Vol] 10*3/uL 07:100500 (95207) Monocytes/100 8 % (no code) 2 - 8 % 11-20-2016 Not Avai lable WBC (Bld) 07:100500 (31350) Neutrophils 4.3 10*3/uL (no code) 1.7 - 7 10*3/uL 11-20-2016 No t Available (Bld) [#/Vol] 07:100500 (37179) Neutrophils/100 56 % (no code) 40 - 60 % 11-20-2016 Not Av ailable WBC (Bld) 07:100500 (23139) Platelets (Bld) 392 10*3/uL (H) 150 - 450 11-20-2016 Not Available [#/Vol] 10*3/uL 07:100500 (16107) Potassium 4.2 mmol/L (no code) 3.7 - 5.2 mmol/L 11-20-2016 Not Available [Moles/Vol] 09:10-0500 (30574) Protein 6.2 g/dL (no code) 6.4 - 8.3 g/dL 11-20-2016 Not Magdalene ilable [Mass/Vol] 09:100500 (83033) RBC (Bld) 4.63 10*6/uL (no code) 4.2 - 6.1 11-20-2016 Not Avail able [#/Vol] 10*6/uL 07:10050 (03492) Sodium 142 mmol/L (no code) 135 - 145 mmol/L 11-20-2016 Not Available [Moles/Vol] 09:050 (23894) Triglyceride 115 mg/dL (no code) 0 - 150 mg/dL 11-20-2016 Not A vailable [Mass/Vol] 09:100500 (59532) TSH Qn 1.530 (no code) 11-20-2016 Not Available 10:500500 (41948) Urea nitrogen 7 mg/dL (no code) 7 - 20 mg/dL 11-20-2016 Not A vailable [Mass/Vol] 09:050 (33222) Urea 13 mg/mg (no code) 6 - 22 mg/mg 11-20-2016 Not Avail able nitrogen/Creatin 09:0500 (26238) ine [Mass ratio] WBC (Bld) 7.7 10*3/uL (no code) 3.5 - 10.5 11-20-2016 Not Avail able [#/Vol] 10*3/uL 07:0500 (09337) Vital Signs Vital Sign Value Interpretation Reference Date Time Care Prov ider Facility (Normalized) (Normalized) Range BMI (Body Mass 35.86 kg/m2 (no code) 15 - 25 kg/m2 05-25-2018 [facility] Community Index) 11:00-0400 [id number] [facility] ([id number]) BMI (Body Mass 36.25 kg/m2 (no code) 15 - 25 kg/m2 02-10-2018 [facility] Community Index) 15:40-[address] [place] [address] ([id number]) BMI (Body Mass 36.36 kg/m2 (no code) 15 - 25 kg/m2 10-25-2017 [facility] Community Index) 11:55-0500 [place] [phone] [facility] ([id number]) BMI (Body Mass 36.81 kg/m2 (no code) 15 - 25 kg/m2 10-24-2017 Ngozi KRAMER [facility] Index) 17:40-[address] [place] [address] ([id number]) Body 98.8 [degF] (no code) 97.8 - 99.0 05-25-2018 [facility] Temperature [degF] 11:00-[address] [place] [address] ([id number]) Body 98.8 [degF] (no code) 97.8 - 99.0 02-10-2018 [facility] Temperature [degF] 15:40-[address] [place] [address] ([id number]) Body 98.7 [degF] (no code) 97.8 - 99.0 10-25-2017 [facility] Temperature [degF] 13:00-[address] [place] [address] ([id number]) Body 98.4 [degF] (no code) 97.8 - 99.0 10-25-2017 [facility] Temperature [degF] 11:55-0500 [place] [phone] [facility] ([id number]) Body 97.4 [degF] (no code) 97.8 - 99.0 10-24-2017 [facility] Temperature [degF] 17:40-[address] [place] [address] ([id number]) Height 157.48 cm (no code) cm 05-25-2018 [facility] 11:00-[address] [place] [address] ([id number]) Height 157.48 cm (no code) cm 02-10-2018 [facility] 15:40-[address] [place] [address] ([id number]) Height 157.48 cm (no code) cm 10-25-2017 [facility] 11:55-[address] [place] [address] ([id number]) Height 157.48 cm (no code) cm 10-24-2017 [facility] 17:40-[address] [place] [address] ([id number]) Weight 88.95 kg (no code) kg 05-25-2018 [facility] 11:00-[address] [place] [address] ([id number]) Weight 89.9 kg (no code) kg 02-10-2018 [facility] 15:40-[address] [place] [address] ([id number]) Weight 90.18 kg (no code) kg 10-25-2017 ANA barrett 11:55-05[address] [place] [phone] [place] [address] ([id number]) Weight 91.31 kg (no code) kg 10-24-2017 [facility] 17:40-[address] [place] [address] ([id number]) Interventions No Information Plan of Treatment Normalized Care Care Detail Care Activity Date Care Provider F acility Activity Patient Education no information no information [facility] [place] [facility] [address] [place] [address] ([id number]) Patient referral no information no information [facility] [place] [address] [place] [address] ([id number]) Goals Patient Goal Desired Goal no information no information Social History Normalized Code Original Code Date Value no information no information 07-07-2015 Denies Use no information no information 02-08-2013 No Sex Assigned At Sex Assigned At 1995 - Female no information no information 09-15-2019 Denies Functional Status The data below is from unstructured sources Query Response Date Da rded Patient Orientation Person Place Time Situation Normal For Age April 17, 2015 2:29pm No Functional Status information available Mental Status The data below is from unstructured sourcesNo Mental Status Information AvailableNo Mental Status Information AvailableNo Mental Status Information Available Encounters Encounter Normalized Encounter Encounter Diagnosis Care Provi sabi Organization Date Type 11-13-2019 Emergency department no information WILLIAN MACHADO DO (no [facility] - patient visit phone) [facility] 11-13-2019 (no phone) 09-15-2019 Emergency department no information (no phone) [facility] - patient visit Hospital (no phone) 09-15-2019 09-15-2019 Emergency department no information no name (no mikala ne) no organization name - patient visit (no phone) 09-15-2019 08-26-2019 Emergency department no information (no phone) [facility] - patient visit Hospital (no phone) 08-26-2019 08-26-2019 Emergency department no information no name (no mikala ne) no organization name - patient visit (no phone) 08-26-2019 11-16-2017 Emergency department no information no name (no mikala ne) no organization name - patient visit (no phone) 11-16-2017 10-16-2017 Emergency department no information no name (no mikala ne) no organization name - patient visit (no phone) 10-16-2017 09-08-2017 Emergency department no information no name (no mikala ne) no organization name - patient visit (no phone) 09-08-2017 09-04-2017 Emergency department no information no name (no mikala ne) no organization name - patient visit (no phone) 09-04-2017 03-16-2017 Emergency department no information no name (no mikala ne) no organization name - patient visit (no phone) 03-16-2017 10-22-2016 Emergency department no information no name (no mikala ne) no organization name - patient visit (no phone) 10-22-2016 NEGATED Patient encounter no information no name (no phone) no organization name 02-10-2018 (no phone) 11-16-2017 Patient encounter no information no name (no phone) no organization name (no phone) 10-25-2017 Patient encounter no information no name (no phone) no organization name (no phone) 10-24-2017 Patient encounter no information no name (no phone) no organization name (no phone) 09-08-2017 Patient encounter no information no name (no phone) no organization name (no phone) 12-27-2019 Patient encounter no information [facility]PS[facility] (no phone) [facility] (no phone) 11-13-2019 Patient encounter no information WILLIAN MACHADO DO (no [facility] procedure phone) [facility] (no phone) 11-12-2019 Patient encounter no information (no phone) Pending sale to [facility] procedure [facility] (no phone) 05-01-2019 Patient encounter no information no name (no phone) no organization name procedure (no phone) 04-24-2019 Patient encounter no information no name (no phone) no organization name procedure (no phone) 04-11-2019 Patient encounter no information no name (no phone) no organization name procedure (no phone) 04-10-2019 Patient encounter no information no name (no phone) no organization name procedure (no phone) 04-05-2019 Patient encounter no information no name (no phone) no organization name procedure (no phone) 04-03-2019 Patient encounter no information no name (no phone) no organization name procedure (no phone) 04-03-2019 Patient encounter no information no name (no phone) no organization name procedure (no phone) 03-19-2019 Patient encounter no information no name (no phone) no organization name procedure (no phone) 03-19-2019 Patient encounter no information no name (no phone) no organization name procedure (no phone) 03-13-2019 Patient encounter no information no name (no phone) no organization name procedure (no phone) 05-27-2017 Patient encounter no information no name (no phone) no organization name - procedure (no phone) 05-27-2017 03-16-2017 Patient encounter no information no name (no phone) no organization name procedure (no phone) 11-26-2016 Patient encounter no information no name (no phone) no organization name procedure (no phone) no information Encounter for dental no name (no phone) no or ganization name examination and (no phone) cleaning without abnormal findings no information Encounter for no name (no phone) no organiza tion name preprocedural (no phone) laboratory examination Medical Equipment The data below is from unstructured sourcesNo Medical Equipment Information availableNo Medical Equipment Information availableNo Medical Equipment Information available Payers No Information Evaluation note Note Type Note Facility Evaluation No Assessments Information Available A scension note [facility] ([id number]) Advance Directives Directive Response Recor ded Date/Time Advance Directives No 12:23am Health Care Power of Human Resources Office Assistant No 08/12/16 12:23am Organ Donor No 08/12/16 12:23am Resuscitation Status Full Code 08/12/16 12:23am Directive Response Recor ded Date/Time Advance Directives No 4:52pm Health Care Power of Human Resources Office Assistant No 09/11/16 4:52pm Organ Donor No 09/11/16 4:52pm Resuscitation Status Full Code 09/11/16 4:52pm Directive Response Recor ded Date/Time Advance Directives No 7:33pm Health Care Power of Human Resources Office Assistant No 09/04/14 7:33pm Organ Donor Yes 09/04/14 7:33pm Resuscitation Status Full Code 09/04/14 7:33pm Directive Response Recor ded Date/Time Advance Directives No 2:55pm Health Care Power of Human Resources Office Assistant No 05/22/15 2:55pm Organ Donor No 05/22/15 2:55pm Resuscitation Status Full Code 05/22/15 2:55pm Directive Response Recor ded Date/Time Advance Directives No 8:22pm Health Care Power of Human Resources Office Assistant No 08/29/14 8:22pm Organ Donor Yes 08/29/14 8:22pm Resuscitation Status Full Code 08/29/14 8:22pm Directive Response Recor ded Date/Time Advance Directives No 5:03pm Health Care Power of Human Resources Office Assistant No 04/14/15 5:03pm Organ Donor No 04/14/15 5:03pm Resuscitation Status Full Code 04/14/15 5:03pm Directive Response Recor ded Date/Time Advance Directives No 11:45pm Health Care Power of Human Resources Office Assistant No 12/14/14 11:45pm Organ Donor Yes 12/14/14 11:45pm Resuscitation Status Full Code 12/14/14 11:45pm Directive Response Recor ded Date/Time Advance Directives No 6:20am Health Care Power of Human Resources Office Assistant No 07/07/15 6:20am Organ Donor No 07/07/15 6:20am Resuscitation Status Full Code 07/07/15 6:20am Directive Response Recor ded Date/Time Advance Directives No 1:13pm Health Care Power of Human Resources Office Assistant No 05/19/17 1:13pm Organ Donor No 05/19/17 1:13pm Resuscitation Status Full Code 05/19/17 1:13pm Directive Response Recor ded Date/Time Advance Directives No 11:45am Health Care Power of Human Resources Office Assistant No 05/27/17 11:45am Organ Donor No 05/27/17 11:45am Resuscitation Status Full Code 05/27/17 11:45am Directive Response Recor ded Date/Time Advance Directives No 9:05pm Health Care Power of Human Resources Office Assistant No 10/16/17 9:05pm Organ Donor No 10/16/17 9:05pm Resuscitation Status Full Code 10/16/17 9:05pm Directive Response Recor ded Date/Time Advance Directives No 6:27pm Health Care Power of Human Resources Office Assistant No 09/04/17 6:27pm Organ Donor No 09/04/17 6:27pm Resuscitation Status Full Code 09/04/17 6:27pm Directive Response Recor ded Date/Time Advance Directives No 6:27pm Health Care Power of Human Resources Office Assistant No 09/04/17 6:27pm Organ Donor No 09/04/17 6:27pm Directive Response Recor ded Date/Time Advance Directives No 10:05am Health Care Power of Human Resources Office Assistant No 11/16/17 10:05am Organ Donor No 11/16/17 10:05am Resuscitation Status Full Code 11/16/17 10:05am Advance Directive Response Recorded Date/Time Advance Directives No No 2018 4:16pm Health Care Power of Human Resources Office Assistant No August 26, 2019 4:16pm Organ Donor No August 26, 2019 4:16pm Resuscitation Status Full Code August 26, 2019 4:16pm Advance Directive Response Recorded Date/Time Advance Directives No No 2018 4:16pm Health Care Power of Human Resources Office Assistant No August 26, 2019 4:16pm Organ Donor No August 26, 2019 4:16pm Discharge Instructions No hospital discharge instructions.No hospital discharge instructions.No hospital discharge instructions.No hospital discharge instructions.No hospital discharge instructions. Patient Instructions Physician Instructions New, Converted or Re-Newed RX: RX on Chart Plan of Care/Instructions/FU: as directed Activity as Tolerated: No Discharge Diet: No Restrictions Return to The Hospital For: as directed Other Inst to Patient Follow Up Appt: RTC 1 week for incision check. Call to make follow up appt. for patient in 4 weeks. Wound Care: Remove neel, apply benzoin and steri strips. Activity Per routine post instructions. Diet as tolerated Patient may shower or tub bathe as desired. Continue home meds Care Plan Patient Instructions:: as directed No hospital discharge instructions. Patient Instructions Physician Instructions New, Converted or Re-Newed RX: RX on Chart Plan of Care/Instructions/FU: As directed Activity as Tolerated: No Discharge Diet: No Restrictions Return to The Hospital For: As directed Other Inst to Patient Follow Up Appt: Return to clinic Tuesday, July 09, 2015 in the a.m. for IUD placement Call to make follow up appt. for patient in 1 weeks for suture removal. Activity: Rest for 24 hours, than as tolerated. Wound Care: May remove Band-Aid tomorrow. Replace as desired. Keep incisions clean and dry. Wash daily with soap and water. Diet: As tolerated-Clear Liquids only if nauseated. Tomorrow, may shower or tub bathe as desired. No driving for 24 hours, no alcoholic beverages for 24 hours, and nothing per vagina (no tampons, douching, or intercoarse) for 2 weeks. Patient to return to the clinic as soon as possible for: Temperature greater than 101F, Severe Pain, Foul discharge from incision or vagina, Excessive Bleeding (more than a period). Care Plan Patient Instructions:: As directed No hospital discharge instruction information available.No hospital discharge instruction information available.No hospital discharge instruction information available.No hospital discharge instruction information available.No hospital discharge instruction information available.No hospital discharge instruction information available. Chief Complaint and Reason for Visit Chief Complaint Respiratory Problems Reason for Visit [id number] Chief Complaint Eye Problems Reason for Visit [id number] Additional Source Comments This clinical document has been generated using [employer] software that has been certified by the Office of the National Coordinator for Health Information Technology (ONC 15.99.04.3023.Diam.31.00.0.425388) and the National Committee for [employer] (NCQA, as an eMeasure certified technology). FOR RECORDS PERTAINING TO PATIENTS WHO ARE OR HAVE BEEN ENROLLED IN A CHEMICAL D EPENDENCY/SUBSTANCE ABUSE PROGRAM, SOME INFORMATION MAY BE OMITTED. This clinica l summary was aggregated from multiple sources. Caution should be exercised in using it in the provision of clinical care. This summary normalizes information from multiple sources, and as a consequence, information in this document may ma terially change the coding, format and clinical context of patient data. In rakesh tion, data may be omitted in some cases. CLINICAL DECISIONS SHOULD BE BASED ON T PRIMARY CLINICAL RECORDS. [employer] provides no warranty or guara ntee of the accuracy or completeness of information in this document.The followi information is based on time limited clinical information UNRECOGNIZED CONTENT PROVIDED BELOW FOR UNRECOGNIZED SECTION MEDICAL (GENERAL) HISTORY Type Description Date Medical History depression Medical History PCOS (Polycystic Ova ry Syndrome) Medical History endometriosis Medical History fibroids and Polyps Medical History Family history of he art disease Medical History History of PCOS Medical History Family history of CVA Surgical History dilatation and cure ttage x2 Surgical History tonsillectomy and a denoidectomy Surgical History section Surgical History hysteroscopy Surgical History urethra stretched Surgical History Glass in foot remov ed as a child Surgical History states 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 Pt states she is happy with her current medication. jian
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
[2020-01-03] MEDS ORDERED: AZITHROMYCIN 250 MG TAB (ZITHROMAX) PO ONE (02:00)
[2020-01-03 02:10] VITALS: BP 115/84
--- NOTE | 2020-01-03 05:46 | Diagnostic Imaging Report ---
INDICATION: Shortness of air COMPARISON: 11/14/2019 FINDINGS: Single frontal view of the chest demonstrates normal heart size and pulmonary vascularity. The lungs are well aerated and clear. No large pleural effusion or pneumothorax is seen. The visualized osseous structures show no acute abnormalities. IMPRESSION: 1. No acute cardiopulmonary process. Dictated by: Dictated on workstation # [id number]
== END 2020-01-03 02:30 | disposition home or self-care (01) ==
LOC: EDUNIT# 23:23 → ER 23:26
DX: J06.9 Acute upper respiratory infection, unspecified (principal); N39.0 Urinary tract infection, site not specified; F41.9 Anxiety disorder, unspecified; F32.9 Major depressive disorder, single episode, unspecified; L40.9 Psoriasis, unspecified; Z90.710 Acquired absence of both cervix and uterus; Z90.722 Acquired absence of ovaries, bilateral; Z90.89 Acquired absence of other organs
CPT/HCPCS: 36415; 71045; 80053; 80306; 81000; 83605; 83735; 84703; 85025; 85610; 85730; 86308; 87040; 87088; 87430; 87635; 87804; 93005; 93041

== ENCOUNTER 2020-06-21 18:40 | Emergency (ER) | payer SELFPAY ==
[~2020-06-21] VITALS: Ht 157 cm; Wt 92.0 kg
[~2020-06-21 18:40] MED LIST changes: +AZIT500T PO; +BENZ100C18 PO; +GUAI1TBM19 PO; -OXYC-465 PO; +OXYC-556 PO
--- NOTE | 2020-06-21 19:31 | ED General ---
General Chief Complaint: Respiratory Problems Stated Complaint: SOB Nursing Triage Note: Pt here with dizziness, n/v and cough; diagnosed with Covid on Tuesday. Nursing Sepsis Screen: No Definite Risk History of Present Illness Date Seen by Provider: Jun 21, 2020 Time Seen by Provider: 19:31 Initial Comments 25-year-old female presents with generalized malaise, nausea, vomiting, cough. Patient reports that she has known COVID positive test. That she is had di fficulty keeping anything down due to her nausea vomiting. Now she stands up she gets a little bit dizzy. She denies any fevers or chills. She has a mild cough with some occasional shortness of breath. Patient presents today due to the worsening nausea vomiting and not being able eat or drink. Patient denies abdominal pain. Allergies and Home Medications Allergies Coded Allergies: Penicillins (Verified Allergy, Unknown, HIVES, 05/19/17) amoxicillin (Verified Allergy, Unknown, HIVES, 05/19/17) cefaclor (Unverified Allergy, Unknown, 04/14/15) clavulanic acid (Verified Allergy, Unknown, HIVES, 05/19/17) levofloxacin (Verified Allergy, Unknown, 08/12/16) oseltamivir (Verified Allergy, Unknown, 11/16/17) Uncoded Allergies: PROMETHAZINE WITH CODEINE (Allergy, Unknown, 10/17/17) Home Medications Acetaminophen with Codeine 1 Each Tablet, 1 EACH PO Q6H PRN for COUGH Prescribed by: SELVIN BLANTON on 09/15/19 1427 Azithromycin 500 Mg Tablet, 500 MG PO DAILY Prescribed by: WILLIAN MACHADO on 01/03/20116 Benzonatate 100 Mg Capsule, 100 MG PO TID Prescribed by: WILLIAN MACHADO on 01/03/20116 Guaifenesin/Dextromethorphan 1 Each Tbmp.12hr, 1 EACH PO BID Prescribed by: WILLIAN MACHADO on 01/03/20116 Nitrofurantoin Monohyd/M-Cryst 100 Mg Capsule, 1 TAB PO BID Prescribed by: WILLIAN MACHADO on 01/03/20116 Prednisone 20 Mg Tab, 40 MG PO DAILY Prescribed by: YELENA GUTIERREZ on 08/26/19 1645 Patient Home Medication List Home Medication List Reviewed: Yes Review of Systems Review of Systems Constitutional: No chills; dizziness; No fever; malaise Respiratory: cough; No orthopnea Cardiovascular: No chest pain, No palpitations Gastrointestinal: No abdominal pain; nausea, vomiting Genitourinary: no symptoms reported Musculoskeletal: no symptoms reported Skin: no symptoms reported Psychiatric/Neurological: No Symptoms Reported Past Mtlhbsk-Kmovxt-Pvdqkq Hx Past Med/Social Hx: Reviewed Nursing Past Med/Soc Hx Patient Social History 2nd Hand Smoke Exposure: Yes Recent Foreign Travel: No Contact w/Someone Who Travel: No Recent Infectious Disease Expo: Yes Recent Hopitalizations: No Immunizations Up To Date Tetanus Booster (TDap): Unknown PED Vaccines UTD: Yes Date of Influenza Vaccine: Jul 10, 2019 Seasonal Allergies Seasonal Allergies: No Past Medical History Surgeries: Yes (URETHRAL DILATION) Adenoidectomy, Section, Hysterectomy, Oophorectomy, Orthopedic, Tonsillectomy Respiratory: No Cardiac: No Neurological: No Reproductive Disorders: Yes (UTERINE FIBROIDS, POLYPS, ENDOMETRIOSIS, OVARIAN CYSTS; HYST/BSO 2016) Female Reproductive Disorders: Endometriosis, Ovarian Cyst, 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 Sexually Transmitted Disease: No HIV/AIDS: No Genitourinary: Yes (URETHRAL STRICTURE) Gastrointestinal: No Musculoskeletal: No Endocrine: No HEENT: No Loss of Vision: Denies Hearing Impairment: Denies Cancer: No Psychosocial: Yes (POST DEPRESSION) Anxiety, Depression Integumentary: Yes Psoriasis Blood Disorders: No Adverse Reaction/Blood Tranf: No Family Medical History Arthritis 19 FATHER, Onset:40's - 50 19 MOTHER, Onset:30's - 40 Asthma G8 BROTHER, Onset:Infancy Completed stroke 19 MOTHER, Onset:40's - 50 (4 strokes) Diabetes mellitus 19 MOTHER, Onset:40's - 50 Headache disorder 19 MOTHER, Onset:30's - 40 (migraines) Hypercholesterolemia 19 MOTHER, Onset:40's - 50 Hypertension 19 FATHER, Onset:40's - 50 19 MOTHER, Onset:30's - 40 G8 BROTHER, Onset:Adolescence Severe allergy 19 MOTHER, Onset:Childhood (PCN, EES) G8 BROTHER, Onset:Childhood (PCN) No Family History of: AIDS Abdominal aortic aneurysm [place]'s disease Alcoholism Alzheimer's disease Aphasia Cancer of mouth Cardiovascular disease Cataracts Colon cancer Congenital disease Congenital heart disease Coronary thrombosis Cystic fibrosis Deafness or hearing loss Dementia Drug abuse Dysphasia Fibrocystic disease of breast Gastroenteritis Glaucoma Infertility Kidney disease Myocardial infarction Neoplasm Not obtainable due to adoption Osteoporosis Parkinson's disease Prostate cancer Psychosocial problem Respiratory disorder Seizure disorder Thyroid disease Tuberculosis Visual disorder Physical Exam Vital Signs Vital Signs - First Documented 06/21/20 19:24 Temp 37.2 Pulse 92 Resp 18 B/P (MAP) 132/76 (94) O2 Delivery Room Air Capillary Refill : Less Than 3 Seconds Height, Weight, BMI Height: 5'3.00" Weight: 200lbs. 0.0oz. [id number]; 37.00 BMI Method:Stated General Appearance: No Apparent Distress, WD/WN HEENT: PERRL/EOMI Neck: Non Tender, Supple Respiratory: Lungs Clear, Normal Breath Sounds Cardiovascular: Regular Rate, Rhythm, No Edema Gastrointestinal: Non Tender, Soft Extremity: Normal Capillary Refill Neurologic/Psychiatric: Alert, Oriented x3, improvement coordinator II-XII Norm as Tested Skin: Normal Color, Warm/Dry Progress/Results/Core Measures Suspected Sepsis Recent Fever Within 48 Hours: No Infection Criteria Present: None New/Unexplained Altered Menta: No Sepsis Screen: No Definite Risk SIRS Temperature: Pulse: 92 Respiratory Rate: 18 Laboratory Tests 06/21/20 19:38: White Blood Count 7.2 Blood Pressure 132 /76 Mean: 94 Laboratory Tests 06/21/20 19:38: Creatinine 0.72, Platelet Count 256, Total Bilirubin 0.7 Results/Orders Lab Results Laboratory Tests Test 06/21/20 19:38 Range/Units White Blood Count 7.2 4.3-11.0 10^3/uL Red Blood Count 4.78 4.35-5.85 10^6/uL Hemoglobin 14.3 11.5-16.0 G/DL Hematocrit 41 35-52 % Mean Corpuscular Volume 86 80-99 FL Mean Corpuscular Hemoglobin 30 25-34 PG Mean Corpuscular Hemoglobin Concent 35 32-36 G/DL Red Cell Distribution Width 12.3 10.0-14.5 % Platelet Count 256 130-400 10^3/uL Mean Platelet Volume 10.6 H 7.4-10.4 FL Neutrophils (%) (Auto) 68 42-75 % Lymphocytes (%) (Auto) 25 12-44 % Monocytes (%) (Auto) 6 0-12 % Eosinophils (%) (Auto) 0 0-10 % Basophils (%) (Auto) 0 0-10 % Neutrophils # (Auto) 4.9 1.8-7.8 X 10^3 Lymphocytes # (Auto) 1.8 1.0-4.0 X 10^3 Monocytes # (Auto) 0.5 0.0-1.0 X 10^3 Eosinophils # (Auto) 0.0 0.0-0.3 10^3/uL Basophils # (Auto) 0.0 0.0-0.1 10^3/uL Sodium Level 134 L 135-145 MMOL/L Potassium Level 3.6 3.6-5.0 MMOL/L Chloride Level 98 98-107 MMOL/L Carbon Dioxide Level 22 21-32 MMOL/L Anion Gap 14 5-14 MMOL/L Blood Urea Nitrogen 12 7-18 MG/DL Creatinine 0.72 0.60-1.30 MG/DL Estimat Glomerular Filtration Rate > 60 BUN/Creatinine Ratio 17 Glucose Level 95 70-105 MG/DL Calcium Level 9.1 8.5-10.1 MG/DL Corrected Calcium 8.8 8.5-10.1 MG/DL Total Bilirubin 0.7 0.1-1.0 MG/DL Aspartate Amino Transf (AST/SGOT) 26 5-34 U/L Alanine Aminotransferase (ALT/SGPT) 20 0-55 U/L Alkaline Phosphatase 58 40-136 U/L C-Reactive Protein High Sensitivity 2.60 H 0.00-0.50 MG/DL Total Protein 7.6 6.4-8.2 GM/DL Albumin 4.4 3.2-4.5 GM/DL My Orders Orders - ELVIS GALINDOVOR L DO Cbc With Automated Diff (06/21/20 19:35) Comprehensive Metabolic Panel (06/21/20 19:35) Hs C Reactive Protein (06/21/20 19:35) Procalcitonin (Pct) (06/21/20 19:35) Ondansetron Injection (Zofran Injectio (06/21/20 19:45) Lactated Ringers (Lr 1000 Ml Iv Solution (06/21/20 19:35) Medications Given in ED Current Medications Medications Dose Ordered Sig/Taras Route Start Time Stop Time Status Last Admin Dose Admin Ondansetron HCl 4 mg ONCE ONCE IVP 06/21/20 19:45 06/21/20 19:46 DC 06/21/20 19:44 4 MG Vital Signs/I&O 06/21/20 06/21/20 19:24 19:42 Temp 37.2 Pulse 92 80 86 97 Resp 18 B/P (MAP) 132/76 (94) 127/74 (91) 127/81 (96) 126/84 (98) O2 Delivery Room Air Capillary Refill : Less Than 3 Seconds Blood Pressure Mean: 94 Progress Note : Time: 20:40 Progress Note Patient with no vomiting while here in the ER. Patient vitals stable with no significant findings on her labs. We'll discharge her with some Zofran pres cription. Patient should follow-up with her primary care provider as needed or return to the ER as needed patient should follow COVID precautions since she has known positive. Departure Impression Primary Impression: 2019 novel coronavirus disease (COVID-19) Additional Impression: Nausea & vomiting Qualified Codes: R11.2 - Nausea with vomiting, unspecified Disposition: 01 HOME, SELF-CARE Condition: Stable Departure-Patient Inst. Referrals: [facility] (PCP) Primary Care Physician JAM THOMPSON APRN (Family) Primary Care Physician Patient Instructions: Nausea and Vomiting, Adult, Coronavirus Disease 2019 (COVID-19) (DC) Add. Discharge Instructions: Please follow CDC isolation and social distancing guidelines All discharge instructions reviewed with patient and/or family. Voiced understanding. Scripts Ondansetron (Ondansetron Odt) 4 Mg Tab.rapdis 4 MG PO Q6H PRN for NAUSEA/VOMITING, #20 TAB 0 Refills Prov: ABDELRAHMAN GALINDO DO 06/21/20 ABDELRAHMAN GALINDO DO Jun 21, 2020 19:31
[2020-06-21] MEDS ORDERED: LACTATED RINGERS 1,000 ML IV STA (19:35)
[2020-06-21 19:42] VITALS: BP_SYST 126; BP_SYST 127; BP_DIAS 74; BP_DIAS 81; BP_DIAS 84
[2020-06-21] MEDS ORDERED: ONDANSETRON 4 MG/2 ML (SDV) Z0FRAN IVP ONE (19:45)
--- NOTE | 2020-06-21 19:45 | NUR ---
Pt reports that she has had n/v since Tuesday and started feeling lightheaded today. States she's had a cough and loss of taste and smell since being diagnosed with Covid. Pt states she hasn't been able to keep fluids down today. Pt to room and IV started; labs drawn. VSS. Will continue to monitor.
[2020-06-21 20:10] LABS: BASOPHILS % (AUTO) 0 % (0-10); EOSINOPHILS % (AUTO) 0 % (0-10); HEMATOCRIT 41 % (35-52); HEMOGLOBIN 14.3 G/DL (11.5-16.0); LYMPHOCYTES # (AUTO) 1.8 X 10^3 (1.0-4.0); LYMPHOCYTES % (AUTO) 25 % (12-44); MEAN CORPUSCULAR HEMOGLOBIN 30 PG (25-34); MEAN CORPUSCULAR HGB CONC 35 G/DL (32-36); MEAN CORPUSCULAR VOLUME 86 FL (80-99); MEAN PLATELET VOLUME 10.6 FL (7.4-10.4); MONOCYTES # (AUTO) 0.5 X 10^3 (0.0-1.0); MONOCYTES % (AUTO) 6 % (0-12); NEUTROPHILS # (AUTO) 4.9 X 10^3 (1.8-7.8); NEUTROPHILS % (AUTO) 68 % (42-75); PLATELET COUNT 256 10^3/uL (130-400); WHITE BLOOD COUNT 7.2 10^3/uL (4.3-11.0)
[2020-06-21 20:19] LABS: ALBUMIN 4.4 GM/DL (3.2-4.5); CHLORIDE 98 MMOL/L (98-107); POTASSIUM 3.6 MMOL/L (3.6-5.0); SODIUM 134 MMOL/L (135-145)
[2020-06-21 20:20] LABS: CALCIUM 9.1 MG/DL (8.5-10.1)
[2020-06-21 20:21] LABS: GLUCOSE 95 MG/DL (70-105)
[2020-06-21 20:22] LABS: TOTAL PROTEIN 7.6 GM/DL (6.4-8.2)
[2020-06-21 20:23] LABS: BILIRUBIN,TOTAL 0.7 MG/DL (0.1-1.0); CARBON DIOXIDE 22 MMOL/L (21-32)
[2020-06-21 20:25] LABS: ALKALINE PHOSPHATASE 58 U/L (40-136); CREATININE SERUM 0.72 MG/DL (0.60-1.30); GFR ESTIMATED > 60
[2020-06-21 20:26] LABS: BUN/CREATININE RATIO 17
[2020-06-21 20:28] LABS: ALANINE AMINOTRANSFERASE 20 U/L (0-55)
[2020-06-21] MEDS ORDERED: ONDA4TAB11 PO (20:43)
[2020-06-21 21:10] VITALS: BP 19/53
== END 2020-06-21 21:09 | disposition home or self-care (01) ==
LOC: EDUNIT# 18:40 → ER 18:42
DX: U07.1 COVID-19 (principal); R11.2 Nausea with vomiting, unspecified; Z82.49 Family history of ischemic heart disease and other diseases of the circulatory system; Z88.0 Allergy status to penicillin; Z88.1 Allergy status to other antibiotic agents; Z88.8 Allergy status to other drugs, medicaments and biological substances; Z79.52 Long term (current) use of systemic steroids; Z77.22 Contact with and (suspected) exposure to environmental tobacco smoke (acute) (chronic)
CPT/HCPCS: 36415; 80053; 84145; 85025; 86141

== ENCOUNTER 2021-01-24 16:27 | Emergency (ER) | payer OTHER ==
[~2021-01-24] VITALS: Ht 157 cm; Wt 99.0 kg
[~2021-01-24 16:27] MED LIST changes: +ONDA4TAB11 PO
[2021-01-24] MEDS ORDERED: ONDANSETRON 4 MG/2 ML (SDV) Z0FRAN IVP ONE (16:30)
[2021-01-24] MEDS ORDERED: LORazepam INJ 2 MG/ML (ATIVAN) VIAL IVP PRN (16:30)
[2021-01-24 16:47] LABS: BASOPHILS % (AUTO) 0 % (0-10); EOSINOPHILS % (AUTO) 1 % (0-10); HEMATOCRIT 45 % (35-52); HEMOGLOBIN 14.9 g/dL (11.5-16.0); LYMPHOCYTES # (AUTO) 1.2 10^3/uL (1.0-4.0); LYMPHOCYTES % (AUTO) 39 % (12-44); MEAN CORPUSCULAR HEMOGLOBIN 30 pg (25-34); MEAN CORPUSCULAR HGB CONC 33 g/dL (32-36); MEAN CORPUSCULAR VOLUME 92 fL (80-99); MEAN PLATELET VOLUME 10.4 fL (9.0-12.2); MONOCYTES % (AUTO) 1 % (0-12); NEUTROPHILS # (AUTO) 1.5 10^3/uL (1.8-7.8); NEUTROPHILS % (AUTO) 52 % (42-75); PLATELET COUNT 287 10^3/uL (130-400)
[2021-01-24 16:48] LABS: BILIRUBIN,URINE NEGATIVE (NEGATIVE); CLARITY,URINE SL CLOUDY; COLOR,URINE YELLOW; GLUCOSE, URINE (UA) NEGATIVE (NEGATIVE); KETONES,URINE NEGATIVE (NEGATIVE); LEUKOCYTE ESTERASE ,URINE NEGATIVE (NEGATIVE); NITRITE,URINE NEGATIVE (NEGATIVE); PROTEIN,URINE NEGATIVE (NEGATIVE)
[2021-01-24 16:50] LABS: CHLORIDE 103 MMOL/L (98-107)
[2021-01-24 16:51] LABS: SODIUM 141 MMOL/L (135-145)
[2021-01-24 16:52] LABS: CALCIUM 9.5 MG/DL (8.5-10.1); GLUCOSE 102 MG/DL (70-105)
--- NOTE | 2021-01-24 16:52 | ED Back Pain ---
General Chief Complaint: Back Problems Stated Complaint: BACK SPASMS Nursing Triage Note: ARRIVED VIA EMS FROM [facility]. STATES SHE REICEVED A STEROID INJECTION FOR POSSIBLE SINUS INFECTION AND STARTED HAVING SEVERE BACK SPASMS AND NAUSEA. Nursing Sepsis Screen: No Definite Risk Source of Information: Patient Exam Limitations: No Limitations History of Present Illness Date Seen by Provider: Jan 24, 2021 Time Seen by Provider: 16:50 Initial Comments ER with reports of spasms in her back chest and nausea and anxiety that started after a steroid injection. She was at [facility] for a 3-day history of nasal congestion which she thought was allergies. They told her it was a sinus infection and gave her an injection of Depo-Medrol and Decadron intramuscularly. Location: Lumbar Spine, Paraspinous Muscles Timing/Duration: 1-2 Days Severity: Moderate Pain/Injury Location: Back Associated Symptoms: denies symptoms Allergies and Home Medications Allergies Coded Allergies: Penicillins (Verified Allergy, Unknown, HIVES, 05/19/17) amoxicillin (Verified Allergy, Unknown, HIVES, 05/19/17) cefaclor (Unverified Allergy, Unknown, 04/14/15) clavulanic acid (Verified Allergy, Unknown, HIVES, 05/19/17) levofloxacin (Verified Allergy, Unknown, 08/12/16) oseltamivir (Verified Allergy, Unknown, 11/16/17) Uncoded Allergies: PROMETHAZINE WITH CODEINE (Allergy, Unknown, 10/17/17) Home Medications Acetaminophen with Codeine 1 Each Tablet, 1 EACH PO Q6H PRN for COUGH Prescribed by: SELVIN BLANTON on 09/15/19 1427 Azithromycin 500 Mg Tablet, 500 MG PO DAILY Prescribed by: WILLIAN MACHADO on 01/03/20116 Benzonatate 100 Mg Capsule, 100 MG PO TID Prescribed by: WILLIAN MACHADO on 01/03/20116 Guaifenesin/Dextromethorphan 1 Each Tbmp.12hr, 1 EACH PO BID Prescribed by: WILLIAN MACHADO on 01/03/20116 Nitrofurantoin Monohyd/M-Cryst 100 Mg Capsule, 1 TAB PO BID Prescribed by: WILLIAN MACHADO on 01/03/20116 Ondansetron 4 Mg Tab.rapdis, 4 MG PO Q6H PRN for NAUSEA/VOMITING Prescribed by: ABDELRAHMAN GALINDO on 06/21/202042 Prednisone 20 Mg Tab, 40 MG PO DAILY Prescribed by: YELENA GUTIERREZ on 08/26/19 1645 Patient Home Medication List Home Medication List Reviewed: Yes Review of Systems Constitutional: see HPI; No chills EENTM: see HPI Respiratory: no symptoms reported; No cough, No short of breath Cardiovascular: see HPI Genitourinary: no symptoms reported Musculoskeletal: no symptoms reported Skin: no symptoms reported Psychiatric/Neurological: No Symptoms Reported Past Ralkjjf-Htbjgj-Odidcl Hx Patient Social History Alcohol Use: Denies Use Smoking Status: Never a Smoker 2nd Hand Smoke Exposure: Yes Recent Infectious Disease Expo: No Recent Hopitalizations: No Immunizations Up To Date Tetanus Booster (TDap): Unknown PED Vaccines UTD: Yes Date of Influenza Vaccine: Jul 10, 2019 Seasonal Allergies Seasonal Allergies: No Past Medical History Surgeries: Yes (URETHRAL DILATION) Adenoidectomy, Section, Hysterectomy, Oophorectomy, Orthopedic, Tonsillectomy Respiratory: No Cardiac: No Neurological: No Reproductive Disorders: Yes (UTERINE FIBROIDS, POLYPS, ENDOMETRIOSIS, OVARIAN CYSTS; HYST/BSO 2016) Female Reproductive Disorders: Endometriosis, Ovarian Cyst, 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 Transmitted Disease: No HIV/AIDS: No Genitourinary: Yes (URETHRAL STRICTURE) Gastrointestinal: No Musculoskeletal: No Endocrine: No HEENT: No Loss of Vision: Denies Hearing Impairment: Denies Cancer: No Psychosocial: Yes (POST DEPRESSION) Anxiety, Depression Integumentary: Yes Psoriasis Blood Disorders: No Adverse Reaction/Blood Tranf: No Family Medical History Arthritis 19 FATHER, Onset:40's - 50 19 MOTHER, Onset:30's - 40 Asthma G8 BROTHER, Onset:Infancy Completed stroke 19 MOTHER, Onset:40's - 50 (4 strokes) Diabetes mellitus 19 MOTHER, Onset:40's - 50 Headache disorder 19 MOTHER, Onset:30's - 40 (migraines) Hypercholesterolemia 19 MOTHER, Onset:40's - 50 Hypertension 19 FATHER, Onset:40's - 50 19 MOTHER, Onset:30's - 40 G8 BROTHER, Onset:Adolescence Severe allergy 19 MOTHER, Onset:Childhood (PCN, EES) G8 BROTHER, Onset:Childhood (PCN) No Family History of: AIDS Abdominal aortic aneurysm [place]'s disease Alcoholism Alzheimer's disease Aphasia Cancer of mouth Cardiovascular disease Cataracts Colon cancer Congenital disease Congenital heart disease Coronary thrombosis Cystic fibrosis Deafness or hearing loss Dementia Drug abuse Dysphasia Fibrocystic disease of breast Gastroenteritis Glaucoma Infertility Kidney disease Myocardial infarction Neoplasm Not obtainable due to adoption Osteoporosis Parkinson's disease Prostate cancer Psychosocial problem Respiratory disorder Seizure disorder Thyroid disease Tuberculosis Visual disorder Physical Exam Vital Signs Vital Signs - First Documented 01/24/21 16:29 Temp 36.8 Pulse 104 Resp 16 B/P (MAP) 127/92 (104) O2 Delivery Room Air Capillary Refill : Less Than 3 Seconds Height, Weight, BMI Height: 5'3.00" Weight: 200lbs. 0.0oz. 90.590873rn; 40.00 BMI Method:Stated General Appearance: No Apparent Distress, WD/WN, Anxious Neck: Full Range of Motion, Normal Inspection Respiratory: No Accessory Muscle Use, No Respiratory Distress Gastrointestinal: Normal Bowel Sounds, Non Tender, Soft Extremity: Normal Capillary Refill, Normal Inspection Neurologic/Psychiatric: Alert, Oriented x3 Skin: Normal Color, Warm/Dry Progress/Results/Core Measures Results/Orders Lab Results Laboratory Tests Test 01/24/21 16:36 01/24/21 16:43 Range/Units White Blood Count 3.0 L 4.3-11.0 10^3/uL Red Blood Count 4.93 3.80-5.11 10^6/uL Hemoglobin 14.9 11.5-16.0 g/dL Hematocrit 45 35-52 % Mean Corpuscular Volume 92 80-99 fL Mean Corpuscular Hemoglobin 30 25-34 pg Mean Corpuscular Hemoglobin Concent 33 32-36 g/dL Red Cell Distribution Width 12.4 10.0-14.5 % Platelet Count 287 130-400 10^3/uL Mean Platelet Volume 10.4 9.0-12.2 fL Immature Granulocyte % (Auto) 6 % Neutrophils (%) (Auto) 52 42-75 % Lymphocytes (%) (Auto) 39 12-44 % Monocytes (%) (Auto) 1 0-12 % Eosinophils (%) (Auto) 1 0-10 % Basophils (%) (Auto) 0 0-10 % Neutrophils # (Auto) 1.5 L 1.8-7.8 10^3/uL Lymphocytes # (Auto) 1.2 1.0-4.0 10^3/uL Monocytes # (Auto) 0.0 0.0-1.0 10^3/uL Eosinophils # (Auto) 0.0 0.0-0.3 10^3/uL Basophils # (Auto) 0.0 0.0-0.1 10^3/uL Immature Granulocyte # (Auto) 0.2 H 0.0-0.1 10^3/uL Sodium Level 141 135-145 MMOL/L Potassium Level 4.0 3.6-5.0 MMOL/L Chloride Level 103 98-107 MMOL/L Carbon Dioxide Level 24 21-32 MMOL/L Anion Gap 14 5-14 MMOL/L Blood Urea Nitrogen 7 7-18 MG/DL Creatinine 0.84 0.60-1.30 MG/DL Estimat Glomerular Filtration Rate > 60 BUN/Creatinine Ratio 8 Glucose Level 102 70-105 MG/DL Calcium Level 9.5 8.5-10.1 MG/DL Urine Color YELLOW Urine Clarity SL CLOUDY Urine pH 7.0 5-9 Urine Specific [place] 1.020 1.016-1.022 Urine Protein NEGATIVE NEGATIVE Urine Glucose (UA) NEGATIVE NEGATIVE Urine Ketones NEGATIVE NEGATIVE Urine Nitrite NEGATIVE NEGATIVE Urine Bilirubin NEGATIVE NEGATIVE Urine Urobilinogen 0.2 < = 1.0 MG/DL Urine Leukocyte Esterase NEGATIVE NEGATIVE Urine RBC (Auto) NEGATIVE NEGATIVE Urine RBC NONE /HPF Urine WBC NONE /HPF Urine Squamous Epithelial Cells 2-5 /HPF Urine Crystals NONE /LPF Urine Bacteria TRACE /HPF Urine Casts NONE /LPF Urine Mucus MODERATE H /LPF Urine Culture Indicated NO My Orders Orders - SELVIN BLANTON APRN Lorazepam Injection (Ativan Injection) (01/24/21 16:30) Ondansetron Injection (Zofran Injectio (01/24/21 16:30) Cbc With Automated Diff (01/24/21 16:30) Basic Metabolic Panel (01/24/21 16:30) Ua Culture If Indicated (01/24/21 16:30) Manual Differential (01/24/21 16:36) Chest 1 View, Ap/Pa Only (01/24/21 17:04) Ekg Tracing (01/24/21 17:04) Medications Given in ED Current Medications Medications Dose Ordered Sig/Taras Route Start Time Stop Time Status Last Admin Dose Admin Lorazepam 0.5 mg ONCE PRN IVP 01/24/21 16:30 01/24/21 16:36 0.5 MG Ondansetron HCl 8 mg ONCE ONCE IVP 01/24/21 16:30 01/24/21 16:33 DC 01/24/21 16:36 8 MG Vital Signs/I&O 01/24/21 16:29 Temp 36.8 Pulse 104 Resp 16 B/P (MAP) 127/92 (104) O2 Delivery Room Air Blood Pressure Mean: 104 Departure Impression Primary Impression: Nausea Additional Impression: Anxiety Disposition: 01 HOME, SELF-CARE Condition: Improved Departure-Patient Inst. Decision time for Depature: 17:29 Referrals: [facility] (PCP) Primary Care Physician JAM THOMPSON APRN (Family) Primary Care Physician Patient Instructions: NO INSTRUCTIONS GIVEN Add. Discharge Instructions: All discharge instructions reviewed with patient and/or family. Voiced understanding. SELVIN BLANTON APRN Jan 24, 2021 16:52
[2021-01-24 16:54] LABS: CARBON DIOXIDE 24 MMOL/L (21-32)
[2021-01-24 16:56] LABS: CREATININE SERUM 0.84 MG/DL (0.60-1.30); GFR ESTIMATED > 60
[2021-01-24 16:57] LABS: BUN/CREATININE RATIO 8
[2021-01-24 17:01] LABS: BACTERIA,URINE TRACE /HPF
--- NOTE | 2021-01-24 17:34 | Diagnostic Imaging Report ---
EXAMINATION: Chest 1 view. HISTORY: Chest pain. COMPARISON: 01/03/2020. FINDINGS: The lung volumes are normal. No focal consolidation is seen. No large pleural effusion or pneumothorax is seen. The cardiomediastinal silhouette is normal in size and contour. No acute osseous abnormality is seen. IMPRESSION: No acute pleuroparenchymal process. Dictated by: Dictated on workstation # [id number]
[2021-01-24 17:36] VITALS: BP 128/71
[2021-01-24 17:59] LABS: EOSINOPHILS % (MANUAL) 2 %; LYMPHOCYTES % (MANUAL) 42 %; MONOCYTES % (MANUAL) 2 %; NEUTROPHILS % (MANUAL) 54 %; RBC MORPH NORMAL
== END 2021-01-24 17:36 | disposition home or self-care (01) ==
LOC: EDUNIT# 16:27 → ER 16:28
DX: R11.0 Nausea (principal); F41.9 Anxiety disorder, unspecified; Z88.0 Allergy status to penicillin; Z88.1 Allergy status to other antibiotic agents; Z88.8 Allergy status to other drugs, medicaments and biological substances; Z77.22 Contact with and (suspected) exposure to environmental tobacco smoke (acute) (chronic); Z79.52 Long term (current) use of systemic steroids
CPT/HCPCS: 36415; 71045; 80048; 81000; 85007; 85027; 93005

== ENCOUNTER 2023-02-17 18:43 | Emergency (ER) | payer OTHER ==
[~2023-02-17] VITALS: Ht 157 cm; Wt 100.0 kg
[~2023-02-17 18:43] MED LIST changes: -SULF1TAB35 PO; +SULF1TAB38 PO
--- NOTE | 2023-02-17 19:11 | ED General ---
General Chief Complaint: General Problems/Pain Stated Complaint: LIPS/FINGERS TINGLING/EYE TWITCHING Nursing Triage Note: PT HAD COMPLETE THYROIDECTOMY 2 DAYS AGO AND TODAY DEVELOPED FACIAL, EYE, AND HAND TWITCHING AND TINGLING. PT STARTED LEVOTHYROXINE YESTERDAY. PT DENIES PAIN AT THIS TIME. Source of Information: Patient, Old Records History of Present Illness Date Seen by Provider: February 17, 2023 Time Seen by Provider: 18:55 Initial Comments PT ARRIVES VIA POV FROM HOME PT HAD COMPLETE THYROIDECTOMY WITH LYMPH NODE REMOVAL ON Tuesday02/15/[address] SHORT AT [facility], WAS DISMISSED ON TUESDAY SHE HAS A DRAIN IN PLACE AT THIS TIME SHE DENIES FEVER, DENIES PAIN, DENIES DIFFICULTY SWALLOWING SHE WAS STARTED ON LEVOTHYROXINE 100 MCG --FIRST DOSE YESTERDAY SHE STATES THE THYROID WAS CANCEROUS. RESULTS FROM LYMPH NODES ARE STILL PENDING AT THIS TIME. HAS FOLLOW UP APPOINTMENT IN 2 WEEKS SINCE THIS MORNING, SHE HAS BEEN HAVING NUMBNESS AND TINGLING IN HER FINGERS AND LIPS, AND MUSCLE TWITCHING OF HER LIPS, EYELIDS, HANDS, LEGS, AND CRAMPING IN HER LEGS--SYMPTOMS HAVE GOTTEN WORSE THROUGHOUT THE DAY, ESPECIALLY IN THE LAST HOUR SHE CALLED THE [employer] AT [facility], SHE WAS ADVISED TO TAKE TUMS--SHE TOOK 1 000 MG OF TUMS JUST PRIOR TO ARRIVAL, AND WAS TOLD TO COME HERE. NO DIFFICULTY BREATHING NO SWELLING IN HANDS / FEET OR FACE NO DIZZINESS OR SYNCOPE NO CHEST PAIN PCP: KAMI-K, HIMANSHU BARRIS Allergies and Home Medications Allergies Coded Allergies: Penicillins (Verified Allergy, Unknown, HIVES, 05/19/17) amoxicillin (Verified Allergy, Unknown, HIVES, 05/19/17) cefaclor (Unverified Allergy, Unknown, 04/14/15) clavulanic acid (Verified Allergy, Unknown, HIVES, 05/19/17) levofloxacin (Verified Allergy, Unknown, 08/12/16) oseltamivir (Verified Allergy, Unknown, 11/16/17) Uncoded Allergies: PROMETHAZINE WITH CODEINE (Allergy, Unknown, 10/17/17) Patient Home Medication List Home Medication List Reviewed: Yes Acetaminophen with Codeine (Tylenol with Codeine #3 Tablet) 1 Each Tablet, 1 EACH PO Q6H PRN for COUGH Prescribed by: SELVIN BLANTON on 09/15/19 1427 Azithromycin (Zithromax) 500 Mg Tablet, 500 MG PO DAILY Prescribed by: WILLIAN MACHADO on 01/03/20116 Benzonatate (Tessalon Perles) 100 Mg Capsule, 100 MG PO TID Prescribed by: WILLIAN MACHADO on 01/03/20 011 Guaifenesin/Dextromethorphan (Mucinex Dm ER 1,200-60 mg Tab) 1 Each Tbmp.12hr, 1 EACH PO BID Prescribed by: WILLIAN MACHADO on 01/03/20 011 Nitrofurantoin Monohyd/M-Cryst (Macrobid 100 mg Capsule) 100 Mg Capsule, 1 TAB PO BID Prescribed by: WILLIAN MACHADO on 01/03/20116 Norgestimate-Ethinyl Estradiol (Mononessa 28 Tablet) 1 Each Tablet, (Reported) Entered as Reported by: BECKY COLIN on 11/16/17 1007 Ondansetron (Ondansetron Odt) 4 Mg Tab.rapdis, 4 MG PO Q6H PRN for NAUSEA/VOMITING Prescribed by: ABDELRAHMAN GALINDO on 06/21/202042 Prednisone (Prednisone) 20 Mg Tab, 40 MG PO DAILY Prescribed by: YELENA GUTIERREZ on 08/26/19 1645 Review of Systems Review of Systems Constitutional: no symptoms reported EENTM: see HPI Respiratory: no symptoms reported Cardiovascular: no symptoms reported Gastrointestinal: no symptoms reported Genitourinary: no symptoms reported Musculoskeletal: see HPI Skin: no symptoms reported Psychiatric/Neurological: See HPI Hematologic/Lymphatic: No Symptoms Reported Immunological/Allergic: no symptoms reported Past Pqevifs-Ssytbw-Mmvwnv Hx Patient Social History Tobacco Use?: No Substance use?: No Alcohol Use?: No Pt feels they are or have been: No Immunizations Up To Date Tetanus Booster (TDap): Unknown PED Vaccines UTD: Yes Seasonal Allergies Seasonal Allergies: No Past Medical History Surgeries: Yes (URETHRAL DILATION;THYROIDECTOMY 02/15/23) Adenoidectomy, Section, Hysterectomy, Oophorectomy, Orthopedic, Thyroidectomy, Tonsillectomy Respiratory: No Cardiac: No Neurological: No Reproductive Disorders: Yes (UTERINE FIBROIDS, POLYPS, ENDOMETRIOSIS, OVARIAN CYSTS; HYST/BSO 2016) Female Reproductive Disorders: Endometriosis, Ovarian Cyst, Polycystic Ovarian Dis J[employer]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 [employer]ER History: Hysterectomy Sexually Transmitted Disease: No HIV/AIDS: No Genitourinary: Yes (URETHRAL STRICTURE) Gastrointestinal: No Musculoskeletal: No Endocrine: Yes (THYROIDECTOMY 02/15/23 AT [facility]) HEENT: No Loss of Vision: Denies Hearing Impairment: Denies Cancer: No Psychosocial: Yes (POST DEPRESSION) Anxiety, Depression Integumentary: Yes Psoriasis Blood Disorders: No Adverse Reaction/Blood Tranf: No Family Medical History Arthritis 19 FATHER, Onset:40's - 50 19 MOTHER, Onset:30's - 40 Asthma G8 BROTHER, Onset:Infancy Completed stroke 19 MOTHER, Onset:40's - 50 (4 strokes) Diabetes mellitus 19 MOTHER, Onset:40's - 50 Headache disorder 19 MOTHER, Onset:30's - 40 (migraines) Hypercholesterolemia 19 MOTHER, Onset:40 - Hypertension 19 FATHER, Onset:40s - 50 19 MOTHER, Onset:30's - 40 G8 BROTHER, Onset:Adolescence Severe allergy 19 MOTHER, Onset:Childhood (PCN, EES) G8 BROTHER, Onset:Childhood (PCN) No Family History of: AIDS Abdominal aortic aneurysm Vladimir's disease Alcoholism Alzheimer's disease Aphasia Cancer of mouth Cardiovascular disease Cataracts Colon cancer Congenital disease Congenital heart disease Coronary thrombosis Cystic fibrosis Deafness or hearing loss Dementia Drug abuse Dysphasia Fibrocystic disease of breast Gastroenteritis Glaucoma Infertility Kidney disease Myocardial infarction Neoplasm Not obtainable due to adoption Osteoporosis Parkinson's disease Prostate cancer Psychosocial problem Respiratory disorder Seizure disorder Thyroid disease Tuberculosis Visual disorder Physical Exam Vital Signs Vital Signs - First Documented 02/17/23 02/17/23 18:55 22:24 Temp 36.8 Pulse 103 Resp 20 B/P (MAP) 118/70 Pulse Ox 97 O2 Delivery Room Air Capillary Refill : Less Than 3 Seconds Height, Weight, BMI Height: 5'3.00" Weight: 200lbs. 0.0oz. [id number]; 40.00 BMI Method:Stated General Appearance: No Apparent Distress, WD/WN HEENT: PERRL/EOMI, Normal ENT Inspection, Moist Mucous Membranes Neck: Other (SURGICAL SITE TO NECK WITH NORMAL APPEARANCE. J-P DRAIN IN PLACE, WITH SMALL AMOUNT OF SERO-SANGUINOUS DRAINAGE. NO SIGNS OF INFECTION) Respiratory: Normal Breath Sounds, No Accessory Muscle Use, No Respiratory Di stress Cardiovascular: Regular Rate, Rhythm, No Murmur Gastrointestinal: Soft Extremity: Normal Capillary Refill, Normal Inspection, Normal Range of Motion, Non Tender, No Calf Tenderness, No Pedal Edema Neurologic/Psychiatric: Alert, Oriented x3, No Motor/Sensory Deficits, Normal Mood/Affect, last ironer II-XII Norm as Tested, Other (SHE DOES HAVE RANDOM TWITCHING OF HANDS AND FEET/LEGS. ) Skin: Normal Color, Warm/Dry; No Rash Progress/Results/Core Measures Suspected Sepsis SIRS Temperature: Pulse: 103 Respiratory Rate: 20 Laboratory Tests 02/17/23 19:05: White Blood Count 11.3H Blood Pressure / Mean: Laboratory Tests 02/17/23 19:05: Creatinine 0.86, Platelet Count 380, Total Bilirubin 0.7 02/17/23 21:00: Creatinine 0.85 Results/Orders Lab Results Laboratory Tests Test 02/17/23 19:05 02/17/23 21:00 Range/Units White Blood Count 11.3 H 4.3-11.0 10^3/uL Red Blood Count 4.66 3.80-5.11 10^6/uL Hemoglobin 14.0 11.5-16.0 g/dL Hematocrit 42 35-52 % Mean Corpuscular Volume 90 80-99 fL Mean Corpuscular Hemoglobin 30 25-34 pg Mean Corpuscular Hemoglobin Concent 33 32-36 g/dL Red Cell Distribution Width 12.9 10.0-14.5 % Platelet Count 380 130-400 10^3/uL Mean Platelet Volume 9.9 9.0-12.2 fL Immature Granulocyte % (Auto) 0 % Neutrophils (%) (Auto) 54 42-75 % Lymphocytes (%) (Auto) 38 12-44 % Monocytes (%) (Auto) 7 0-12 % Eosinophils (%) (Auto) 1 0-10 % Basophils (%) (Auto) 0 0-10 % Neutrophils # (Auto) 6.1 1.8-7.8 10^3/uL Lymphocytes # (Auto) 4.3 H 1.0-4.0 10^3/uL Monocytes # (Auto) 0.8 0.0-1.0 10^3/uL Eosinophils # (Auto) 0.1 0.0-0.3 10^3/uL Basophils # (Auto) 0.0 0.0-0.1 10^3/uL Immature Granulocyte # (Auto) 0.0 0.0-0.1 10^3/uL Sodium Level 140 141 135-145 MMOL/L Potassium Level 3.2 L 3.6 3.6-5.0 MMOL/L Chloride Level 102 102 98-107 MMOL/L Carbon Dioxide Level 26 27 21-32 MMOL/L Anion Gap 12 12 5-14 MMOL/L Blood Urea Nitrogen 10 10 7-18 MG/DL Creatinine 0.86 0.85 0.60-1.30 MG/DL Estimat Glomerular Filtration Rate 94 95 BUN/Creatinine Ratio 12 12 Glucose Level 121 H 94 70-105 MG/DL Calcium Level 7.7 L 7.8 L 8.5-10.1 MG/DL Corrected Calcium 7.7 L 8.5-10.1 MG/DL Magnesium Level 1.7 1.6-2.4 MG/DL Total Bilirubin 0.7 0.1-1.0 MG/DL Aspartate Amino Transf (AST/SGOT) 12 5-34 U/L Alanine Aminotransferase (ALT/SGPT) 17 0-55 U/L Alkaline Phosphatase 56 40-136 U/L Total Protein 7.0 6.4-8.2 GM/DL Albumin 4.0 3.2-4.5 GM/DL TSH [place] Testing 0.83 0.35-4.94 UIU/ML Human Chorionic Gonadotropin, Quant 6 H <5 MIU/ML Serum Test, Qualitative POSITIVE NEGATIVE My Orders Orders - WILLIAN MACHADO DO Ed Iv/Invasive Line Start (02/17/23 18:55) Monitor-Rhythm Ecg Trace Only (02/17/23 18:55) Cbc With Automated Diff (02/17/23 18:55) Comprehensive Metabolic Panel (02/17/23 18:55) Hcg,Qualitative Serum (02/17/23 18:55) Magnesium (02/17/23 18:55) Thyroid Analyzer (02/17/23 18:55) Potassium Chloride (Tablet) (Klor Con Ta (02/17/23 19:45) Calc Gluc 1 Gm/100 Ml Ivpb (Calcium Gluc (02/17/23 19:45) Hcg,Quantitative (02/17/23 20:23) Basic Metabolic Panel (02/17/23 20:58) Calc Gluc 1 Gm/100 Ml Ivpb (Calcium Gluc (02/17/23 21:45) Medications Given in ED Current Medications Medications Dose Ordered Sig/Taras Route Start Time Stop Time Status Last Admin Dose Admin Calcium Gluconate/ Sodium Chloride 100 ml @ 120 mls/hr ONCE ONCE IV 02/17/23 19:45 02/17/23 20:34 DC 02/17/23 19:54 120 MLS/HR Calcium Gluconate/ Sodium Chloride 100 ml @ 120 mls/hr ONCE ONCE IV 02/17/23 21:45 02/17/23 22:34 DC 02/17/23 21:47 120 MLS/HR Potassium Chloride 40 meq ONCE ONCE PO 02/17/23 19:45 02/17/23 19:46 DC 02/17/23 19:54 40 MEQ Vital Signs/I&O 02/17/23 02/17/23 18:55 22:24 Temp 36.8 Pulse 103 80 Resp 20 14 B/P (MAP) 118/70 Pulse Ox 97 98 O2 Delivery Room Air Room Air 02/18/23 00:00 Intake Total 100 ml Balance 100 ml Capillary Refill : Less Than 3 Seconds Progress Note : Progress Note GIVEN: -ORAL KCL -IV CALCIUM SYMPTOMS RESOLVED WITH THE ABOVE TREATMENTS REPEAT CALCIUM LEVEL IS STILL LOW AFTER FIRST DOSE OF CALCIUM, BUT PT'S SYMPTOMS HAVE RESOLVED WILL GIVE A SECOND DOSE OF IV CALCIUM PRIOR TO DISMISSAL, AND WILL HAVE PT START TAKING ORAL CALCIUM. NO ARRHYTHMIAS DURING ER STAY VITALS STABLE. SHE HAS AN APPOINTMENT TOMORROW AT SURGEON'S OFFICE TO GET J-P DRAIN REMOVED, THEN A FOLLOW UP APPOINTMENT IN 2 WEEKS WITH SURGEON. I ADVISED HER TO FOLLOW UP WITH HER PCP IN A FEW DAYS TO HAVE REPEAT LAB DONE. DISCUSSED TEST RESULTS, ANTICIPATED COURSE, SYMPTOMATIC TREATMENT, NEED FOR FOLLOW UP AND RETURN PRECAUTIONS REVIEWED PRIOR RECORDS, MOSTLY ER VISITS, IN ADDITION TO OUTPATIENT SURGERIES / PROCEDURES, ADMITS FOR DELIVERY OF CHILDREN. . Departure Impression Primary Impression: Iatrogenic hypocalcemia Additional Impressions: Hypokalemia Status post complete thyroidectomy Disposition: 01 HOME, SELF-CARE Condition: Improved Departure-Patient Inst. Decision time for Depature: 21:40 Referrals: [facility] (PCP) Primary Care Physician JAM THOMPSON APRN (Family) Primary Care Physician Patient Instructions: Hypocalcemia (DC), Thyroidectomy (DC), Hypokalemia (DC) Add. Discharge Instructions: CONTINUE YOUR MEDICATIONS PRESCRIBED TAKE CALCIUM CITRATE 1500 MG DAILY KEEP YOUR APPOINTMENT TOMORROW TO GET DRAIN REMOVED. KEEP YOUR FOLLOW UP APPOINTMENT IN 2 WEEKS WITH SURGEON. FOLLOW UP WITH [facility] IN 3-4 DAYS TO GET LAB RECHECKED RETURN TO ER IF YOUR SYMPTOMS RETURN All discharge instructions reviewed with patient and/or family. Voiced understanding. WILLIAN MACHADO DO February 17, 2023 19:11
[2023-02-17 19:14] LABS: BASOPHILS % (AUTO) 0 % (0-10); EOSINOPHILS # (AUTO) 0.1 10^3/uL (0.0-0.3); EOSINOPHILS % (AUTO) 1 % (0-10); HEMATOCRIT 42 % (35-52); LYMPHOCYTES # (AUTO) 4.3 10^3/uL (1.0-4.0); LYMPHOCYTES % (AUTO) 38 % (12-44); MEAN CORPUSCULAR HEMOGLOBIN 30 pg (25-34); MEAN CORPUSCULAR HGB CONC 33 g/dL (32-36); MEAN CORPUSCULAR VOLUME 90 fL (80-99); MEAN PLATELET VOLUME 9.9 fL (9.0-12.2); MONOCYTES # (AUTO) 0.8 10^3/uL (0.0-1.0); MONOCYTES % (AUTO) 7 % (0-12); NEUTROPHILS # (AUTO) 6.1 10^3/uL (1.8-7.8); NEUTROPHILS % (AUTO) 54 % (42-75); PLATELET COUNT 380 10^3/uL (130-400); WHITE BLOOD COUNT 11.3 10^3/uL (4.3-11.0)
[2023-02-17 19:28] LABS: POTASSIUM 3.2 MMOL/L (3.6-5.0)
[2023-02-17 19:29] LABS: CALCIUM 7.7 MG/DL (8.5-10.1)
[2023-02-17 19:32] LABS: BILIRUBIN,TOTAL 0.7 MG/DL (0.1-1.0)
[2023-02-17 19:34] LABS: CREATININE SERUM 0.86 MG/DL (0.60-1.30)
[2023-02-17 19:37] LABS: MAGNESIUM 1.7 MG/DL (1.6-2.4)
[2023-02-17] MEDS ORDERED: KCL 10 MEQ TAB (MICRO K) PO ONE (19:45)
[2023-02-17] MEDS ORDERED: CALC GLUC 1 GM/100 ML IVPB 100 ML IV ONE ×2 (19:45→21:45)
[2023-02-17 19:57] LABS: TSH (THYROID ANALYZER) 0.83 UIU/ML (0.35-4.94)
[2023-02-17 21:29] LABS: CALCIUM 7.8 MG/DL (8.5-10.1); CREATININE SERUM 0.85 MG/DL (0.60-1.30); POTASSIUM 3.6 MMOL/L (3.6-5.0)
[2023-02-17 22:24] VITALS: BP 118/70
== END 2023-02-17 22:41 | disposition home or self-care (01) ==
LOC: EDUNIT# 18:43 → ER 18:46
DX: E83.51 Hypocalcemia (principal); E87.6 Hypokalemia; E89.822 Postprocedural seroma of an endocrine system organ or structure following an endocrine system procedure; Z90.89 Acquired absence of other organs
CPT/HCPCS: 36415; 80048; 80053; 83735; 84443; 84702; 84703; 85025; 93041